=== PATIENT | female | born 1950 | race Caucasian/White ===

== ENCOUNTER → 2020-05-29 09:16 | Outpatient (CLI) | payer MEDICARE, SELFPAY ==
--- NOTE | 2020-05-29 09:22 | MM_ITS ---
PROCEDURE: MM DIG SCREENING MAMM BI W/CAD Referring Doctor: Sergio Giron Patient Age:69Y CLINICAL INDICATION: SCREENING 69-year-old. No hormones, no new complaints, noncontributory family history COMPARISON: MG DIGMAMMS MAMMOGRAM SCREEN-QUALITY IMPROVEMENT COORDINATOR N/C from 05/21/2008 MG DMSB DIGITAL MAMM-SCREEN BILATERAL from 07/20/2011 MG DMSB DIG MAMM-SCREEN FRANCOIS from 08/29/2013 MG DMSB DIG MAMM-SCREEN FRANCOIS from 10/23/2014 MG DMSB DIG MAMM-SCREEN FRANCOIS from 02/11/2016 MG DMSB DIG MAMM-SCREEN FRANCOIS W/CAD from 05/17/2017 TECHNIQUE: Standard CC and MLO images were obtained. R2 CAD reviewed. Bilateral digital breast tomosynthesis included. FINDINGS: Minimal residual fibroglandular elements with diffuse moderate fatty replacement. No new dominant or suspicious mass, no suspicious calcifications. Right breast. Stable Left breast: No new areas of concern. Stable Stable area of residual fibroglandular elements at the inferior left breast Bilateral follow-up 1 year recommended IMPRESSION: Stable bilateral mammogram. Bilateral follow-up 1 year recommended BI-RAD Category: 1 Negative FOLLOW-UP: 1YR 1 Year Follow-up (A letter has been sent to the patient regarding results of the study.) Dictated by: Ellis Andres MD 05/30/2020 12:45 Ellis Andres MD in [place] 05/30/2020 12:45
== END ==
PROVIDERS: PCP Family Medicine; Visit Provider Family Medicine
DX: Z12.31 Encounter for screening mammogram for malignant neoplasm of breast (principal)
CPT/HCPCS: 77063; 77067

== ENCOUNTER → 2021-04-11 09:53 | Outpatient (CLI) | payer MEDICARE, SELFPAY ==
--- NOTE | 2021-04-11 09:59 | XR_ITS ---
PROCEDURE: XR HIP RT 2-3V W/PELVIS CLINICAL INDICATION: RT HIP PAIN COMPARISON: CR,DX BONE3 BONE DENSITOMETRY(HIP:LT SPINE from 05/17/2017 FINDINGS: Are moderate osteoarthritic changes of the right hip with decrease in the joint space, osteosclerosis, and small osteophytes. No fracture or dislocation. No lytic or blastic change. An AP view of the pelvis shows a sclerotic focus in the proximal left femur but 15 mm and a small sclerotic focus in the left super acetabular region at 7 mm. There are degenerative changes in the lower lumbar spine. IMPRESSION: 1. Osteoarthritis of the right hip. 2. Blastic focus of the left proximal femur and left super acetabular region. These are nonspecific and could be due to bone islands or blastic metastatic foci. There are no previous studies for comparison. Alternatives the follow-up would whole body bone scan to evaluate for metastatic disease versus six-month radiographic follow-up of the pelvis and left hip to confirm stability of the sclerotic foci. Dictated by: Danny Wood MD 04/11/2021 11:01 Danny Wood MD in [place] 04/11/2021 11:01
== END ==
PROVIDERS: PCP Family Medicine; Visit Provider Family Medicine
DX: M25.551 Pain in right hip (principal)
CPT/HCPCS: 73502

== ENCOUNTER → 2021-04-24 08:51 | Outpatient (CLI) | payer MEDICARE, SELFPAY ==
--- NOTE | 2021-04-24 08:59 | NM_ITS ---
PROCEDURE: NM BONE SCAN WHOLE BODY CLINICAL INDICATION: ABN X-RAY OF FEMUR Right hip pain, abnormal x-ray, blastic lesion left femur COMPARISON: CR,DX BONE3 BONE DENSITOMETRY(HIP:LT SPINE from 05/17/2017 CR XR HIP RT 2-3V W/PELVIS from 04/11/2021 NM NM BONE SPECT from 04/24/2021 FINDINGS: Dose: 24.9 mCi technetium MDP. Whole body images are obtained along with SPECT images of the pelvis and hips. There is increased activity within the right hip consistent with patient's osteoarthritic changes as seen on recent x-ray. A focal area of increased density is noted in the left proximal femur on the radiograph. There is slight increased activity in the left greater trochanter. Increased activity also noted in the facet region at L5-S1 and in the midthoracic spine as well as the shoulders & left great toe. Slight increased activity in the left knee laterally.. SPECT images of the pelvis and hips once again demonstrates intense increased activity in the right acetabular region. There is also focal increased activity in the left greater trochanter. There is also focal increased activity in the proximal left femoral shaft that would correlate to the radiographic abnormality. On the radiograph there is a small sclerotic region in the left super acetabular area which does not demonstrate any increase in activity IMPRESSION: 1. The sclerotic lesion of the proximal left femur is hyperactive on the SPECT images. Retrospective review of a bone density study from 05/17/2017 does show increased density at this region. This could represent a bone island. 2. There is also increased activity in the left greater trochanter region. There is a vague area of lucency in this region on the pelvis x-ray from 04/11/2021. The patient's symptoms are reported to be on the right. Better evaluation of this possible lytic lesion could be obtained with MRI without and with contrast. Follow-up radiograph could also confirm stability as well. Correlation with patient's clinical status is recommended. Is there a known primary neoplasm? The overall bone scan appearance is not convincing for metastatic disease. Follow-up is suggested. 3. Arthritic changes in the right hip facets at the lumbosacral junction Dictated by: Danny Wood MD 04/28/2021 08:27 Danny Wood MD in [place] 04/28/2021 08:27
== END ==
PROVIDERS: PCP Family Medicine; Visit Provider Family Medicine
DX: R93.6 Abnormal findings on diagnostic imaging of limbs (principal)
CPT/HCPCS: 78306; 78803; A9503

== ENCOUNTER → 2021-05-07 07:40 | Outpatient (CLI) | payer MEDICARE, SELFPAY ==
--- NOTE | 2021-05-07 07:42 | MR_ITS ---
PROCEDURE: MR HIP LT WO CON CLINICAL INDICATION: NEOPLASM OF UNCERTAIN BEHAVIOR Follow-up abnormal bone scan and radiograph. Sclerotic lesion proximal left femur with questionable lucent lesion of the greater trochanter on the left with abnormal bone scan. COMPARISON: CR XR HIP RT 2-3V W/PELVIS from 04/11/2021 MR MR HIP RT WO CON from 05/07/2021 TECHNIQUE: Routine multiplanar multi echo sequences are performed without gadolinium enhancement. FINDINGS: Moderate osteoarthritic changes are present involving the right hip with decrease in joint space,. There is mild bone marrow edema of the subarticular region of the acetabulum and right femoral head laterally. Osteophyte formation is noted of the femoral head and acetabulum. There is a small right-sided hip joint effusion. No evidence of avascular necrosis. The left hip joint has an unremarkable appearance. A focal area of decreased T1 and T2 signal involves the proximal left femoral shaft laterally at 12 mm consistent with a sclerotic lesion noted on the radiograph consistent with a bone island. No lytic lesion is evident involving the left greater trochanter. There is a small amount of fluid signal intensity along the left greater trochanter within the soft tissues suggesting trochanteric bursitis. Diverticulosis involves the sigmoid colon. IMPRESSION: 1. Moderate osteoarthritic change of the right hip with a mild amount of edema within the acetabulum and within the femoral head laterally with a small right hip joint effusion. 2. Sclerotic lesion of the proximal left femur consistent with a bone island. No lytic lesion of the left greater trochanter. 3. Suspect trochanteric bursitis of the left hip with a small amount fluid along the greater trochanter. Dictated by: Danny Wood MD 05/08/2021 14:21 Danny Wood MD in [place] 05/08/2021 14:21
== END ==
PROVIDERS: PCP Family Medicine; Visit Provider Family Medicine
DX: D48.0 Neoplasm of uncertain behavior of bone and articular cartilage (principal); M25.551 Pain in right hip; M16.11 Unilateral primary osteoarthritis, right hip
CPT/HCPCS: 73721

== ENCOUNTER → 2021-05-14 13:43 | Outpatient (CLI) | payer MEDICARE, SELFPAY ==
--- NOTE | 2021-05-14 13:47 | FL_ITS ---
PROCEDURE: FLUORO UP TO 1 HOUR CLINICAL INDICATION: RT HIP PAIN,RT HIP ARTHRITIS COMPARISON: CR XR HIP RT 2-3V W/PELVIS from 04/11/2021 FINDINGS: Following obtaining informed consent and time-out procedure under aseptic conditions and local anesthesia with 1 percent buffered lidocaine, 20 gauge spinal needle was inserted along the superior aspect of the right femoral neck. Small amount of a mixture of lidocaine and contrast was injected and confirmed intra-articular position. Following this, a mixture of 4 mL of bupivacaine and 1 mL of Depo-Medrol was injected into the joint follow-up by 3 mL flush to remove contents from the tubing. Patient tolerated the procedure well without evidence of immediate complication. IMPRESSION: Uneventful right hip injection with fluoroscopic guidance Dictated by: Danny Wood MD 05/19/2021 09:14 Danny Wood MD in [place] 05/19/2021 09:14
== END ==
PROVIDERS: PCP Family Medicine; Visit Provider Family Medicine
DX: M25.551 Pain in right hip (principal)
CPT/HCPCS: 20610; 76000; J1040; Q9967

== ENCOUNTER → 2021-05-30 10:08 | Outpatient (CLI) | payer MEDICARE, SELFPAY ==
--- NOTE | 2021-05-30 10:10 | MM_ITS ---
PROCEDURE: MM DIG SCREENING MAMM BI W/CAD Digital Breast Tomosynthesis Included CLINICAL INDICATION: SCREENING COMPARISON: MG DMSB DIG MAMM-SCREEN FRANCOIS from 02/11/2016 MG DMSB DIG MAMM-SCREEN FRANCOIS W/CAD from 05/17/2017 MG MM DIG SCREENING MAMM BI W/CAD from 05/29/2020 TECHNIQUE: Standard CC and MLO images and 3D Tomosynthesis was obtained. R2 CAD reviewed. FINDINGS: There are scattered areas of fibroglandular density. Bilateral benign-appearing nodules are noted un not significantly changed. No suspicious appearing mass, malignant-appearing microcalcification, architectural distortion, or skin thickening. IMPRESSION: No change with no evidence of malignancy BI-RAD Category: 2 Benign Finding FOLLOW-UP: 1 YR 1 Year Follow-up (A letter has been sent to the patient regarding results of the study.) Dictated by: Danny Wood MD 06/11/2021 09:11 Danny Wood MD in [place] 06/11/2021 09:11
== END ==
PROVIDERS: PCP Family Medicine; Visit Provider Family Medicine
DX: Z12.31 Encounter for screening mammogram for malignant neoplasm of breast (principal)
CPT/HCPCS: 77063; 77067

== ENCOUNTER → 2021-09-23 10:40 | Outpatient (CLI) | payer MEDICARE, SELFPAY ==
--- NOTE | 2021-09-23 10:45 | XR_ITS ---
PROCEDURE: XR HIP RT 2-3V W/PELVIS CLINICAL INDICATION: RT HIP PAIN COMPARISON: CR XR HIP RT 2-3V W/PELVIS from 04/11/2021 FINDINGS: Status post right total hip replacement with good alignment. No fracture or dislocation. No orthopedic complications apparent. AP view of the pelvis demonstrates mild left-sided osteoarthritic changes in the hip with stable sclerotic focus in the super acetabular region and in the proximal left femur IMPRESSION: No acute findings. Dictated by: Danny Wood MD 09/23/2021 11:29 Danny Wood MD in [place] 09/23/2021 11:29
== END ==
PROVIDERS: PCP Family Medicine; Visit Provider Family Medicine
DX: M25.551 Pain in right hip (principal)
CPT/HCPCS: 73502

== ENCOUNTER → 2022-02-09 12:23 | Outpatient (CLI) | payer MEDICARE, SELFPAY ==
--- NOTE | 2022-02-09 12:36 | XR_ITS ---
FINAL REPORT CLINICAL HISTORY: RT SHOULDER PAIN. injury today FINDINGS: RIGHT SHOULDER Three views of the right shoulder were obtained. There is no fracture. There is anterior dislocation of the humerus at the glenohumeral joint. Mild AC and moderate glenohumeral joint degenerative changes are noted. The visualized bony structures are well aligned. No soft tissue abnormality is seen. IMPRESSION: Anterior dislocation of the humerus at the glenohumeral joint. No fracture. Reviewed, Interpreted and Dictated by El Belle III, MD Transcribed by Hansel Mace Authenticated by El Belle III, MD on 02/09/2022 12:55:[address] [facility]
--- NOTE | 2022-02-09 13:04 | HMH.ITSTN ---
called dr goodrich. hes out untill 2pm. told patient to go back to his office and wait to see what he wants to do with the patient or she can go to the ER.
== END ==
PROVIDERS: PCP Family Medicine; Visit Provider Family Medicine
DX: M25.511 Pain in right shoulder (principal)
CPT/HCPCS: 73030

== ENCOUNTER 2022-02-09 13:07 | Emergency (ER) | payer MEDICARE, SELFPAY ==
[2022-02-09] VITALS (38 sets, daily range): BP systolic 120–201; BP diastolic 59–118; PULSE 61–92; RESP 14–20; TEMP 37.1; O2SAT 95–100; BMI 36.4
--- NOTE | 2022-02-09 13:38 | PC.NURSE ---
SPOKE WITH FAMILY THEY ARE HEADING THIS WAY
--- NOTE | 2022-02-09 14:06 | XR_ITS ---
FINAL REPORT CLINICAL HISTORY: Post reduction COMPARISON: Earlier same day FINDINGS: RIGHT SHOULDER 3 views were obtained. There has been interval reduction of the glenohumeral dislocation. There is irregularity of the greater tuberosity worrisome for a Hill-Sachs deformity. Mild degenerative changes are seen. IMPRESSION: Interval reduction of glenohumeral dislocation. Reviewed, Interpreted and Dictated by El Belle III, MD Transcribed by Lela Ellsworth Authenticated by El Belle III, MD on 02/09/2022 03:18:12 PM [facility]
--- NOTE | 2022-02-09 14:35 | HMH.EDGENADL ---
ED Disposition Clinical Impression: Anterior shoulder dislocation Qualifiers: Encounter type: initial encounter Laterality: right Qualified Code(s): S43.014A - Anterior dislocation of right humerus, initial encounter Disposition: Home, Self-Care Condition on Discharge: Good Instructions: DI for Moderate Sedation Additional Instructions: Please follow-up with Dr. Mo with orthopedics and maintain immobilization with shoulder sling until that time. Please return to the emergency department with any new or worsening symptoms including worsening pain, changes in sensation or any other new or concerning symptoms. Referrals: Sergio Giron MD [Primary Care Provider] - Karl Mo MD [Staff Physician] - - Critical Care Critical Care Time: No Attestation: On 02/09/22, the high probability of a clinically significant, sudden or life threatening deterioration of the following system(s) required my full and direct attention, intervention and personal management. The time I documented below is in addition to time spent performing reported procedures but includes the following listed in this critical care notation. Medical Decision Making - Osmani Inquiry Pt receiving controlled substance: No Vital Signs: 02/09/22 13:08 02/09/22 13:29 02/09/22 15:15 Pulse Rate 69 61 Pulse Rate [Left Radial] 70 Respiratory Rate 18 15 Blood Pressure 156/83 H 139/77 Blood Pressure [Right Arm] 156/83 H Blood Pressure Mean [Right Arm] 107 Blood Pressure Source Automatic Cuff Automatic Cuff Blood Pressure Source [Right Arm] Automatic Cuff Blood Pressure Position Sitting Sitting Blood Pressure Position [Right Arm] Sitting 02 Sat by Pulse Oximetry 100 100 98 Oxygen Delivery Method Room Air Room Air Room Air Orders (Tests/Meds): ED MEDICATIONS Discontinued Medications Generic Name Dose Route Start Last Admin Trade Name Freq PRN Reason Stop Dose Admin Sodium Chloride 1,000 mls @ 999 mls/hr 02/09/22 13:30 02/09/22 13:38 Sod Chlor 0.9% 1000ml Bag IV 02/09/22 14:30 999 mls/hr .Q1H1M DOROTHY Administration Morphine Sulfate 4 mg 02/09/22 13:22 02/09/22 13:38 Morphine 4mg/Ml Syringe IV 02/09/22 13:23 4 mg ONCE ONE Administration Ondansetron HCl 4 mg 02/09/22 13:22 02/09/22 13:38 Ondansetron 4mg/2ml Vial IV 02/09/22 13:23 4 mg ONCE ONE Administration Medical Decision Narrative: 71-year-old female presents emergency department from outside office with radiograph showing anterior right shoulder dislocation that patient sustained today after catching herself when falling. Patient did not have any other injuries or tenderness distally. Patient was neurovascularly intact and sedation was performed with ketamine and propofol with successful reduction with patient neurovascularly intact postreduction. Patient was placed in a sling and given follow-up with orthopedics. Patient also given return precautions for the emergency department. Patient tolerated procedure well and is hemodynamically stable and in good spirits at discharge. Postreduction films confirm successful reduction. General Adult HPI - General Chief complaint: Fall Stated complaint: dislocated rt shoulder Time Seen by Provider: 02/09/22 13:30 Mode of Arrival: Ambulatory Limitations: No Limitations Description of Symptoms (Recalled from ER Triage Doc. by RN): pt c/o right arm pain after fall this morning. She was going to fall and stuck her arm out to protect herself. Outpt x-ray were completed showing and anterior dislocation. Denies any other injuries - History of Present Illness HPI narrative: 71-year-old female presents emergency department after she fell and caught herself with her right upper extremity with resultant right anterior shoulder dislocation without fracture from outside office patient denies hitting her head or loss of consciousness or other symptoms today. Pt has GCS 15 and is in good spirits. Reina
--- NOTE | 2022-02-09 14:48 | PC.NURSE ---
Spouse at BS
--- NOTE | 2022-02-09 16:03 | XR_ITS ---
PROCEDURE INFORMATION: Exam: XR Right Elbow Exam date and time: 02/09/2022 4:16 PM Age: 71 years old Clinical indication: Injury or trauma; Fall; Blunt trauma (contusions or hematomas); Elbow; Right; Injury date: Today TECHNIQUE: Imaging protocol: XR Right elbow. Views: 1 or 2 views. COMPARISON: NM BONE SCAN WHOLE BODY 04/24/2021 12:39 PM FINDINGS: Bones/joints: Normal. Soft tissues: Normal. IMPRESSION: No acute findings.
--- NOTE | 2022-02-09 16:03 | XR_ITS ---
PROCEDURE INFORMATION: Exam: XR Right Hand Exam date and time: 02/09/2022 4:16 PM Age: 71 years old Clinical indication: Injury or trauma; Fall; Blunt trauma (contusions or hematomas); Hand; Right; Injury date: Today TECHNIQUE: Imaging protocol: XR Right hand. Views: 1 or 2 views. COMPARISON: NM BONE SCAN WHOLE BODY 04/24/2021 12:39 PM FINDINGS: Bones/joints: Mild regions of periarticular osteopenia. Marked narrowing of the 2nd DIP joint. Mild-moderate narrowing of the 3rd through 5th PIP and DIP joints. Associated subtle cortical foci of cystic erosive change. No evidence of acute osseous injury. Soft tissues: Normal. IMPRESSION: 1. No evidence of acute osseous injury. 2. Degenerative arthritic type changes at the level of the PIP and DIP joints as described above. Findings most severe involving the 2nd DIP joint. Findings are nonspecific and may reflect inflammatory arthritis. Degenerative osteoarthritis should also be considered.
--- NOTE | 2022-02-09 16:03 | XR_ITS ---
PROCEDURE INFORMATION: Exam: XR Right Humerus Exam date and time: 02/09/2022 4:16 PM Age: 71 years old Clinical indication: Injury or trauma; Fall; Blunt trauma (contusions or hematomas); Arm, upper; Right; Injury date: Today TECHNIQUE: Imaging protocol: XR Right humerus. Views: 2 or more views. COMPARISON: CR XR SHOULDER RT MIN 2V 02/09/2022 2:10 PM FINDINGS: Bones/joints: AC degenerative changes with spur formation along the undersurface of the joint incompletely visualized. Soft tissues: Normal. IMPRESSION: 1. No evidence of acute osseous injury. 2. AC degenerative arthritic type changes. Potential for impingement mechanism.
--- NOTE | 2022-02-09 16:03 | XR_ITS ---
PROCEDURE INFORMATION: Exam: XR Right Forearm Exam date and time: 02/09/2022 4:16 PM Age: 71 years old Clinical indication: Injury or trauma; Fall; Blunt trauma (contusions or hematomas); Arm, lower; Right; Injury date: Today TECHNIQUE: Imaging protocol: XR Right forearm. Views: 2 views. COMPARISON: NM BONE SCAN WHOLE BODY 04/24/2021 12:39 PM FINDINGS: Bones/joints: Postoperative changes consistent with previous ORIF distal radius. Soft tissues: Normal. IMPRESSION: No acute findings.
--- NOTE | 2022-02-09 16:03 | XR_ITS ---
PROCEDURE INFORMATION: Exam: XR Right Wrist Exam date and time: 02/09/2022 4:16 PM Age: 71 years old Clinical indication: Injury or trauma; Fall; Blunt trauma (contusions or hematomas); Right; Injury date: Today; Prior surgery; Surgery date: 6+ months; Surgery type: Prior wrist surgery TECHNIQUE: Imaging protocol: XR Right wrist. Views: 1 or 2 views. COMPARISON: NM BONE SCAN WHOLE BODY 04/24/2021 12:39 PM FINDINGS: Bones/joints: Metallic hardware related to previous ORIF of the distal radius. No acute fracture involving the radius is demonstrated. Generalized osteopenia. Foci of subcortical cystic degenerative change within the lunate bone. There is mild increased sclerosis. Could not exclude mild changes of avascular necrosis involving the lunate bone. Mild degenerative changes involving the 1st carpal metacarpal articulation. Soft tissues: Normal. IMPRESSION: 1. No evidence of acute osseous injury. 2. Region of cystic degenerative change involving the lunate bone. Mild increase sclerosis. Clinically correlate as mild changes of avascular necrosis could not be excluded.
--- NOTE | 2022-02-09 16:04 | PC.NURSE ---
DR. SAINI PAGED AT THIS TIME
--- NOTE | 2022-02-09 16:17 | PC.NURSE ---
PT ASSISTED TO BR, AMBULATES WITHOUT DIFFICULTY, RETURNED TO BED
--- NOTE | 2022-02-09 16:18 | PC.NURSE ---
DR. CALLEJAS SPEAKING WITH DR. SAINI AT THIS TIME
== END 2022-02-09 18:26 | disposition home or self-care (01) ==
PROVIDERS: Emergency Provider Student in an Organized Health Care Education/Training Program; PCP Family Medicine
DX: S43.014A Anterior dislocation of right humerus, initial encounter (principal); Z79.899 Other long term (current) drug therapy; W19.XXXA Unspecified fall, initial encounter
CPT/HCPCS: 23655; 73030; 73060; 73070; 73090; 73100; 73120; 96361; 96374; 96375; 99152; 99285; J2405

== ENCOUNTER → 2022-08-18 08:07 | Outpatient (CLI) | payer MEDICARE, SELFPAY ==
--- NOTE | 2022-08-18 08:18 | MM_ITS ---
PROCEDURE INFORMATION: Exam: MG Bilateral Screening 3D Mammography Exam date and time: 08/18/2022 8:28 AM Age: 72 years old Clinical indication: Screening examination TECHNIQUE: Imaging protocol: Bilateral Screening tomosynthesis and 2D mammography including computer-aided detection (CAD) when performed. COMPARISON: 1. MG MM DIG SCREENING MAMM BI W/CAD 05/30/2021 10:32 AM 2. MG MM DIG SCREENING MAMM BI W/CAD 05/29/2020 9:23 AM FINDINGS: MAMMOGRAPHY: Breast composition: There are scattered areas of fibroglandular density. Mass: None. Architectural distortion: None. Calcifications: No suspicious calcifications. Asymmetric density: None. Skin thickening: None. Axillary adenopathy: None. IMPRESSION: No mammographic evidence of malignancy. Annual screening is recommended unless otherwise clinically indicated. ASSESSMENT: BI-RADS Category 1: Negative
== END ==
PROVIDERS: PCP Family Medicine; Visit Provider Family Medicine
DX: Z12.31 Encounter for screening mammogram for malignant neoplasm of breast (principal)
CPT/HCPCS: 77063; 77067

== ENCOUNTER 2022-11-26 10:00 | Outpatient (RCR) | payer MEDICARE, SELFPAY ==
--- NOTE | 2022-11-09 11:43 | HMH.PTOPEV ---
PT Outpatient Evaluation Rehab PT Outpatient Evaluation Start: 11/09/22 10:24 Freq: Status: Active Protocol: Document 11/09/22 11:26 NADEGE (Rec: 11/09/22 11:43 PHORSD [id number]) E-signed By Jb Toledo, PT Outpatient Therapy Subjective History Subjective History This is the initial PT eval for Shawna Mao 72 yowf who presents with c/o pain in the R calf x ~ 1 mo with insidious onset of symptoms. She states, [place] calf started hurting and it got much worse by 2 days later. She reports now that pain is worst with WBing on the R LE, but feels like a band around my calf. She also c/o worse pain at night, especially while trying to sleep. She reports prior hx of fxs to the R LE and DEANNE of the R hip. Chief Complaint Pain Symptom Type Ache,Sharp,Stabbing,Burning, Tingling Symptoms Relieved By Nothing Symptoms Aggravated By Physical Activity,Walking Prior Functional Limitations None Current Functional Limitations Standing,Recreation Activity, Walking Symptom Description Constant but Variable Level of pain today (0-10) 5 Pain scale - at its worst (0-10) 10 Hip/Knee Eval MMT right Knee Extension Strength Grade 5 Normal Knee Flexion Strength Grade 4 Good Special Tests Hip Bowstring (Cram) Test Positive Left,Positive Right Hip 90-90 Straight Leg Raise Test Negative Left,Negative Right Sciatic Nerve Tension Test Negative Left,Negative Right Knee Anterior Drawer Test Negative Left,Negative Right Knee Anterior Ismael Test Negative Left,Negative Right Knee Posterior Sag (Farley Drawer) Test Negative Left,Negative Right Knee Valgus Stress Test Negative Left,Negative Right Knee Varus Stress Test Negative Left,Negative Right Knee Vero Test Negative Left,Negative Right Ankle/Foot Eval Gait Observation General Gait Pattern Observation Antalgic Gait Assistive Device Ambulation Assistive Device Straight Cane Palpation Tenderness right Ankle/Foot Palpation Findings Tenderness Ankle/Foot Palpation Overall Comment post med R calf. ROM Ankle/Foot ROM Reason Not Measured Within Functional Limits MMT Ankle Dorsiflexion Strength Grade 5 Normal Ankle Plantarflexion Strength Grade 5
== END 2022-11-26 10:05 | disposition home or self-care (01) ==
LOC: PT 10:00
PROVIDERS: PCP Family Medicine; Visit Provider Family Medicine
DX: S86.811D Strain of other muscle(s) and tendon(s) at lower leg level, right leg, subsequent encounter (principal)
CPT/HCPCS: 20560; 97010; 97014; 97035; 97110; 97140; 97163; 97530; G0283

== ENCOUNTER → 2023-05-25 10:25 | Outpatient (CLI) | payer MEDICARE, SELFPAY ==
--- NOTE | 2023-05-25 10:30 | XR_ITS ---
FINAL REPORT CLINICAL HISTORY: PAIN IN LEFT FOOT COMPARISON: None FINDINGS: LEFT FOOT: Three views of the left foot demonstrate no acute fracture or dislocation. There is advanced heterotrophic osteoarthritic change in the first metatarsal phalangeal joint with small bony spurs and subchondral cysts as well as joint space narrowing. A small plantar calcaneal spur is present as well. The soft tissues are unremarkable. 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 Small plantar calcaneal spur. Reviewed, Interpreted and Dictated by Etienne Azevedo MD Transcribed by Haydee Andrade Authenticated and . [facility]
== END ==
PROVIDERS: PCP Family Medicine; Visit Provider Family Medicine
DX: M79.672 Pain in left foot (principal)
CPT/HCPCS: 73630

== ENCOUNTER → 2023-08-31 09:52 | Outpatient (CLI) | payer MEDICARE, SELFPAY ==
--- NOTE | 2023-08-31 09:58 | MM_ITS ---
PROCEDURE INFORMATION: Exam: MG Bilateral Screening 3D Mammography Exam date and time: 08/31/2023 10:00 AM Age: 73 years old Clinical indication: Screening examination TECHNIQUE: Imaging protocol: Bilateral Screening tomosynthesis and 2D mammography including computer-aided detection (CAD) when performed. COMPARISON: 1. MG MM DIG SCREENING MAMM BI W/CAD 08/18/2022 8:28 AM 2. MG MM DIG SCREENING MAMM BI W/CAD 05/30/2021 10:32 AM FINDINGS: MAMMOGRAPHY: Breast composition: There are scattered areas of fibroglandular density. Mass: Questionable 0.4 cm mass in the middle third of the right central breast Architectural distortion: None. Calcifications: No suspicious calcifications. Asymmetric density: None. Skin thickening: None. Axillary adenopathy: None. IMPRESSION: Patient to be recalled for spot compression views of the right breast in the CC and MLO projections, a full 90 degree lateral view, and right breast ultrasound for further evaluation of a right breast mass. ASSESSMENT: BI-RADS Category 0: Incomplete- Need Additional Imaging Evaluation and/or Prior Mammograms for Comparison
== END ==
PROVIDERS: PCP Family Medicine; Visit Provider Family Medicine
DX: Z12.31 Encounter for screening mammogram for malignant neoplasm of breast (principal)
CPT/HCPCS: 77063; 77067

== ENCOUNTER → 2023-09-14 13:38 | Outpatient (CLI) | payer MEDICARE, SELFPAY ==
--- NOTE | 2023-09-14 | US_ITS ---
PROCEDURE INFORMATION: Exam: US Right Breast, Complete MG Right Diagnostic Breast Tomosynthesis Exam date and time: 09/14/2023 1:54 PM Age: 73 years old Clinical indication: Callback for additional assessment of possible 0.4 cm mass in the middle 1/3 of the right central breast identified on screening mammogram 08/31/2023 TECHNIQUE: Imaging protocol: Complete ultrasound of all four quadrants of the right breast and the retroareolar regions, including ultrasound of the axilla when performed. Right Diagnostic tomosynthesis and 2D mammography including computer-aided detection (CAD) when performed. Unilateral or bilateral exam. COMPARISON: 1. MG MM DIG SCREENING MAMM BI W/CAD 08/31/2023 10:00 AM 2. MG MM DIG SCREENING MAMM BI W/CAD 08/18/2022 8:28 AM 3. MG MM DIG SCREENING MAMM BI W/CAD 05/30/2021 10:32 AM 4. MG MM DIG SCREENING MAMM BI W/CAD 05/29/2020 9:23 AM FINDINGS: MAMMOGRAPHY: Cc/lateral spot compression magnification views were performed The finding of interest in the central right middle 1/3 diminishes a prominence with spot compression views, only slightly persisting on lateral view as a circumscribed benign appearing 0.4 cm asymmetric density. No associated architectural distortion or suspicious calcifications are present In the upper inner anterior right breast, about 3 cm from the nipple, there is a mostly obscured nodular irregular 0.4 cm mass without associated architectural distortion or suspicious calcifications. ULTRASOUND: Ultrasound assessment of all 4 quadrants and retroareolar right breast as well as axilla was performed In the region of mammographic interest, along the 2 o'clock axis 2 cm from the right nipple, there is a hypoechoic somewhat vertically oriented 0.4 x 0.4 x 0.3 cm mass with posterior acoustic shadowing. . Along the 10 o'clock axis 2 cm from the right nipple, there is a 0.3 x 0.3 x 0.3 cm superficial circumscribed mass with generally benign features suggesting fat necrosis. This is mammographically occult IMPRESSION: Ultrasound-guided biopsy is recommended to definitively characterize a right 2 o'clock 2 cm from nipple 0.4 cm shadowing vertically oriented mass ASSESSMENT: BI-RADS category 4: Suspicious
== END ==
PROVIDERS: PCP Family Medicine; Visit Provider Family Medicine
DX: R92.8 Other abnormal and inconclusive findings on diagnostic imaging of breast (principal)
CPT/HCPCS: 76641; 77061; 77065; G0279

== ENCOUNTER 2023-10-06 08:00 | Outpatient (CLI) | payer MEDICARE, SELFPAY ==
--- NOTE | 2023-10-06 08:08 | US_ITS ---
FINAL REPORT CLINICAL HISTORY: ABN MAMM -- CORE BIOPSY -- RT BREAST 200 -- DR. CHRISTENSEN FINDINGS: ULTRASOUND-GUIDED RIGHT BREAST CORE BIOPSY TECHNIQUE: Limited images were obtained to localize region of interest. The right breast was prepped in a routine sterile fashion and locally anesthetized with 1% lidocaine. Standard written informed consent was obtained. Subcentimeter lesion at 2:00 was targeted. An 11-gauge vacuum assisted hand-held device was utilized. The needle was positioned posterior to the lesion. Multiple vacuum assisted core samples were obtained. The lesion was noted to be significantly smaller following biopsy. A biopsy marker clip was deployed in satisfactory position. Postbiopsy mammogram showed postbiopsy changes with clip in satisfactory position. Procedure was well tolerated . CONCLUSION: 1. Technically successful ultrasound guided vacuum assisted core biopsy of right breast lesion as above. 2. 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 There was no in situ or invasive carcinoma.. Pathology is concordant with mammographic findings. Given atypia seen on vacuum core biopsy, surgical excisional biopsy recommended. Localization should be based on clip placement since lesion was no longer readily evident following biopsy. Authenticated and [facility]
--- NOTE | 2023-10-06 08:09 | MM_ITS ---
FINAL REPORT CLINICAL HISTORY: . clip placement, right breast biopsy FINDINGS: MAMMOGRAM RIGHT TECHNIQUE: Standard digital 2-D views COMPARISON: Prebiopsy exam 08/31/2023 DENSITY: There are scattered areas of fibroglandular density FINDINGS: Post biopsy marker clip is noted to be in satisfactory position at 2:00. There was no lesion mammographically to account for the sonographic abnormality. New focal asymmetry in the biopsy marker clip is considered to represent small amount of hemorrhage. Postbiopsy changes are noted. IMPRESSION: Biopsy marker clip in good position RECOMMENDATION: Pathology reveals papilloma with associated atypical ductal hyperplasia. Surgical excisional biopsy is recommended. Tissue localization should be based on mammographic biopsy marker clip location since abnormality is unlikely to be sonographically evident following biopsy Authenticated and [facility]
== END 2023-10-06 23:59 ==
LOC: RAD 08:01
PROVIDERS: PCP Family Medicine; Visit Provider Family Medicine
DX: D48.61 Neoplasm of uncertain behavior of right breast (principal); R92.8 Other abnormal and inconclusive findings on diagnostic imaging of breast
CPT/HCPCS: 19083; 77065; 88305; 88341; 88342; 88360; C2618

== ENCOUNTER 2024-03-28 08:58 | Outpatient (CLI) | payer MEDICARE, SELFPAY ==
--- NOTE | 2024-03-28 09:03 | XR_ITS ---
FINAL REPORT CLINICAL HISTORY: Left foot pain COMPARISON: 05/25/2023 FINDINGS: LEFT FOOT Three views of the left foot demonstrate no acute fracture or dislocation. There is moderate degenerative change of the 1st MTP. Mild degenerative changes are noted elsewhere in the foot. Plantar calcaneal spur is present. The soft tissues are unremarkable. IMPRESSION: Degenerative changes without acute bony abnormality. Plantar calcaneal spur. Reviewed, Interpreted and Dictated by El Belle III, MD Transcribed by Sharon Perez Authenticated and [facility]
--- NOTE | 2024-03-28 09:03 | XR_ITS ---
FINAL REPORT CLINICAL HISTORY: foot pain FINDINGS: Right foot Three views were obtained. There is no acute fracture or dislocation. There are severe degenerative changes of the 1st metatarsophalangeal joint. Mild degenerative changes are seen elsewhere. No soft tissue abnormality is identified. IMPRESSION: Degenerative changes as above. Reviewed, Interpreted and Dictated by El Belle III, MD Transcribed by Caitlin Deluca Authenticated and [facility]
== END 2024-03-28 23:59 | disposition home or self-care (01) ==
LOC: RAD 08:59
PROVIDERS: PCP Family Medicine; Visit Provider Podiatrist
DX: M79.671 Pain in right foot (principal); M79.672 Pain in left foot
CPT/HCPCS: 73630

== ENCOUNTER 2024-03-29 11:43 | Outpatient (CLI) | payer MEDICARE, SELFPAY ==
--- NOTE | 2024-03-29 11:47 | XR_ITS ---
FINAL REPORT CLINICAL HISTORY: BILAT LOW BACK PAIN COMPARISON: None FINDINGS: 5 views of the lumbar spine were obtained. There is no evidence of fracture or dislocation. The vertebral alignment is normal. Moderate degenerative change is present with multilevel osteophytes and facet arthropathy. Mild vascular calcifications are present. The patient has had a prior right hip arthroplasty. IMPRESSION: Moderate degenerative change without acute bony abnormality. Reviewed, Interpreted and Dictated by El Belle III, MD Transcribed by Haydee Andrade Authenticated and [facility]
== END 2024-03-29 23:59 | disposition home or self-care (01) ==
LOC: RAD 11:44
PROVIDERS: PCP Family Medicine; Visit Provider Family Medicine
DX: M54.42 Lumbago with sciatica, left side (principal)
CPT/HCPCS: 72110

== ENCOUNTER 2024-05-03 08:53 | Outpatient (CLI) | payer MEDICARE, SELFPAY ==
--- NOTE | 2024-05-03 | MR_ITS ---
FINAL REPORT CLINICAL HISTORY: LBP, BILATERAL HIP PAIN pt states it feels like nerve pain in the lower back and hips COMPARISON: None FINDINGS: Multiplanar MR imaging of the lumbar spine was performed without contrast. There is mild to moderate limitation of image quality secondary to motion artifact. On the sagittal T2-weighted images, disc degeneration is seen throughout. There is mild retrolisthesis of L1 on L2, and mild anterolisthesis of L3 on L4. There is no evidence of fracture. Several vertebral body hemangiomas are identified. The conus has an unremarkable appearance. L1-2: An annular bulge is present with facet arthropathy and osteophytes. There is a right foraminal disc protrusion, with moderate right and mild left neural foraminal narrowing. L2-3: Annular bulge is present with facet arthropathy. There is mild bilateral neural foraminal narrowing. L3-4: An annular bulge is present with facet arthropathy. There is mild bilateral neuroforaminal narrowing, and mild canal stenosis with an AP canal diameter of 8 mm. L4-5: An annular bulge is present with facet arthropathy. There is a left paracentral disc protrusion which contacts the left L5 nerve root. Moderate bilateral neural foraminal narrowing is present. L5-S1: An annular bulge is present with facet arthropathy. There is mild bilateral neural foraminal narrowing. IMPRESSION: Multilevel degenerative disc disease and spondylosis as described, most severe at the L3-4 and L4-5 levels as described.. Reviewed, Interpreted and Dictated by El Belle III, MD Transcribed by Haydee Andrade Authenticated and [facility]
== END 2024-05-03 23:59 | disposition home or self-care (01) ==
LOC: RAD 08:53
PROVIDERS: PCP Family Medicine; Visit Provider Family Medicine
DX: M54.42 Lumbago with sciatica, left side (principal); M51.36 Other intervertebral disc degeneration, lumbar region; M47.816 Spondylosis without myelopathy or radiculopathy, lumbar region
CPT/HCPCS: 72148

== ENCOUNTER 2024-05-08 08:00 | Outpatient (RCR) | payer MEDICARE, SELFPAY ==
--- NOTE | 2024-04-14 12:55 | HMH.PTOPEV ---
PT Outpatient Evaluation Rehab PT Outpatient Evaluation Start: 04/14/24 09:47 Freq: Status: Active Protocol: Document 04/14/24 09:47 MO (Rec: 04/14/24 10:36 MO [id number]) E-signed By Nolberto Tillman, PT Outpatient Therapy Subjective History Subjective History Pt reports acute onset left localized hip/glut pain beginning ~6 months ago while bending over to wash the dogs. Pt reports immediate onset left posterior left hip pain, and this pain has now evolved into intermittent pain in the same area with referred pain into the left side of the low back and down the left leg to posterior thigh area. Pt reports 'some weakness in the left leg, but I'm still doing everything I need to do.' New diagnosis of cancer in past 12 No months? Chief Complaint Pain,Stiff,Catches/Locks, Paresthesia,Weakness Symptom Type Ache,Sharp,Dull,Stabbing, Shooting Symptoms Relieved By Rest/Positioning,Heat, Prescription Meds Symptoms Aggravated By Sitting,Standing,Bending/ Stooping,Walking,Lifting Prior Functional Limitations None Current Functional Limitations Lifting,Housework,Standing, Sitting,Walking Symptom Description Constant but Variable Level of pain today (0-10) 7 Pain scale - at its best (0-10) 5 Pain scale - at its worst (0-10) 9 Lumbopelvic Eval Posture Thoracic Spine Posture Standing Position Neutral Lumbar Spine Posture Standing Position Neutral Gait Observation General Gait Pattern Observation Antalgic Gait Palapation tenderness left lumbar spinal tenderness Yes: 2/4 paraspinal tenderness Yes: 2/4 buttock tenderness Yes: 3/4 Lumbar/Sacral Palpation Findings Tenderness,Trigger Point Accessory Movement L-spine Vertebrae Accessory Movements Central P/A [place] that Elicit Symptoms L4 left L5 left Range of Motion Lumbar Spine Active Flexion Range of 0-40 Motion (degrees) Lumbar Spine Active Extension Range of 0-5 Motion (degrees) Left Lumbar Spine Lateral Flexion Active 0-20 Range of Motion (degrees) Right Lumbar Spine Lateral Flexion 0-20 Active Range of Motion (degrees) Lumbar Spine ROM Limitations Pain Manual Muscle Test Right Knee Extension Strength Grade 5 Normal Knee Flexion Strength Grade 5 Normal Hip Flexion Strength Grade 4 Good Extensor Hallucis Longus Strength Grade 5 Normal Ankle Dorsiflexion Strength Grade 5 Normal Gastronemius/Soleus Strength Grade 5 Normal Left Knee Extension Strength Grade 4 Good Knee Flexion Strength Grade 4 Good Hip Flexion Strength Grade 4- Good- Extensor Hallucis Longus Strength Grade 4 Good Ankle Dorsiflexion Strength Grade 4 Good Gastronemius/Soleus Strength Grade 4 Good Special Tests Sciatic Nerve Tension Test Negative Right,Positive Left Reverse Sciatic Nerve Tension Test Negative Left,Positive Right Oswestry Index Section 1 Pain Intensity The pain is severe and does not vary much Section 2 Personal Care (Washing,Dresing) increase the pain, but I manage not to change my way of doing it Section 3 Lifting Pain prevents me from lifting weights off the floor Section 4 Walking I cannot walk at all without increasing pain Section 5 Sitting Pain prevents me from sitting for more than one hour Section 6 Standing I cannot stand more than 1 hour without increasing pain Section 7 Sleeping Because of pain, my normal nights sleep is less than 2 hours sleep Section 8 Social Life Pain has restricted my social life and I do not go out often Section 9 Traveling Pain restricts me to short necessary journeys under 30 minutes Section 10 Changing Degreee of Pain My pain is gradually getting worse Score and Risk Level Oswestry Sc 33 Oswestry Risk Level Severe Disability Outpatient Therapy Assessment Impairments Problems/Impairmments Palpation Tenderness,Impaired Range of Motion,Impaired Strength,Impaired Gait Pattern ,Impaired Walking,Impaired Standing,Impaired Sitting, Impaired Lifting,Impaired Household Care,Subjective C/O Pain,Impaired Self Care/Self Management Prognosis Rehab Potential Good Clinical Impression Consistent with Diagnosis Yes Short Term Goals Number of Weeks 4 Decreased Palpation Tenderness Yes: 1-2/4 lumbar, hip mm Increase Range of Motion Yes: 50-75% of WFL LUMBAR AROM Increase Strength Yes: 4/5 LEFT LE Increase Ability to Walk Yes: 30MIN Increase Ability to Stand Yes: 30MIN Increase Ability to Sit Yes: 30MIN Improve Oswestry Score Yes: 25 Decrease Subjective C/O Pain Yes: 3/10 W/ABOVE ACTIVITIES Patient to be Ind w/ HEP Yes [employer] Gat[employer]r Goals Number of Weeks 8-10 Decreased Palpation Tenderness Yes: 0-1/4 LEFT HIP, LUMBAR MM Increase Range of Motion Yes: WFL LUMBAR AROM Increase Strength Yes: 4+-5/5 LEFT LE Improve Gait Pattern without Assistive Yes: WFL Device Increase Ability to Walk Yes: 60MIN Increase Ability to Stand Yes: 60MIN Increase Ability to Sit Yes: 60MIN Improve Ability For Household Care Yes: WFL Improve Oswestry Score Yes: 15 Decrease Subjective C/O Pain Yes: 0-2/10 W/ABOVE ACTIVITIES Patient to be Ind w/ Advanced HEP Yes Outpatient Therapy Plan of Care Treatment Plan May Include Therapeutic Exercise Including Home Yes Exercise Program Manual Therapy Techniques Yes Neuromuscular Re-education Yes Therapeutic Activities to Return to Yes Previous Functional/Work Level Gait Training Yes ADL/Self Care Education Yes Mechanical Traction Yes Dry Needling Yes Thermal Modalities Yes Electrical Stimulation Yes Ultrasound/Phonophoresis Yes Eval/Re-Eval Yes Frequency Times per week 2-3 Duration Number of Weeks 8-10 Addendums This patient is a candidate for social No or vocational rehab? Patient/Guardian verbally acknowledges Yes understanding of treatment program and consents to further treatment? Patient/Guardian verbally acknowledges Yes understanding of diagnosis, prognosis and goals for treatment? Eval Complexity PT Charges 79042 - Moderate Complexity Shoulder/Elbow Eval Shoulder Objective Measurements Elbow Objective Measurements PHYSICIAN CERTIFICATION: I certify the specified therapy services for Shawna Mao are required, authorized, and reviewed every 30 days.
== END 2024-05-08 08:05 | disposition home or self-care (01) ==
LOC: PT 08:00
PROVIDERS: Visit Provider Family Medicine
DX: M54.42 Lumbago with sciatica, left side (principal)
CPT/HCPCS: 20561; 97010; 97012; 97014; 97035; 97163; 97535; G0283

== ENCOUNTER 2024-05-25 09:30 | Outpatient (POV) | payer MEDICARE, SELFPAY ==
--- NOTE | 2024-05-25 10:32 | A.OFFVIS_ITS ---
HPI Data of Consult Patient: new to practice Consult date: 05/25/24 Requesting Physician: May Lazaro APRN Primary Care Provider: Sergio Giron MD Consult Narrative Reason for consult: Low back pain, buttocks pain, left leg pain History of present illness: Ms. Mao is a 73 year old female who presents today as a new patient. She is a referral from Dr. Giron's office. Today she rates her pain a 10 out of 10. Patient states she has pain going down from her low back into her left buttocks and down her entire left leg. She does describe this as a constant aching, throbbing sensation with numbness and tingling. She states this has been going on for at least 3 to 4 months unrelated to any specific trauma or injury. She does state that she feels like she drags that left leg due to the pain and weakness. Patient does state that morning seem to be better and as the day goes on and her activity increases the nights are always worse. Patient has tried oral medications along with heat and ice and topicals with minimal relief. Patient does currently take Celebrex and states this does seem to help. Patient denies any prior surgery or injection history or chiropractor therapy. Patient has completed physical therapy with no additional improvement. She does state the pain interferes with her ability perform activities of daily living such as cooking and cleaning. Patient was tried on gabapentin however could not function with this medication. Her Osmani has been reviewed and is appropriate. CC: May Lazaro APRN [facility] Disclaimer: The information contained in this section may have been updated after the patient was seen, as this information can be updated by other users. Surgical History H/O wrist surgery plate History of hip replacement Family History (Updated 05/25/24 @ 10:34 by Uzma Cabrera RN) Other Unknown family medical history Social History Smoking Status: Never smoker alcohol intake: current alcohol intake frequency: holidays/special occasions only current occupational status: retired Travel in the last 8 weeks: None Review of Systems Review of Systems Review of systems:: pertinent systems reviewed and negative unless documented below Review of systems (narrative): Review of Systems: General: No recent weight changes, no fever, no sleep disturbances Respiratory: No cough, no shortness of air, no recurring pulmonary infections Cardiovascular/peripheral vascular: No chest pain, no palpitations, no edema, no shortness of breath Gastrointestinal: No new onset incontinence, normal bowel movements reported Genitourinary: No new onset incontinence Musculoskeletal: Low back pain, left leg pain Psychiatric: [Normal mood/affect] Neurological: [Denies weakness in extremities], [denies balance issues] Meds Home Medications and Allergies Home Medications ?Medication ?Instructions ?Recorded ?Confirmed ?Type celecoxib 200 mg capsule 200 mg PO 02/11/22 04/24/24 History amlodipine 5 mg tablet mg PO 08/04/23 04/24/24 History methocarbamol 500 mg tablet 500 mg PO TID PRN muscle pain #42 05/25/24 Rx tabs New Prescriptions to Start Prescriptions: methocarbamol May Lazaro Allergies Allergy/AdvReac Type Severity Reaction Status Date / Time No Known Allergies Allergy Verified 04/24/24 09:28 Objective Narrative: Physical Exam: General: Alert and oriented x3, no acute distress, pleasant and cooperative Lungs: Respirations even and unlabored, symmetrical chest expansion Eyes: PERRL Musculoskeletal: Flexion and extension of lumbar [spine] somewhat guarded secondary to pain, [antalgic gait noted] positive left leg raise Neurological: Speech clear, no gross sensory deficit Additional findings Additional findings: FINDINGS: Multiplanar MR imaging of the lumbar spine was performed without contrast. There is mild to moderate limitation of image quality secondary to motion artifact. On the sagittal T2-weighted images, disc degeneration is seen throughout. There is mild retrolisthesis of L1 on L2, and mild anterolisthesis of L3 on L4. There is no evidence of fracture. Several vertebral body hemangiomas are identified. The conus has an unremarkable appearance. L1-2: An annular bulge is present with facet arthropathy and osteophytes. There is a right foraminal disc protrusion, with moderate right and mild left neural foraminal narrowing. L2-3: Annular bulge is present with facet arthropathy. There is mild bilateral neural foraminal narrowing. L3-4: An annular bulge is present with facet arthropathy. There is mild bilateral neuroforaminal narrowing, and mild canal stenosis with an AP canal diameter of 8 mm. L4-5: An annular bulge is present with facet arthropathy. There is a left paracentral disc protrusion which contacts the left L5 nerve root. Moderate bilateral neural foraminal narrowing is present. L5-S1: An annular bulge is present with facet arthropathy. There is mild bilateral neural foraminal narrowing. IMPRESSION: Multilevel degenerative disc disease and spondylosis as described, most severe at the L3-4 and L4-5 levels as described.. Reviewed, Interpreted and Dictated by El Belle III, MD Transcribed by Haydee Andrade Authenticated and [facility] Assessment and Plan *Assessment and plan (1) Degenerative disc disease, lumbar: Status: Acute Category: Medical Code(s): M51.36 - Other intervertebral disc degeneration, lumbar region (2) Lumbar radiculopathy: Status: Acute Category: Medical Code(s): M54.16 - Radiculopathy, lumbar region (3) Lumbar nerve root impingement: Status: Acute Category: Medical Code(s): M54.16 - Radiculopathy, lumbar region Plan Patient is experiencing worsening pain throughout her low back with radiating symptoms down her entire left leg with numbness and tingling. Patient did have limited range of motion of her lumbar spine with a positive left leg raise and negative point tenderness on her left SI. I did review over her lumbar MRI with consistent findings at the L4-L5 level where she does have a left L4 nerve root that is being pushed up against. I reviewed with the patient that she may benefit from a lumbar epidural steroid injection. Risk and benefits were discussed with the patient and she would like to proceed forward with this plan of care. Patient is not on any blood thinners. I will also order the patient a compounded cream and send in a 2-week dose of methocarbamol 500 mg 3 times daily as needed. Patient has tried and failed conservative therapy including physical therapy and continued at home stretching and exercise for longer than 6 weeks. Patient will be scheduled for an LESI L4-L5 under fluoroscopy. Patient has been instructed to contact the clinic with any concerns before the next appointment. Dr. Castro has reviewed this note and agrees with this plan of care. This note was dictated using voice recognition software and make contain errors or omissions. All injections are used with Lidocaine or Bupivacaine and Depo Medrol.
[2024-05-25 10:33] VITALS: BP 160/88; PULSE 70; RESP 18; O2SAT 97; BMI 36.0
== END 2024-05-25 23:59 | disposition home or self-care (01) ==
PROVIDERS: PCP Family Medicine; Visit Provider Nurse Practitioner Family
DX: M51.16 Intervertebral disc disorders with radiculopathy, lumbar region (principal); Z73.89 Other problems related to life management difficulty
CPT/HCPCS: 99202; G0463

== ENCOUNTER 2024-06-23 13:12 | Outpatient (POV) | payer MEDICARE, SELFPAY ==
[2024-06-23 13:42] VITALS: BP 126/84; PULSE 75; RESP 16; O2SAT 97; BMI 35.9
--- NOTE | 2024-06-23 14:21 | EXP.PAIN.SOA ---
[facility] Disclaimer: The information contained in this section may have been updated after the patient was seen, as this information can be updated by other users. Surgical History H/O wrist surgery plate History of hip replacement Family History Other Unknown family medical history Social History Smoking Status: Never smoker alcohol intake: current alcohol intake frequency: holidays/special occasions only current occupational status: other Travel in the last 8 weeks: None PM Subjective & Objective Subjective Subjective:: Patient is a pleasant 74-year-old female who presents today for follow-up of lumbar epidural steroid injection L4-L5 under fluoroscopy. Today she rates her pain a 7 out of 10. Patient states that she really did not notice a huge amount of difference following this injection. Patient does state that immediately after having the injection that coming up off the table at the injection did seem like it changed some of her pain sensation and did feel better while the numbing medication was working. Patient does still state however she continues to experience pain all throughout her buttocks area along the left side and that it does affect her left foot. Patient states that she feels like it will give out at random times and that she feels like this is still causing significant disability. Patient does however state that she does feel like the pain is more tolerable than what it had been. Patient at her last visit was tried on compounded cream and methocarbamol 500 mg however she states that she only tried a very small amount of the cream and has not yet tried the muscle relaxer. Patient does state that she is very supersensitive to medication and in the past the Flexeril causes significant drowsiness to where she was concerned with trying it. Her Osmani has been reviewed and is appropriate. Review of Systems: General: No recent weight changes, no fever, no sleep disturbances Respiratory: No cough, no shortness of air, no recurring pulmonary infections Cardiovascular/peripheral vascular: No chest pain, no palpitations, no edema, no shortness of breath Gastrointestinal: No new onset incontinence, normal bowel movements reported Genitourinary: No new onset incontinence Musculoskeletal: Left buttocks pain, left leg pain, left foot pain Psychiatric: [Normal mood/affect] Neurological: [Denies weakness in extremities], [denies balance issues] Pain at rest (0-10 scale): 7 Objective Objective:: Physical Exam: General: Alert and oriented x3, no acute distress, pleasant and cooperative Lungs: Respirations even and unlabored, symmetrical chest expansion Eyes: PERRL Musculoskeletal: Flexion and extension of lumbar [spine] somewhat guarded secondary to pain, [antalgic gait noted] Neurological: Speech clear, no gross sensory deficit Has patient had previous pain injection?: Yes Percent improvement in pain since last injection: Minimal Conservative treatment options previously tried: Home exercise plan Length of treatment: Longer than 12 weeks Meds Home Medications and Allergies Home Medications ?Medication ?Instructions ?Recorded ?Confirmed ?Type celecoxib 200 mg capsule 200 mg PO DIRECTED Pain 02/11/22 06/23/24 History amlodipine 5 mg tablet 5 mg PO DIRECTED BLOOD PRESSURE 08/04/23 06/23/24 History methocarbamol 500 mg tablet 500 mg PO TID PRN muscle pain #42 05/25/24 06/23/24 Rx tabs New Prescriptions to Start Prescriptions: Allergies Allergy/AdvReac Type Severity Reaction Status Date / Time No Known Allergies Allergy Verified 06/06/24 12:00 Assessment and Plan *Assessment and plan (1) Lumbar radiculopathy: Status: Acute Category: Medical Code(s): M54.16 - Radiculopathy, lumbar region (2) Degenerative disc disease, lumbar: Status: Acute Category: Medical Code(s): M51.36 - Other intervertebral disc degeneration, lumbar region (3) Lumbar nerve root impingement: Status: Acute Category: Medical Code(s): M54.16 - Radiculopathy, lumbar region Plan I did discuss with the patient that it still may benefit her to try possibly a left SI injection or a caudal epidural. We will follow-up with the patient in 2 weeks to evaluate how her pain does over the the next time. Patient was counseled that the methocarbamol is typically less sedating for most patients and that if she has concerns she can cut it in half to try this medication. Patient was also recommended to continue to try the compounded cream. Patient agrees with this plan of care. Patient will return to clinic in 2 weeks for reevaluation of symptoms and plan of care. Patient has been instructed to contact the clinic with any concerns before the next appointment. Dr. Castro has reviewed this note and agrees with this plan of care. This note was dictated using voice recognition software and make contain errors or omissions. All injections are used with Lidocaine or Bupivacaine and Depo Medrol.
== END 2024-06-23 23:59 | disposition home or self-care (01) ==
LOC: SC.PAIN 13:14
PROVIDERS: PCP Family Medicine; Visit Provider Nurse Practitioner Family
DX: M51.16 Intervertebral disc disorders with radiculopathy, lumbar region (principal)
CPT/HCPCS: 99212; G0463

== ENCOUNTER 2024-07-20 13:03 | Outpatient (POV) | payer MEDICARE, SELFPAY ==
[2024-07-20 13:26] VITALS: BP 156/85; PULSE 74; RESP 18; O2SAT 98; BMI 33.4
--- NOTE | 2024-07-20 14:40 | A.OFFVIS_ITS ---
[facility] Disclaimer: The information contained in this section may have been updated after the patient was seen, as this information can be updated by other users. Surgical History H/O wrist surgery plate History of hip replacement Family History Other Unknown family medical history Social History Smoking Status: Never smoker alcohol intake: current alcohol intake frequency: holidays/special occasions only current occupational status: retired Travel in the last 8 weeks: None PM Subjective & Objective Subjective Subjective:: Patient is a pleasan worsening pain follow-up of lumbar epidural steroid injection L4-L5 under fluoroscopy. Today she rates her pain a 10 out of 10. She continues to experience pain all throughout her low back, bilateral hips and buttocks area. She does state that it is now even on the right side as well. Patient does state the pain is constant and is an aching throbbing sensation that does interfere with every activity of daily living. She states that she cannot do anything due to the worsening pain and is at her wits end. Patient is interested in any help we may be able to provide. Patient at her last visit was tried on compounded cream and methocarbamol 500 mg however she states that she only tried a very small amount of the cream and has not yet tried the muscle relaxer. Patient does state that she is very supersensitive to medication and in the past the Flexeril causes significant drowsiness to where she was concerned with trying it. Her Osmani has been reviewed and is appropriate. Review of Systems: General: No recent weight changes, no fever, no sleep disturbances Respiratory: No cough, no shortness of air, no recurring pulmonary infections Cardiovascular/peripheral vascular: No chest pain, no palpitations, no edema, no shortness of breath Gastrointestinal: No new onset incontinence, normal bowel movements reported Genitourinary: No new onset incontinence Musculoskeletal: Low back pain, bilateral hip pain Psychiatric: [Normal mood/affect] Neurological: [Denies weakness in extremities], [denies balance issues] Pain at rest (0-10 scale): 10 Objective Objective:: Physical Exam: General: Alert and oriented x3, no acute distress, pleasant and cooperative Lungs: Respirations even and unlabored, symmetrical chest expansion Eyes: PERRL Musculoskeletal: Flexion and extension of lumbar [spine] somewhat guarded secondary to pain, [antalgic gait noted] point tenderness along bilateral SIs with positive bilateral Shelby's, Jany's, Gaenslen's, compression and distraction exam Neurological: Speech clear, no gross sensory deficit Has patient had previous pain injection?: No Conservative treatment options previously tried: Home exercise plan Length of treatment: Longer than 12 weeks Meds Home Medications and Allergies Home Medications ?Medication ?Instructions ?Recorded ?Confirmed ?Type celecoxib 200 mg capsule 200 mg PO DIRECTED Pain 02/11/22 06/23/24 History amlodipine 5 mg tablet 5 mg PO DIRECTED BLOOD PRESSURE 08/04/23 06/23/24 History methocarbamol 500 mg tablet 500 mg PO TID PRN muscle pain #42 05/25/24 06/23/24 Rx tabs New Prescriptions to Start Prescriptions: Allergies Allergy/AdvReac Type Severity Reaction Status Date / Time No Known Allergies Allergy Verified 06/06/24 12:00 Assessment and Plan *Assessment and plan (1) Bilateral sacroiliitis: Status: Acute Category: Medical Code(s): M46.1 - Sacroiliitis, not elsewhere classified Plan Patient is experiencing worsening pain along her low back and bilateral hips with limited range of motion. Patient did have point tenderness along her bilateral SIs with positive bilateral Shelby's, Jany's, Gaenslen's, compression and distraction exam. I did discuss with the patient that I do believe she would benefit from bilateral SI injections. Risk and benefits were discussed with the patient and she would like to proceed forward with this plan of care. Patient has continued at home stretching exercise for longer than 12 weeks with no additional change. This pain has been going on for longer than 3 months. Patient will be scheduled for bilateral SI injections under fluoroscopy. Patient has been instructed to contact the clinic with any concerns before the next appointment. Dr. Castro has reviewed this note and agrees with this plan of care. This note was dictated using voice recognition software and make contain errors or omissions. All injections are used with Lidocaine or Bupivacaine and Depo Medrol.
== END 2024-07-20 23:59 | disposition home or self-care (01) ==
LOC: SC.PAIN 13:03
PROVIDERS: PCP Family Medicine; Visit Provider Nurse Practitioner Family
DX: M46.1 Sacroiliitis, not elsewhere classified (principal); Z73.89 Other problems related to life management difficulty
CPT/HCPCS: 99212; G0463

== ENCOUNTER 2024-07-28 13:42 | Day surgery (SDC) | payer MEDICARE, SELFPAY ==
[2024-07-28 14:09] VITALS: BP 146/75; PULSE 70; RESP 16; TEMP 36.6; O2SAT 97; BMI 35.9
[2024-07-28] MEDS: BUPIVACAINE 0.25% 10ML INJ 25 MG IJ (14:23)
[2024-07-28] MEDS: LIDOCAINE 1% 5ML PF VIAL 5 ML (14:23)
[2024-07-28] MEDS: methylPREDNISolone ACETATE 80MG/ML VIAL 80 MG (14:23)
[2024-07-28 14:24] VITALS: BP 143/89; PULSE 69; RESP 18; O2SAT 97
[2024-07-28 14:25] VITALS: BP 143/89; PULSE 69; RESP 18; O2SAT 97
--- NOTE | 2024-07-28 14:37 | P.PCN_ITS ---
Procedure Date: 07/28/24 Time: 14:35 Anesthesiologist:: Chris Tineo CRNA Complications:: None Pre-procedure Diagnosis:: Bilateral sacroiliitis Post-procedure Diagnosis:: Same Indications for Procedure:: Patient is a pleasant 74-year-old female who comes our clinic today for bilateral sacroiliac joint injection of cortisone and local anesthetic. Patient describes low lumbar back pain off the midline bilaterally. Bilateral posterior hip pain. Difficulty with sitting. Difficulty transitioning from sitting to standing. Upon examination she has extreme point tenderness over the bilateral sacroiliac joints. She rates her pain 8/10. Procedure Details:: Procedure: Bilateral sacroiliac joint injections under fluoroscopy Informed consent was obtained and the risks and benefits of the procedure were explained to the patient.~ The patient was taken to the procedure room and noninvasive monitors were placed including a noninvasive blood pressure cuff and pulse oximeter.~ The patient was placed prone on the procedure table. Both hips were cleansed using Betadine as a cleansing solution. C-arm fluoroscopy was used to view the right sacroiliac joint.~ The skin and subcutaneous tissues were anesthetized using lidocaine 1.5% and a 25-gauge needle.~ After this, a 22-gauge spinal needle was inserted under fluoroscopic guidance into the inferior aspect of the right sacroiliac joint.~ Omnipaque dye was injected and good spread was seen throughout the joint.~ After this, approximately 5 mL of bupivacaine, 0.25% and Depo-Medrol, 40 mg was incrementally injected into the right sacroiliac joint. We then moved to the left sacroiliac joint.~ The skin and subcutaneous tissues were anesthetized using lidocaine 1.5% and a 25-gauge needle.~ After this, a 22- gauge spinal needle was inserted under fluoroscopic guidance into the inferior aspect of the left sacroiliac joint.~ Omnipaque dye was injected and good spread was seen throughout the joint. After this, approximately 5 mL of bupivacaine, 0.25% and Depo-Medrol, 40 mg was incrementally injected into the left sacroiliac joint.~ The patient tolerated the procedure well with no complications. The patient was observed in the Pain Clinic and then was discharged home neurologically intact. Plan and Disposition:: Patient was discharged without incident.
[2024-07-28 14:40] VITALS: BP 155/83; PULSE 70; RESP 16; O2SAT 100
== END 2024-07-28 14:40 | disposition home or self-care (01) ==
PROVIDERS: PCP Family Medicine; Visit Provider Nurse Practitioner Family
DX: M46.1 Sacroiliitis, not elsewhere classified (principal)
CPT/HCPCS: 27096; G0260; J1010

== ENCOUNTER 2024-08-14 14:51 | Outpatient (POV) | payer MEDICARE, SELFPAY ==
--- NOTE | 2024-08-14 15:17 | A.OFFVIS_ITS ---
[facility] Disclaimer: The information contained in this section may have been updated after the patient was seen, as this information can be updated by other users. Surgical History H/O wrist surgery plate History of hip replacement Family History Other Unknown family medical history Social History Smoking Status: Never smoker alcohol intake: current alcohol intake frequency: holidays/special occasions only current occupational status: retired Travel in the last 8 weeks: None PM Subjective & Objective Subjective Subjective:: Patient is a pleasant 74-year-old female who presents today for follow-up of bilateral SI injections on 07/28/2024. Today she rates her pain a 10 out of 10. She denies any new trauma or injury. She does state that these injections still did not seem to do anything. She states that she still has the same pain that she has been experiencing that does radiate from her low back all the way down to her left lower extremity with numbness and tingling. Patient states that she did try more of the muscle relaxers we had given and that they do help a little but still when the pain gets worse as the day goes on nothing seems to make it easier. Patient does have difficulty getting up from a seated position due to the pain. Patient is scheduled for a neurosurgeon consult with Dr. Stafford in September. Patient is managed with compounded cream and methocarbamol 500 mg. Her Osmani has been reviewed and is appropriate. Review of Systems: General: No recent weight changes, no fever, no sleep disturbances Respiratory: No cough, no shortness of air, no recurring pulmonary infections Cardiovascular/peripheral vascular: No chest pain, no palpitations, no edema, no shortness of breath Gastrointestinal: No new onset incontinence, normal bowel movements reported Genitourinary: No new onset incontinence Musculoskeletal: Low back pain, left leg pain Psychiatric: [Normal mood/affect] Neurological: [Denies weakness in extremities], [denies balance issues] Pain at rest (0-10 scale): 10 Objective Objective:: Physical Exam: General: Alert and oriented x3, no acute distress, pleasant and cooperative Lungs: Respirations even and unlabored, symmetrical chest expansion Eyes: PERRL Musculoskeletal: Flexion and extension of lumbar [spine] somewhat guarded secondary to pain, [antalgic gait noted] Neurological: Speech clear, no gross sensory deficit Has patient had previous pain injection?: Yes Percent improvement in pain since last injection: Minimal Conservative treatment options previously tried: Home exercise plan Length of treatment: Longer than 12 weeks Meds Home Medications and Allergies Home Medications ?Medication ?Instructions ?Recorded ?Confirmed ?Type celecoxib 200 mg capsule 200 mg PO DIRECTED Pain 02/11/22 07/28/24 History amlodipine 5 mg tablet 5 mg PO DIRECTED BLOOD PRESSURE 08/04/23 07/28/24 History methocarbamol 500 mg tablet 500 mg PO TID PRN muscle pain #42 05/25/24 07/28/24 Rx tabs New Prescriptions to Start Prescriptions: Allergies Allergy/AdvReac Type Severity Reaction Status Date / Time No Known Allergies Allergy Verified 06/06/24 12:00 Assessment and Plan *Assessment and plan (1) Bilateral sacroiliitis: Status: Acute Category: Medical Code(s): M46.1 - Sacroiliitis, not elsewhere classified (2) Lumbar nerve root impingement: Status: Acute Category: Medical Code(s): M54.16 - Radiculopathy, lumbar region Plan Patient is still experiencing significant pain throughout her low back along her left extremity with complete numbness down that leg. I did discuss with the patient that considering her consultation with neurosurgery is not till September that we can send her in temporary dose of pain medication and that I would do something lower dose such as tramadol or Tylenol 3. Patient states that this time she would like to wait. Patient is not a fan of taking oral medications. I have counseled her that she can call us for her next appointment at her convenience and that if she does decide she would like to try some oral medications between now and her neurosurgeon consult that she can call and I will send in a prescription. Patient agrees with this plan of care. Patient has been instructed to contact the clinic with any concerns before the next appointment. Dr. Castro has reviewed this note and agrees with this plan of care. This note was dictated using voice recognition software and make contain errors or omissions. All injections are used with Lidocaine or Bupivacaine and Depo Medrol.
[2024-08-14 15:37] VITALS: BP 156/67; PULSE 76; RESP 14; O2SAT 94; BMI 35.9
== END 2024-08-14 23:59 | disposition home or self-care (01) ==
LOC: SC.PAIN 14:52
PROVIDERS: PCP Family Medicine; Visit Provider Nurse Practitioner Family
DX: M46.1 Sacroiliitis, not elsewhere classified (principal); M54.16 Radiculopathy, lumbar region; Z96.649 Presence of unspecified artificial hip joint
CPT/HCPCS: 99212; G0463

== ENCOUNTER 2024-10-23 10:22 | Outpatient (CLI) | payer MEDICARE, SELFPAY ==
--- NOTE | 2024-10-23 10:38 | XR_ITS ---
FINAL REPORT TECHNIQUE: 7 views of the lumbar spine, AP, lateral, oblique, and flexion and extension views in the lateral plane CLINICAL HISTORY: SPINAL STENOSIS COMPARISON: None FINDINGS: The vertebrae are normal height. Alignment is within normal limits. There is loss of disc space height at the L1-2 and L5-S1 levels. prevertebral soft tissues are unremarkable. There is no instability with flexion or extension. Advanced facet sclerosis is present in the lower lumbar spine. The patient has undergone a prior right hip arthroplasty. IMPRESSION: No instability is noted on flexion and extension views. No acute bony abnormality is identified. Reviewed, Interpreted and Dictated by Etienne Azevedo MD Transcribed by Haydee Andrade Authenticated and [facility]
== END 2024-10-23 23:59 | disposition home or self-care (01) ==
LOC: RAD 10:31
PROVIDERS: PCP Family Medicine; Visit Provider Physician Assistant
DX: M48.062 Spinal stenosis, lumbar region with neurogenic claudication (principal)
CPT/HCPCS: 72114

== ENCOUNTER 2024-11-14 07:50 | Outpatient (CLI) | payer MEDICARE, SELFPAY ==
--- NOTE | 2024-11-14 07:53 | MR_ITS ---
FINAL REPORT TECHNIQUE: Multiplanar and multisequence imaging of the lumbar spine was obtained without contrast. CLINICAL HISTORY: LUMBAR RADICULOPATHY. left sided low back pain. left leg pain, numbness and tingling COMPARISON: 05/03/2024 FINDINGS: There is minimal grade 1 anterior spondylolisthesis of L3 on 4, unchanged. Vertebral body height is preserved. The spinal cord ends at the level of L2. There is normal signal intensity within the substance of the distal spinal cord. Hemangiomas of L1 and L3 are stable. No acute paraspinal abnormality is identified. L1-2: An annular disc bulge is present with degenerative endplate changes and facet osteoarthropathy. Mild bilateral neuroforaminal narrowing is similar to previous. L2-3: Bilateral facet osteoarthropathy with mild bilateral neuroforaminal narrowing, stable. L3-4: An annular disc bulge is present with degenerative endplate changes and facet osteoarthropathy. Mild central stenosis. Mild to moderate bilateral neuroforaminal narrowing, unchanged. L4-5: An annular disc bulge is present with degenerative endplate changes and facet osteoarthropathy. Mild to moderate bilateral neuroforaminal narrowing, stable. L5-S1: Prominent facet osteoarthropathy. Mild right and moderate left neuroforaminal narrowing, stable. IMPRESSION: Degenerative disc disease, unchanged from previous. Reviewed, Interpreted and Dictated by Sharmin Escobar MD Transcribed by Caitlin Deluca Authenticated and [facility]
== END 2024-11-14 23:59 | disposition home or self-care (01) ==
LOC: RAD 07:51
PROVIDERS: PCP Family Medicine; Visit Provider Nurse Practitioner Family
DX: M51.26 Other intervertebral disc displacement, lumbar region (principal); M54.16 Radiculopathy, lumbar region
CPT/HCPCS: 72148

== ENCOUNTER 2024-12-25 11:20 | Outpatient (CLI) | payer MEDICARE, SELFPAY ==
--- NOTE | 2024-12-25 11:28 | ECG_ITS ---
APPROVED REPORT Exam: Resting ECG HR:67 bpm ECG Measurements Heart Rate 67 AXES TN 145 P 55 QRSd 110 QRS -11 QT 390 T 60 QTc 405 Conclusion SINUS RHYTHM INDETERMINATE AXIS INCOMPLETE RIGHT BUNDLE BRANCH BLOCK [90+ ms QRS DURATION, TERMINAL R IN V1/V2, 40+ ms S IN I/aVL/V4/V5/V6] BORDERLINE ECG UNCONFIRMED REPORT Electronically signed by : Drew Chaudhari MD 12/26/2024 08:07:16
[2024-12-25 12:15] LABS: Basophils % 0.4 % (0.1-2.0); Eosinophils # 0.1 K/mm3 (0.0-0.4); Eosinophils % 0.7 % (0.1-12.0); Hemoglobin 14.7 g/dL (12.2-16.2); Lymphocytes # 1.1 K/mm3 (0.7-4.5); Lymphocytes % 15.8 % (10-50); Mean Corpuscular HGB Conc 33.4 g/dL (31.8-35.4); Mean Corpuscular Hemoglobin 30.9 pg (27.0-31.2); Mean Corpuscular Volume 92.4 fl (81-99); Mean Platelet Volume 10.3 fl (7.4-10.4); Monocytes # 0.6 K/mm3 (0.1-1.0); Monocytes % 8.6 % (1.7-9.3); Neutrophils % 74.5 % (37.0-80.0); Platelet Count 292 K/mm3 (142-424); Red Blood Count 4.76 M/mm3 (4.20-5.40); Red Cell Distribution Width 13.8 % (11.5-17.5); White Blood Count 6.7 K/mm3 (4.8-10.8)
[2024-12-25 12:47] LABS: Chloride 104 mmol/L (98-107); Sodium 139 mmol/L (136-145)
[2024-12-25 12:48] LABS: Albumin Level 4.8 g/dl (3.5-5.0); Potassium 4.5 mmoL/L (3.5-5.1)
[2024-12-25 12:51] LABS: Blood Urea Nitrogen 19 mg/dl (7-17); Calcium 9.5 mg/dl (8.4-10.2); Estimated Glomerular Filt Rate 82 ml/min (>60); GFR (African American) 99 ML/MIN (>60); Glucose 83 mg/dl (74-100); Phosphorous 3.3 mg/dl (2.5-4.5)
[2024-12-25 12:59] LABS: Anion Gap 12.5 mEq/L (5-15); Carbon Dioxide 27 mmol/L (22.0-30.0)
== END 2024-12-25 23:59 | disposition home or self-care (01) ==
LOC: RT 11:21
PROVIDERS: Nurse Practitioner Family; PCP Family Medicine; Visit Provider Neurological Surgery
DX: M54.16 Radiculopathy, lumbar region (principal)
CPT/HCPCS: 36415; 80069; 85025; 93005

== ENCOUNTER 2025-02-20 11:00 | Outpatient (RCR) | payer MEDICARE, SELFPAY | END 2025-02-20 23:59 | disposition home or self-care (01) | LOC: PT 11:00 | PROVIDERS: PCP Family Medicine; Visit Provider Nurse Practitioner Acute Care | DX: Z48.811 Encounter for surgical aftercare following surgery on the nervous system (principal) | CPT/HCPCS: 97014; 97110; 97140; 97163; 97530; G0283 ==

== ENCOUNTER 2025-03-12 13:21 | Outpatient (CLI) | payer MEDICARE, SELFPAY ==
--- OUTSIDE RECORDS SUMMARY | 2025-02-02 05:45 | XMS_ITS ---
Author Organization [facility] Address [address] [place] [address] 36 [facility] [address]C [place] Natarajan [id number] Care Team Providers Care Behavior Support Specialist Name Role Phone Sergio Giron Primary Care Provider Allergies No Known Allergies REASON FOR VISIT 6 month ckup Medications Medication SIG (Take, Route, Frequency, Duration) Notes Start Date End Date Status amLODIPine Besylate 5 MG 1 tablet Orally Once a day as needed 04/27/2023 Active Baclofen 5 MG 1 tablet as needed O rally Once a day for 30 day(s) Active Celecoxib 200 mg 1 capsule with food Orally once daily for 90 days Active Vital Signs Blood pressure systolic 132 mm Hg 02/03/20 25 Blood pressure diastolic 80 mm Hg 025 Heart Rate 77 /min 02/02/2025 Height 63 in 02/02/2025 Weight 000 lbs 02/02/2025 Encounters Encounter Location Date Provider Diagnosis Carlos 1210 [facility] 36 [facility] [address]C [place] Natarajan [phone] 02/02/2025 Sergio Giron Primary hypertension I10 Assessments Encounter Date Diagnosis (ICD Code) Assessment Notes Treatment Notes Treatment Clinical Notes Section Notes 02/02/2025 Primary hypertension (ICD-10 - I10) Plan Of Treatment Medication Medication Name Sig Start Date Stop Date Notes amLODIPine Besylate 5 MG 1 tablet Orally Once a day as needed 04/27/2023 Next Appt Details Follow Up: 6 Months, Reason: Provider Name:Sergio stafford, 08/06/2025 09:00:00 AM, 1210 [facility] 36 [facility], [address], [place], [phone], Progress Notes * AILZA MAOEDOB:0 1950 (74 yo F)Acc No.[id number]:02/02/2025 Progress Notes Patient: ALIZA STOCKTON Provider: Russ Giron M.D. :1950 A ge:74 Y S ex:Female Date:02/02/2025 Address:[address] [place] [address] [address], [id number] Subjective: * Chief Complaints: * 1 . [...] urine. 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 Heart: R SR. Lungs: c lear to auscultation. Assessment: * Assessment: 1. P rimary hypertension - I10 (Primary) Plan: * Treatment: * Procedure Codes: G 2211 Complex e/m visit add on, 3075F SYST BP GE 130 - 139MM HG, 3079F DIAST BP 80-89 MM HG * Follow Up: 6 Months * Billing Information: * Visit Code: 80572 Office Visit, Est Pt., Level 3. * Procedure Codes: G2211 Complex e/m visit add on. 3075F SYST BP GE 130 - 139MM HG. 3079F DIAST BP 80-89 MM HG. * Electronic signature of Tessa Giron MD on 03/12/2025 at 01:25 PM EDT Sign off status: Pending * Provider: Russ Giron M.D. Date: 0 02/02/2025 Generated for Cyrus viera/Annabel/Jacquelineitting on: 0 03/12/2025 01:25 PM EDT History and Physical Notes * HPI (History [...]
--- OUTSIDE RECORDS SUMMARY | 2025-02-21 07:45 | XMS_ITS ---
Author Organization Carlos Address 1210 [facility] [address] [place] [phone] Care Team Providers Care Family Court Registrar Name Role Phone Sergio Giron Primary Care Provider Allergies No Known Allergies REASON FOR VISIT back problems Medications Medication SIG (Take, Route, Frequency, Duration) Notes Start Date End Date Status Baclofen 5 MG 1 tablet as needed O rally Once a day for 30 day(s) Active Wegovy 0.25 MG/0.5ML 0.5 mL Subcutaneous once weekly 02/21/2025 Active Celecoxib 200 mg 1 capsule with food Orally once daily for 90 days Active amLODIPine Besylate 5 MG 1 tablet Orally Once a day as needed 04/27/2023 Active Problems Problem Type SNOMED Code ICD Code Onset Dates Problem Status W/U Status Risk Notes Problem [id number] BMI 36.0-36.9,ad ult (Z68.36) Active confirmed Vital Signs Blood pressure systolic 130 mm Hg 02/22/20 25 Blood pressure diastolic 80 mm Hg 025 Heart Rate 72 /min 02/21/2025 Height 63 in 02/21/2025 Weight 206 lbs 02/21/2025 BMI 36.49 kg/m2 02/21/2025 Encounters Encounter Location Date Provider Diagnosis Jennifer [address] [place] [address] [place] [id number] 02/21/2025 Sergio Giron Lumbago with sciatic a, [...] rt progress, Reason: Provider Name:Sergio Olmedo , 08/06/2025 09:00:00 AM, 1210 [place] [facility] [address], [address] , [place], [place], [phone], Progress Notes * ALIZA MAOEDOB:0 1950 (74 yo F)Acc No.[id number]:02/21/2025 Progress Notes Patient: ALIZA STOCKTON Provider: Russ Giron M.D. :1950 A ge:74 Y S ex:Female Date:02/21/2025 Address:[address] [place] [address], [id number] Subjective: * Chief Complaints: * 1 . [...] urine. 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 [...] morbid obesity - E66.9 3 . B IN 36.0-36.9,adult - Z68.36 Plan: * Treatment: 2. N on morbid obesity Start Wegovy Solution Auto-injector, 0.25 MG/0.5ML, 0.5 mL, Subcutaneous, once weekly. * Procedure Codes: G 2211 Complex e/m visit add on, G8752 MOST RECENT SYSTOLIC BP < 140MM HG, G8754 MOST RECENT DIASTOLIC BP < 90MM HG * Follow Up: v ia phone to report progress * Billing Information: * Visit Code: 31259 Office Visit, Est Pt., Level 3. * Procedure Codes: G2211 Complex e/m visit add on. G8752 MOST RECENT SYSTOLIC BP < 140MM HG. G8754 MOST RECENT DIASTOLIC BP < 90MM HG. * Electronic signature of Tessa Giron MD on 03/12/2025 at 01:25 PM EDT Sign off status: Pending * Provider: Russ Giron M.D. Date: 0 02/21/2025 Generated for Cyrus viera/Annabel/Jack on: 0 03/12/2025 01:25 PM EDT History [...]
--- OUTSIDE RECORDS SUMMARY | 2025-03-01 07:05 | XMS_ITS ---
Author Organization [facility] Address [address] [place] [address] [address] [place] Natarajan [phone] Care Team Providers Care Denture Technician Name Role Phone Sergio Giron Primary Care Provider REASON FOR VISIT due for screening Encounters Encounter Location Date Provider [facility] 36 [facility] [address] [place] [phone] 03/01/2025 Sergio Giron Screening for osteoporosis Z13.820 Assessments Encounter Date Diagnosis (ICD Code) Assessment Notes Treatment Notes Treatment Clinical Notes Section Notes 03/01/2025 Screening for osteoporosis (ICD-10 - Z13.820) Plan Of Treatment Pending Test Test Name Order Date Bone density 03/01/2025 Next Appt Details Provider Name:Sergio Olmedo ry, 08/06/2025 09:00:00 AM, [address], [address], [place], [id number], Progress Notes * ALIZA MAOOB:0 1950 (74 yo F)Acc No.[id number]:03/01/2025 Patient: ALIZA STOCKTON :1950 A ge:74 Y S ex:Female Address:[address] [place] [address] [address] , [place] [address] Subjective: * Chief Complaints: * D ue for screening * Medical History: * Surgical History: * Hospitalization/Major Diagno stic Procedure: * Medications: Objective: * Vitals: * Physical Examination: Assessment: * Assessment: 1. S creening for osteoporosis - Z13.820 (Primary) Plan: * Treatment: * Procedure Codes: * true * Date: Generated for Cyrus viera/Annabel/Jack on: 0 03/12/2025 01:25 PM EDT
--- NOTE | 2025-03-12 13:24 | XR_ITS ---
FINAL REPORT TECHNIQUE: Bone mineral density was calculated of the lumbar spine and hip. CLINICAL HISTORY: SCREENING COMPARISON: None FINDINGS: Using L1-4, the bone mineral density of the spine is 1.069 g/cm2, corresponding to T-score of 0.2. Using the left hip, the bone mineral density of the femoral neck is 0.885 g/cm2, corresponding to a T-score of -0.5. Using the left forearm, the bone mineral density of the mid is 0.490 g/cm?, corresponding to a T-score of -2.1. NOTE: T-score: Standard deviation compared with peak bone mass of young adult mean. *Following the recommendations of the International Society of Bone densitometry, classification of hip BMD is based on the lower of two T-scores; total hip or femoral neck. IMPRESSION: Diminished bone mineral density of the left forearm consistent with osteopenia. Normal bone mineral density of the lumbar spine and left hip. Reviewed, Interpreted and Dictated by Etienne Azevedo MD Transcribed by Haydee Andrade Authenticated and [facility]
--- OUTSIDE RECORDS SUMMARY | 2025-03-12 13:26 | XMS_ITS | Data Portability ---
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 PROCEDURE: Right breast localized excisional biopsy and fluoroscopic interpretation. SURGEON: Arlyn Silva MD WRITING TUTOR: Basil Perez, who helped with retraction. SPECIMEN: Right breast papilloma at 2 o'clock. FINDINGS: Patient was found to have the localizer reflector as well as the hematoma and clip within the specimen. Everything palpable was removed. INDICATIONS: Patient is a 73-year-old female who was found to have an abnormality in the right breast at approximately 2 o'clock. This was biopsied and proven to be a papilloma with atypical ductal hyperplasia. I recommended excision and as this was not palpable other than the hematoma, I recommended localization. The localizer was placed to the posterior aspect of the hematoma. OPERATIVE NOTE: Patient was brought to the operating room and placed in the supine position. Appropriate anesthesia was initiated. Patient was identified to person and procedure and operating room staff agreed. Patient was prepped and draped in the normal sterile fashion. I began by using the localizer to identify the area of most uptake and marked the upper inner edge of the areola. I anesthetized the areas with Marcaine. I made skin incision and continued down using cautery. I dissected up toward the area of concern and removed the entire hematoma. This did include whatever residual mass there was, the localizer reflector and biopsy clip. There was nothing else palpable of concern. Fluoroscopic image of the specimen documented the localizer and biopsy clip were within the specimen and that was then sent to pathology for permanent evaluation. Once again, I checked for hemostasis and made sure there was nothing else palpable of concern. I closed the deep tissue with interrupted 3-0 Vicryl and the skin was reapproximated using a running subcuticular 4-0 Monocryl. Mastisol and Steri-Strips were applied. Patient tolerated the procedure and was sent to postanesthesia care unit in stable condition. [email or web address] Not available 11/12/2023 19:59:44 Plan of Treatment Reminders Order Date Submit Date Provider Last Modified By Organization Details Last Modified Time Details Appointments None recorded . Lab None recorded . Referral None recorded . Procedures None recorded . Surgeries None recorded . Imaging MAMMO, screenin g, tomosynt hesis, bilatera l, w/ CAD - Due after 6. Clinic follow-u p same day please. Thanks! 025 07/11/20 25 [email or web address] [facility], [address] [place], [address], 5 13:54:56 MAMMO, screenin g, tomosynt hesis, bilatera l, w/ CAD - Due in 10/2024. Clinic follow-u p with Pat same day please. Thanks! 024 05/19/20 24 [email or web address] [facility], [address] [place], [address], 4 08:56:56 Medication Orders None recorded . Patient TargetsNo targets recorded. Patient InstructionsNo instructions recorded. Reason for Referral None Reported. Results Created Date Observation Date Name Description Value Unit Range Abnormal Flag Note LastModifiedBy Organization Detail LastModifiedTime 11/11/19 24 11/11/2023 COMPL ETE BLOOD COUNT white blood cells 9.5 10*3/ uL 3.8-10 .8 normal Not Available [facility] [address] [place] [address], [address], 11/11/2023 11:33:30 11/11/19 24 11/11/2023 COMPL ETE BLOOD COUNT red blood cells 4.62 10*6/ uL 3.80-5 .20 normal Not Available [facility] [address] [place] [address], [address], 11/11/2023 11:33:30 11/11/19 24 11/11/2023 COMPL ETE BLOOD COUNT hemoglobin 14.3 g/dL 12.0-1 6.0 normal Not Available [facility] [address] [place] [address], [address], 11/11/2023 11:33:30 11/11/19 24 11/11/2023 COMPL ETE BLOOD COUNT hematocrit 42.6 % 35.0-4 7.0 normal Not Available [facility] [address] [place] [address], [address], 11/11/2023 11:33:30 11/11/19 24 11/11/2023 COMPL ETE BLOOD COUNT MCV 92 fL 80-100 normal Not Available [facility] [address] [place] [address], [address], 11/11/2023 11:33:30 11/11/19 24 11/11/2023 COMPL ETE BLOOD COUNT MCH 31 pg 26-35 normal Not Available [facility] [address] [place] [address], [address], 11/11/2023 11:33:30 11/11/19 24 11/11/2023 COMPL ETE BLOOD COUNT MCHC 34 g/dL 32-36 normal Not Available [facility] [address] [place] [address], [address], 11/11/2023 11:33:30 11/11/19 24 11/11/2023 COMPL ETE BLOOD COUNT RDW 13.6 % 11.0-1 5.0 normal Not Available [facility] [address] [place] [address], [address], 11/11/2023 11:33:30 11/11/19 24 11/11/2023 COMPL ETE BLOOD COUNT MPV 8.3 fL 6.2-10 .5 normal Not Available [facility] [address] [place] [address], [address], 11/11/2023 11:33:30 11/11/19 24 11/11/2023 COMPL ETE BLOOD COUNT platelet count 300 10*3/ uL 150-40 0 normal Not Available [facility] [address] [place] [address], [address], 11/11/2023 11:33:30 11/11/19 24 11/11/2023 COMPL ETE BLOOD COUNT neutrophil,a bsolute 7.4 10*3/ uL 1.6-8. 4 normal Not Available [facility] [address] [place] [address], [address], 11/11/2023 11:33:30 11/11/19 24 11/11/2023 COMPL ETE BLOOD COUNT lymphocyte,a bsolute 1.1 10*3/ uL 0.4-5. 1 normal Not Available [facility] [address] [place] [address], [address], 11/11/2023 11:33:30 11/11/19 24 11/11/2023 COMPL ETE BLOOD COUNT monocyte,abs olute 0.8 10*3/ uL 0.0-1. 2 normal Not Available [facility] [address] [place] [address], [address], 11/11/2023 11:33:30 11/11/19 24 11/11/2023 COMPL ETE BLOOD COUNT eosinophil,a bsolute 0.1 10*3/ uL 0.0-0. 8 normal Not Available [facility] [address] [place] [address], [address], 11/11/2023 11:33:30 11/11/19 24 11/11/2023 COMPL ETE BLOOD COUNT basophil,abs olute 0.1 10*3/ uL 0.0-0. 3 normal Not Available [facility] [address] [place] [address], [address], 11/11/2023 11:33:30 11/11/19 24 11/11/2023 COMPL ETE BLOOD COUNT % neutrophils 78.1 % 42.0-7 8.0 high Not Available [facility] [address] [place] [address], [address], 11/11/2023 11:33:30 11/11/19 24 11/11/2023 COMPL ETE BLOOD COUNT % lymphocytes 12.1 % 11.0-4 7.0 normal Not Available [facility] [address] [place] [address], [phone], 11/11/2023 11:33:30 11/11/19 24 11/11/2023 COMPL ETE BLOOD COUNT % monocytes 8.4 % 0.0-11 .0 normal Not Available [facility] [address] [place] [address], [address], 11/11/2023 11:33:30 11/11/19 24 11/11/2023 COMPL ETE BLOOD COUNT % eosinophils 0.7 % 0.0-7. 0 normal Not Available [facility] [address] [place] [address], [address], 11/11/2023 11:33:30 11/11/19 24 11/11/2023 COMPL ETE BLOOD COUNT % basophils 0.7 % 0.0-3. 0 normal Not Available [facility] [address] [place] [address], [address], 11/11/2023 11:33:30 11/11/19 24 11/11/2023 COMPL ETE BLOOD COUNT nucleated red cells 0.0 % 0.0-0. 9 normal Not Available [facility] [address] [place] [address], [address], 11/11/2023 11:33:30 11/11/19 24 11/11/2023 COMPL ETE BLOOD COUNT nucleated RBCs, absolute 0.00 10*3/ uL not estab. normal Not Available [facility] [address] [place] [address], [address], 11/11/2023 11:33:30 11/11/19 24 11/11/2023 COMP. METAB OLIC PANEL glucose 91 mg/dL 74-100 normal Not Available [facility] [address] [place] [address], [address], 11/11/2023 12:18:41 11/11/19 24 11/11/2023 COMP. METAB OLIC PANEL blood urea nitrogen 18 mg/dL 6-20 normal Not Available [facility] [address] [place] [address], [address], 11/11/2023 12:18:41 11/11/19 24 11/11/2023 COMP. METAB OLIC PANEL creatinine 0.67 mg/dL 0.50-0 .95 normal Not Available [facility] [address] [place] [address], [address], 11/11/2023 12:18:41 11/11/19 24 11/11/2023 COMP. METAB OLIC PANEL BUN/creatini ne ratio 27 (calc ) 10-20 high Not Available [facility] [address] [place] [address], [address], 11/11/2023 12:18:41 11/11/19 24 11/11/2023 COMP. METAB OLIC PANEL sodium 138 mmol/ L 136-14 5 normal Not Available [facility] [address] [place] [address], [address], 11/11/2023 12:18:41 11/11/19 24 11/11/2023 COMP. METAB OLIC PANEL potassium 4.4 mmol/ L 3.4-5. 0 normal Not Available [facility] [address] [place] [address], [address], 11/11/2023 12:18:41 11/11/19 24 11/11/2023 COMP. METAB OLIC PANEL chloride 99 mmol/ L 98-107 normal Not Available [facility] [address] [place] [address], [address], 11/11/2023 12:18:41 11/11/19 24 11/11/2023 COMP. METAB OLIC PANEL carbon dioxide 28 mmol/ L 22-31 normal Not Available [facility] [address] [place] [address], [address], 11/11/2023 12:18:41 11/11/19 24 11/11/2023 COMP. METAB OLIC PANEL anion gap 11 (calc ) 7-25 normal Not Available [facility] [address] [place] [address], [address], 11/11/2023 12:18:41 11/11/19 24 11/11/2023 COMP. METAB OLIC PANEL calcium 9.8 mg/dL 8.6-10 .2 normal Not Available [facility] [address] [place] [address], [address], 11/11/2023 12:18:41 11/11/19 24 11/11/2023 COMP. METAB OLIC PANEL total protein 7.5 g/dL 6.4-8. 3 normal Not Available [facility] [address] [place] [address], [address], 11/11/2023 12:18:41 11/11/19 24 11/11/2023 COMP. METAB OLIC PANEL albumin 4.4 g/dL 3.5-5. 2 normal Not Available [facility] [address] [place] [address], [address], 11/11/2023 12:18:41 11/11/19 24 11/11/2023 COMP. METAB OLIC PANEL globulin 3.1 1.5-4. 5 normal Not Available [facility] [address] [place] [address], [address], 11/11/2023 12:18:41 11/11/19 24 11/11/2023 COMP. METAB OLIC PANEL albumin/glob ulin ratio 1.4 (calc ) 1.1-2. 5 normal Not Available [facility] [address] [place] [address], [address], 11/11/2023 12:18:41 11/11/19 24 11/11/2023 COMP. METAB OLIC PANEL bilirubin, total 0.6 mg/dL 0.1-1. 2 normal Not Available [facility] [address] [place] [address], [address], 11/11/2023 12:18:41 11/11/19 24 11/11/2023 COMP. METAB OLIC PANEL alkaline phosphatase 111 U/L 30-121 normal Not Available [facility] [address] [place] [address], [address], 11/11/2023 12:18:41 11/11/19 24 11/11/2023 COMP. METAB OLIC PANEL AST 18 U/L 0-32 normal Not Available [facility] [address] [place] [address], [address], 11/11/2023 12:18:41 11/11/19 24 11/11/2023 COMP. METAB OLIC PANEL ALT 24 U/L 0-33 normal Not Available [facility] [address] [place] [address], [address], 11/11/2023 12:18:41 11/11/19 24 11/11/2023 COMP. METAB OLIC PANEL GFR 91 >= 60 normal NOT E New calcu latio n for GFR (CKD- EPI 2020) is formu lated witho ut race adjus tment facto rs at the recom menda tion of the [employer] ty of Nephr ology . This calcu latio n has not been valid ated in pregn ant women . For pedia luigi thomase nts refer to https ://carl nunes.o rg/pr ofess ional s/KDO QI/gf r_cal culat orPed Not Available [facility] [address] [facility], [place], [address], 11/11/2023 12:18:41 11/12/19 24 11/12/2023 SURGI SIVA surgical SEE BELOW normal Depar tment of Patho logy Surgi siva Patho logy Repor t NAME: SHAWNA STROUD PATH. :SS-2 04 Copy to: Diagn osis: Right breas t 2 o'javier ck papil colt/ atypi a: Focal minim al atypi siva ducta l hyper plasi a. Rodri ns free of ADH withi n the plane s of secti on. No defin ite resid ual papil colt ident ified . Biops y site with assoc iated fat necro sis, fibro sis, hemos ideri n laden macro phage s and forei gn body giant cells . SOURC E OF SPECI MEN: BREAS T EXCIS IONAL BIOPS Y, RIGHT , 2:00 PAPIL COLT/ ATYPI A CLINI SIVA INFOR MATIO N: N60.9 1 ATYPI SIVA DUCTA L HYPER PLASI A OF RIGHT BREAS T Gross Descr iptio n: Recei melvin in forma noemy label ed with the patie nt's name and desig nated righ t breas t 2 o'javier ck papil colt/ atypi a is an unori ented excis ion of fibro fatty breas t tissu e (3.5 x 2.5 x 2.1 cm). A local izing guide wire is not in place . The speci men is entir jenna inked black and secti oned to revea l a 1.5 x 1.0 x 1.0 cm biops y cavit y which conta ins clott ed blood , a metal radio graph ic clip and a RFID tag. The biops y cavit y is surro unded by focal fat necro sis. The edge of the biops y cavit y is notab le for a 0.5 x 0.5 x 0.5 cm well- circu mscri bed, firm possi ble pink- frank solid nodul e. The nodul e is 0.2 cm from the neare st rodri n. Entir jenna submi tted seque ntial ly in eight casse ttes label ed A1-A8 (poss ible nodul e inclu ded in block s A5-A6 ). COLLE CTION TIME: 8:43 AM TIME INTO FORMA NOEMY: 8:44 AM ISCHE DAVID TIME: 1 minut e TOTAL FIXAT ION TIME: 56 hours 18 minut es Note: The breas t speci men proce ssed meets the fixat ion time stand ards of 6-72 hrs., which have been set by the Ameri can Socie ty of Clini siva Oncol ogy (ASCO ) and the Colle ge of Ameri can Patho logis ts (CAP) , to ensur e appro priat e tissu e quali ty for effec tive ER, [place], Her2 respiratory therapy instructor tor testi ng. SHU 11/12 03:06 PM Micro scopi c Descr iptio n: Secti ons a centr al biops y site with assoc iated surro undin g fat necro sis, fibro sis, hemos ideri n laden macro phage s, and forei gn body giant cells . Focal minim al atypi siva ducta l hyper plasi a is noted . No defin itive resid ual papil colt is ident ified . Rodri ns are free of ADH withi n the secti ons exami dru. KEITH Jones MD Lupe d Out Date: 11/18 10:27 Page 1 of 1 Not Available [facility] [address] [place] [address], [place], [address], 11/18/2023 10:27:38 10/14/19 24 09/14/2023 MAMMO , unila teral , right and US, breas t, right No observ ation record ed. [email or web address] [facility] [address], [place], [address], 10/26/2023 14:07:04 11/11/19 24 11/11/2023 US R brst guide d needl e LOC [place] [address] [place] [address] Patien t Name: SHAWNA bullard : 949 Shaniqua bullard 9 Orderi ng Provid er: ISABEL SILVA EXAM DATE: 2023 EXAM: US R BRST GUIDED NEEDLE LOC INDICA TION: This patien t is 73 years old and is referr ed for tag locali zation of right breast mass at 2:00, 2 cm from the nipple . PROCED URE: After discus sing the risks and benefi ts of the proced ure, answer ing all questi ons and obtain ing signed inform ed consen t, the patien t was positi oned on the ultras ound gurney . The area of the previo us biopsy was locali zed using ultras ound guidan ce. 2% lidoca ine was inject ed for local anesth esia. The visibl e hemato ma was target ed and a tag locali zer was insert ed in the area of concer n. Positi on of the tag locali zer was confir med with ultras ound and post proced ure mammog gladis. There were no compli cation s. The patien t tolera marie the proced ure well and was discha rged in stable condit ion. IMPRES GEOFFREY: Tag locali zation for surger y. Interp reted By: Manuel Mccallum Electr onical ly Signed By: Manuel Mccallum on 024 10:52 AM [facility] [address], [address], 11/11/2023 13:58:50 11/19/19 24 05/30/2021 MAMMO , unila teral , right and US, breas t, right No observ ation record ed. [email or web address] Not Available 2023 13:39:24 05/19/20 24 05/19/2024 MAMMO , diagn ostic , tomos ynthe sis, unila teral , w/ CAD [address] [place] [address] Shaniqua bullard Name: SHAWNA bullard : 949 Age: 73 years Patien t 9 Orderi ng Provid er: MEHRDADAQUILES RINA SILVA EXAM DATE: 2023 EXAM: MG RT DIAG NIALL MAMMOG KARTIK INDICA TION: Atypic al ductal hyperp lasia PROCED URE: Multis lice imagin g of the right breast was perfor med includ ing standa rd views using Hologi c Seleni a Dimens ions tomosy nthesi s equipm ent (3D mammog diana) . 2D images were create d from the 3D datase t using C-View softwa re. Images were evalua marie with the assist ance of Comput er Aided Detect ion (CAD) softwa re. COMPAR ARIELLE: This is compar ed with prior mammog gladis dated , 2022, 2020 FINDIN GS: There are scatte red areas of fibrog landul ar densit y. Previo usly noted tissue marker is no longer presen t. There is no new mass or microc alcifi cation IMPRES GEOFFREY: BI-RAD S catego ry 2, Benign . Recomm end follow -up bilate ral screen ing mammog diana on schedu le COMMEN T: Findin gs and recomm endati ons were discus sed with the patien t. Interp reted By: Abner Ballard MD Electr onical ly Signed By: Abner Ballard MD on 11:53 AM [email or web address] [facility] [address] [place] [address], [place], [address], 05/23/2024 08:43:02 11/22/19 25 11/22/2024 MAMMO , scree pineda, tomos ynthe sis, bilat eral, w/ CAD [facility] [address] [place] [address] ay [facility] [place] [address] Patiedilma t Name: SHAWNA bullard : 949 Age: 74 years Patien t 9 Orderi ng Provid er: NIMCO Daniel EXAM DATE: 2024 EXAM: MG SCREEN ING NIALL MAMMOG KARTIK INDICA TION: Routin e screen ing. Person al histor y of atypic al ductal hyperp lasia in the right breast status post excisi onal biopsy . No person al or family histor y of breast cancer . 4 % lifeti me risk of breast cancer PROCED URE: Multis lice imagin g of both breast s was perfor med in standa rd projec tions using Hologi c Seleni a Dimens ions tomosy nthesi s equipm ent (3D mammog diana) . 2D images were create d from the 3D datase t using C-View softwa re. The study was read with the assist ance of Comput er Aided Detect ion (CAD) softwa re. COMPAR ARIELLE: This was compar ed with previo us mammog gladis dated 024, 024, 2022 DENSIT Y: There are scatte red areas of fibrog landul ar densit y. FINDIN GS:No new mass, suspic ious calcif icatio n or area of eli ectura l distor tion. Stable post surgic al change s presen t in the periar eolar 12:00 positi on of the right breast . IMPRES GEOFFREY: Stable benign findin gs. BI-RAD S Catego ry 2, Benign findin g, routin e follow -up. The patien t has been entere d into an TicketForEvent er system . Result s were mailed or given to the patien t. Interp reted By: Annie angeles MD Electr onical ly Signed By: Annie angeles MD on 025 11:36 AM [facility] [address], [address], 11/23/2024 05:49:27 Result Notes Documentation Provider Name and Address Organization Details Recorded Time Mammo, Diagnostic, Tomosynthesis, Unilateral, W/ Cad : [address] [address] Patient Name: SHAWNA MAO Patient : 1950 Age: 73 years Patient Ordering Provider: ARLYN SILVA EXAM DATE: 05/19/2024 EXAM: MG RT DIAG NIALL MAMMOGRAM INDICATION: Atypical ductal hyperplasia PROCEDURE: Multislice imaging of the right breast was performed including standard views using [employer] tomosynthesis equipment (3D mammography). 2D images were created from the 3D dataset using C-View software. Images were evaluated with the assistance of Computer Aided Detection (CAD) software. COMPARISON: This is compared with prior mammograms dated 10/06/2023, 08/31/2023, 05/30/2021 FINDINGS: There are scattered areas of fibroglandular density. Previously noted tissue marker is no longer present. There is no new mass or microcalcification IMPRESSION: BI-RADS category 2, Benign. Recommend follow-up bilateral screening mammography on schedule COMMENT: Findings and recommendations were discussed with the patient. Interpreted By: Abner Ballard MD N SILVA MD [address] [place] [address], [phone] 05/23/2024 08:43:02 Mammo, Screening, Tomosynthesis, Bilateral, W/ Cad : [address] [address] Patient Name: SHAWNA MAO Patient : 1950 Age: 74 years Patient Ordering Provider: LISA JIANG EXAM DATE: 11/22/2024 EXAM: MG SCREENING NIALL MAMMOGRAM INDICATION: Routine screening. Personal history of atypical ductal hyperplasia in the right breast status post excisional biopsy. No personal or family history of breast cancer. 4 % lifetime risk of breast cancer PROCEDURE: Multislice imaging of both breasts was performed in standard projections using [employer] tomosynthesis equipment (3D mammography). 2D images were created from the 3D dataset using C-View software. The study was read with the assistance of Computer Aided Detection (CAD) software. COMPARISON: This was compared with previous mammograms dated 05/19/2024, 10/06/2023, 09/14/2023 DENSITY: There are scattered areas of fibroglandular density. FINDINGS:No new mass, suspicious calcification or area of architectural distortion. Stable post surgical changes present in the periareolar 12:00 position of the right breast. IMPRESSION: Stable benign findings. BI-RADS Category 2, Benign finding, routine follow-up. The patient has been entered into an automated reminder system. Results were mailed or given to the patient. Interpreted By: Annie Byrne MD JIANG, TARSHA [address] [place] [address], [phone], [facility] 11/22/2024 11:53:03 Problems Name Problem SNOMED Code Status Onset Date Resolution Date Notes Provider Name and Address Organization Details Recorded Time Hypertensiv e disorder [id number] Active 2023 Blanche Gustafson [facility] 4 13:08:02 Atypical ductal hyperplasia of left breast 0005791471615 9104 Active 2023 ARLYN SILVA MD [facility] [place], [address], [facility] 4 14:07:56 Atypical ductal hyperplasia of right breast [id number] 9100 Active 2023 ARLYN SILVA MD [address] [place] [address], [address], [facility] 4 14:08:08 Problem Notes None recorded. Procedures Surgical History Date Name Laterality Status Provider Name and Address Organization Details Recorded Time 11/12/19 24 [facility] 14:10:28 09/14/20 23 Date of Last Mammogram completed Blanche [facility] 10/25/2023 13:11:04 arthroplasty completed [facility] 10/25/2023 13:10:21 Imaging Results None recorded. Procedure Notes None recorded. Medical Equipment None Reported. Allergies No known drug allergies Medications Name Sig Start Date Stop Date Status Note LastModified by Organization Details LastModified Time celecoxib 200 mg capsule TAKE ONE CAPSULE BY MOUTH EVERY DAY active Not Available Not Available No t Available amoxicillin 500 mg capsule TAKE FOUR CAPSULES BY MOUTH 1 HOUR PRIOR TO DENTAL APPOINTME NT active Not Available Not Available No t Available tizanidine 2 mg tablet TAKE ONE TABLET BY MOUTH THREE TIMES DAILY NEEDED MAY CAUSE DROWSINES S active Not Available Not Available No t Available tizanidine 4 mg tablet TAKE ONE TABLET BY MOUTH THREE TIMES DAILY NEEDED MAY CAUSE DROWSINES S active Not Available Not Available No t Available amlodipine 5 mg tablet TAKE ONE TABLET BY MOUTH EVERY DAY NEEDED active Not Available Not Available No t Available allopurinol 100 mg tablet TAKE ONE TABLET BY MOUTH EVERY DAY active Not Available Not Available No t Available alprazolam 0.5 mg tablet TAKE 1 OR 2 TABLET(S) BY MOUTH TWICE DAILY NEEDED MAY CAUSE DROWSINES S active Not Available Not Available No t Available dexamethaso ne 4 mg tablet TAKE ONE TABLET BY MOUTH TWICE DAILY FOR 5 DAYS active Not Available Not Available No t Available gabapentin 100 mg capsule TAKE ONE CAPSULE BY MOUTH THREE TIMES DAILY MAY CAUSE DROWSINES S active Not Available Not Available No t Available colchicine 0.6 mg tablet TAKE ONE TABLET BY MOUTH TWICE DAILY active Not Available Not Available No t Available losartan 100 mg tablet TAKE ONE TABLET BY MOUTH ONCE DAILY active patient is no longer taking medicati on. Not Available Not Available Not Available Vitals Date Recorded Body height Body mass index (BMI) Body weight Heart rate Oxygen saturation Oxygen saturation in Arterial blood by Pulse oximetry Systolic blood pressure Diastolic blood pressure Provider Name and Address Organization Details Last Updated DateTime 4 162.56 cm 37.8 kg/m2 38700.3 2 g 82 /min 94 % 94 % 136 mm[Hg] 86 mm[Hg] [facility] 4 13:37:41 Date Recorded Body height Body mass index (BMI) Body weight Heart rate Oxygen saturation Oxygen saturation in Arterial blood by Pulse oximetry Systolic blood pressure Diastolic blood pressure Provider Name and Address Organization Details Last Updated DateTime 4 162.56 cm 37.8 kg/m2 74187.3 2 g 67 /min 97 % 97 % 162 mm[Hg] 82 mm[Hg] [facility] 4 14:18:11 Date Recorded Body height Body mass index (BMI) Body weight Heart rate Oxygen saturation Oxygen saturation in Arterial blood by Pulse oximetry Systolic blood pressure Diastolic blood pressure Provider Name and Address Organization Details Last Updated DateTime 5 162.56 cm 36.6 kg/m2 97194.2 7 g 71 /min 98 % 98 % 132 mm[Hg] 88 mm[Hg] Latoya Nails [facility] 5 11:24:37 Date Recorded Body height Body mass index (BMI) Body weight Heart rate Oxygen saturation Oxygen saturation in Arterial blood by Pulse oximetry Systolic blood pressure Diastolic blood pressure Provider Name and Address Organization Details Last Updated DateTime 4 162.56 cm 37 kg/m2 93663.4 6 g 61 /min 96 % 96 % 128 mm[Hg] 84 mm[Hg] Latoya Nails [facility] 4 11:54:05 Social History Question Answer Notes LastModified by [employer] Details LastModified Time Tobacco Smoking Status Former Smoker Blanceh Gustafson [facility] 10/25/2023 13:10:01 When Did You Quit Smoking? 16+yearssinc elastcigaret te [email or web address] Information not available 10/25/2023 What Was The Date Of Your Most Recent Tobacco Screening? 11/18/2023 [email or web address] Information not available 11/18/2023 Has Tobacco Cessation Counseling Been Provided? No [email or web address] Information not available 10/25/2023 Sex: Unknown Functional Status Question Answer Note LastModified by [employer] Details LastModified Time Do you use any illicit or recreational drugs? No [email or web address] Information not available 10/25/2023 Do you or have you ever used any other forms of tobacco or nicotine? No [email or web address] Information not available 10/25/2023 What is your level of alcohol consumption? Occasional [email or web address] Information not available 10/25/2023 Are you currently employed? No [email or web address] Information not available 10/25/2023 Mental Status None recorded. Family History Relationship Description Onset Age of this Age Resolved Age Notes LastModified by Organization Details LastModified Time Father Aneurysm AORTA ANEYRY SM [email or web address] Not available 10/25/2023 13:09:01 Medical History Condition Response Hypertension Y Gynecological History Statement/Question Response # of Pregnancies -2 Infertility medication use? Y Age at Menarche 12 Date of Last Mammogram 09/14/2023 Hormone Replacement Therapy N Obstetrics History GPAL:G 0 P 0 0 0 0 Past Encounters Encounter ID Performer Location Encounter Start Date Encounter Closed Date Diagnosis/Indication Diagnosis SNOMED-CT Code Diagnosis ICD10 Code Diagnosis Note [id number] ARLYN SILVA MD BREAST SURGERY [address] [place] [address] 10/25/2023 12:55:54 10/25/2023 14:31:07 Atypical ductal hyperplasia of right breast [id number] N60.91 Patient has a small mass in the right breast was biopsied and returned as a papilloma with ADH. I discussed with her what this meant and then I recommende d excision of that papilloma. As this is not palpable I recommende d localizer placement. I described details and risk of surgery and she would like to proceed. We will get her scheduled for November 12 at the [facility]. [id number] ARLYN SILVA MD SURGERY SCHEDULE [address] [place] [id number] 11/12/2023 06:43:03 11/12/2023 06:44:20 Atypical ductal hyperplasia of right breast [id number] N60.91 Patient has a small mass in the right breast was biopsied and returned as a papilloma with ADH. I discussed with her what this meant and then I recommende d excision of that papilloma. As this is not palpable I recommende d localizer placement. I described details and risk of surgery and she would like to proceed. We will get her scheduled for November 12 at the [facility]. [id number] ARLYN SILVA MD BREAST SURGERY [facility] [address] [place] [id number] 11/18/2023 14:04:09 11/18/2023 15:00:22 Atypical ductal hyperplasia of right breast [id number] N60.91 Patient is status post excision of a papilloma and atypical ductal hyperplasi a with only a small focus of ADH seen and nothing at the margins. I offered to place patient and our high risk clinic and follow her more closely with imaging but she would like to continue her imaging at [facility] and she will come back as needed. She is healing very nicely. [id number] [place] [address] [place] [id number] 05/19/2024 11:09:52 05/19/2024 13:13:04 Atypical ductal hyperplasia of right breast [id number] N60.91 Screening for malignant neoplasm of breast 625400211 Z12.39 At [facility] for malignant neoplasm of breast 1461065723 93760 Z91.89 NCCN Guidelines for patients over 20% lifetime risk for breast cancer:Mon thly self breast exam starting at age 18.Clinica l breast exam every 6 months.Maliha ual mammogram starting at age 40, or 10 years prior to the earliest diagnosis in the family.Maliha ual screening breast MRI starting at age 40, or 10 years prior to the earliest diagnosis in the family.Con sideration of chemoproph ylaxis for breast cancer risk reduction (tamoxifen , Evista, etc.). Patient and I reviewed high risk guidelines . Due to her age and negative family history, she is not interested in any additional high risk screenings or preventati ve medication s at this time. Declines MRI and chemoproph ylaxis. She will continue routine screening mammograms once yearly. Last bilateral imaging in 08/2023 at [facility]. Option to continue mammograms there vs here discussed. She would like to transfer imaging here. We will plan high risk clinical breast exams same day as mammograms . Order placed as below. If negative in 10/2024, go to once a year. She v/u and agrees with plan. She is welcome to call at anytime if new problems arise. [id number] LISA JIANG APRN BREAST SURGERY [address] [place] [address] 11/22/2024 10:35:36 11/22/2024 13:54:56 Atypical ductal hyperplasia of right breast [id number] N60.91 At [facility] for malignant neoplasm of breast [id number] 37190 Z91.89 NCCN Guidelines for patients over 20% lifetime risk for breast cancer:Mon thly self breast exam starting at age 18.Clinica l breast exam every 6 months.Maliha ual mammogram starting at age 40, or 10 years prior to the earliest diagnosis in the family.Maliha ual screening breast MRI starting at age 40, or 10 years prior to the earliest diagnosis in the family.Con sideration of chemoproph ylaxis for breast cancer risk reduction (tamoxifen , Evista, etc.). Due to her age and negative family history, she is not interested in any additional high risk screenings or preventati ve medication s at this time. Declines MRI and chemoproph ylaxis. Screening mammogram and CBE today negative. Continue yearly screening mammograms with same day clinical breast exams. Orders placed for next year as below, to be scheduled closer to that time. She is welcome to call at anytime if new problems arise. Screening for malignant neoplasm of breast [id number] Z12.39 Health Concerns Section Related Observation LastModified by Organization Detai ls LastModified Time None Recorded Concern Status LastModified by Organization Details LastModified Time None Recorded Advance Directives Directive None Recorded Payers Insurance Date Sequence Insurance Name Policy Number Policy Deutsch Covered Member ID Deutsch Member ID Guarantor Name 11/12/2023 2 [employer] (MEDICARE) Shawna Mao [id number] Shawna Mao 11/22/2024 1 [facility] (MEDICARE REPLACEMENT/A DVANTAGE - PPO) [id number] Shawna Mao [id number] Shawna Mao Notes Date Note Type Note Provider Name and Address Organization Details Recorded Time 10/25/2023 text/html Patient is a 73-year-old who had an abnormal mammogram in August at [facility] and [facility]. There is a possible mass that was 4 mm in the middle third of the right central breast seen on her screening mammogram. Ultrasound revealed a 4 mm mass at 2:00 2 cm from the nipple. Ultrasound biopsy was recommended. Patient underwent biopsy on October 06. Pathology revealed Breast cancer risk factors:Nulliparous. Age of menarche 12. No prior breast biopsies.No family history of breast or ovarian cancer. ARLYN SILVA MD [address] [place] [address], [phone], [facility] 10/25/2023 14:09:01 11/18/2023 text/html Interval history 11/18/2023: Patient is status post excision of an area of atypia and papilloma last week. She had some soreness but overall is doing well. Pathology revealed a focal area of atypical ductal hyperplasia but nothing at the margins and no residual papilloma was seen. 3: Patient is a 73-year-old who had an abnormal mammogram in August at [facility]. There is a possible mass that was 4 mm in the middle third of the right central breast seen on her screening mammogram. Ultrasound revealed a 4 mm mass at 2:00 2 cm from the nipple. Ultrasound biopsy was recommended. Patient underwent biopsy on October 06. Pathology revealed Breast cancer risk factors:Nulliparous. Age of menarche 12. No prior breast biopsies.No family history of breast or ovarian cancer. ARLYN SILVA MD [address] [place], [address], [facility] 11/18/2023 14:59:01 05/19/2024 text/html Interval history 05/19/2024: Patient completed follow-up right diagnostic mammogram this morning, resulted BiRADS 2. No new mass or microcalcifications. She is recommended to proceed forward with routine screening. She is now considered high risk due to her ADH diagnosis. Family history is negative for breast cancer. She denies any new or concerning findings on home self breast exams. Risk Assessment:ADH/28.64% by [facility] self breast exam: yesMammogram: diagnostic right mammogram 05/19/2024 results: BiRADS 2Last bilateral mammogram 08/2023 at [facility] Breast MRI: NEVER Interval history 11/18/2023: Patient is status post excision of an area of atypia and papilloma last week. She had some soreness but overall is doing well. Pathology revealed a focal area of atypical ductal hyperplasia but nothing at the margins and no residual papilloma was seen. 3: Patient is a 73-year-old who had an abnormal mammogram in August at [facility] and [facility]. There is a possible mass that was 4 mm in the middle third of the right central breast seen on her screening mammogram. Ultrasound revealed a 4 mm mass at 2:00 2 cm from the nipple. Ultrasound biopsy was recommended. Patient underwent biopsy on October 06. Pathology revealed Breast cancer risk factors:Nulliparous. Age of menarche 12. No prior breast biopsies.No family history of breast or ovarian cancer. LISA JIANG, TEST ADMINISTRATOR [address] [place], [address], [facility] 05/19/2024 13:06:45 11/22/2024 text/html Interval history 11/22/2024: Patient here for ongoing high risk care. She completed her bilateral screening mammogram this morning, resulted BiRADS 2. She denies any new breast concerns. She is having trouble with left sciatica and is scheduled to see a specialist in [facility] tomorrow. Risk Assessment:ADH/28.64% by [facility] self breast exam: yesMammogram: diagnostic right mammogram 05/19/2024 results: BiRADS 2Last bilateral mammogram 08/2023 at [facility] Breast MRI: NEVER Interval history 05/19/2024: Patient completed follow-up right diagnostic mammogram this morning, resulted BiRADS 2. No new mass or microcalcifications. She is recommended to proceed forward with routine screening. She is now considered high risk due to her ADH diagnosis. Family history is negative for breast cancer. She denies any new or concerning findings on home self breast exams. Interval history 11/18/2023: Patient is status post excision of an area of atypia and papilloma last week. She had some soreness but overall is doing well. Pathology revealed a focal area of atypical ductal hyperplasia but nothing at the margins and no residual papilloma was seen. 3: Patient is a 73-year-old who had an abnormal mammogram in August at [facility] and [facility]. There is a possible mass that was 4 mm in the middle third of the right central breast seen on her screening mammogram. Ultrasound revealed a 4 mm mass at 2:00 2 cm from the nipple. Ultrasound biopsy was recommended. Patient underwent biopsy on October 06. Pathology revealed Breast cancer risk factors:Nulliparous. Age of menarche 12. No prior breast biopsies.No family history of breast or ovarian cancer. LISA JIANG, TEST ADMINISTRATOR [address] [place], [address], [facility] 11/22/2024 11:57:17 OBGyn Episode No OBEpisode recorded.
--- OUTSIDE RECORDS SUMMARY | 2025-03-12 13:26 | XMS_ITS | Patient Health Record ---
Author Organization [facility] Address [address] [place] [id number] Care Team Providers Care Maintenance Pipefitter Name Role Phone Sergio Giron Primary Care Provider Allergies No Known Allergies Results Component Value Reference Range Notes MRI : Spine, Lumbosacral, wi thout contrast Reviewed date:05/04/2024 10:35:38 AM Interpretation:multilevel DDD and spondylosis Performing Lab: Notes/Report: multilevel DDD and spondylosis GISELL Reviewed date:04/18/2024 09:15:56 AM Interpretation:satisfactory Performing Lab: Notes/Report: satisfactory TEN-UTI panel Reviewed date:01/01/2025 04:54:22 PM Interpretation:E. Coli Performing Lab: Notes/Report: E. Coli Urinalysis - Inhouse Reviewed date:12/27/2024 05:32:54 PM Interpretation:Abnormal Performing Lab: Notes/Report: Abnormal Color/Clarity yellow/clear Leuk 1+ Nitrite Pos Urobili 3.2 Protein Neg pH 5.5 Blood Neg Sp. Gr. 1.020 Ketone Neg Bili Neg Gluc Neg P-Microalbumin/Creatinine, R andom Urine Sample Reviewed date:08/08/2024 08:58:03 AM Interpretation:Normal Performing Lab: Notes/Report: Test performed by [employer], [facility] [address] [place] [address] , [address], [place] [address] Tino Richard MD, [employer]ts Assembler CLIA: [id number] Albumin/Creatinine Ratio, Urine 11 0-30 ug/mg Microalbumin, Urine, Random 1.7 Creatinine, Urine 153.8 P-TSH reflex to FT4 Reviewed date:08/08/2024 08:58:03 AM Interpretation:Normal Performing Lab: Notes/Report: Test performed by [facility] [address] [place] [address] Tino Richard MD, [employer] Assembler CLIA: [id number] TSH reflex to FT4 2.13 0.43-5.25 mU/L P-Lipid Panel Reviewed date:08/08/2024 08:58:03 AM Interpretation:chol 246, non-hdl 145, ldl 130 Performing Lab: Notes/Report: Test performed by [email or web address] [address] [place] [address] [place] [address] Tino Richard MD, [employer] Assembler CLIA: [id number] Cholesterol 246 <200 mg/dL Triglycerides 77 <150 mg/dL HDL Cholesterol 101 >39 mg/dL Cholesterol / HDL Ratio 2.44 0.00-4.44 Ratio Non-HDL Cholesterol 145 <130 mg/dL LDL Cholesterol (Calculation) 130 <130 mg/dL LDL Cholesterol Levels* Less than 100 mg/dL Optimal 100 to 129 mg/dL Near Optimal/ Above Optimal 130 to 159 mg/dL Borderline High 160 to 189 mg/dL High 190 mg/dL and above Very High * Categories as recommended by the 2004 ATPIII guidelines LDL/HDL Ratio 1.3 <3.3 Ratio LDL Cholesterol Patient History Test Date: 08/07/2024 LDL Results: 130 Units: mg/dL % Change: - P-Comprehensive Metabolic Pa dixon (CMP) Reviewed date:08/08/2024 08:58:03 AM Interpretation:Normal Performing Lab: Notes/Report: Test performed by [employer], [facility] , [address], [place] [address] Tino Richard MD, [employer] Assembler CLIA: [id number] Sodium 140 135-145 mmol/L Potassium 4.5 3.5-5.3 mmol/L Chloride 103 97-108 mmol/L CO2 26 22-32 mmol/L Glucose 92 65-99 mg/dL BUN 19 8-23 mg/dL Creatinine 0.70 0.50-1.00 mg/dL Calcium 9.5 8.6-10.4 mg/dL eGFR by Creatinine 90 >59 mL/min/1.73m2 Protein 6.8 6.0-8.3 g/dL Albumin 4.2 3.5-5.3 g/dL Alkaline Phosphatase 96 35-121 IU/L ALT (SGPT) 20 <5-47 IU/L AST (SGOT) 16 <5-40 IU/L Bilirubin, Total 0.7 <0.2-1.2 mg/dL A/G Ratio 1.6 1.1-2.5 X ray : Spine, lumbosacral Reviewed date:04/06/2024 09:02:58 AM Interpretation:moderate degenerative change Performing Lab: Notes/Report: moderate degenerative change X ray : Spine, lumbosacral Reviewed date:04/06/2024 09:02:58 AM Interpretation:moderate degenerative change Performing Lab: Notes/Report: moderate degenerative change EKG Reviewed date:01/19/2025 09:01:27 AM Interpretation: Performing Lab: Notes/Report: Medications Medication SIG (Take, Route, Frequency, Duration) Notes Start Date End Date Status Baclofen 5 MG 1 tablet as needed Orally Once a day for 30 day(s) Active Wegovy 0.5 MG/0.5ML 0.5 mL Subcutaneous once a week for 30 days Pt provided samples of starting dose 03/07/2025 Active Celecoxib 200 mg 1 capsule with food Orally once daily for 90 days Active amLODIPine Besylate 5 MG 1 tablet Orally Once a day as needed 04/27/2023 Active Immunizations Vaccine Route Administration Date Status Comme nts COVID 19 Moderna Unknown 11/06/2020 Administered COVID 19 Moderna Unknown 12/04/2020 Administered COVID 19 Moderna Unknown 09/10/2021 Administered Problems Problem Type SNOMED Code ICD Code Onset Dates Problem Status W/U Status Risk Notes Problem Hyperlipidemia N OS (272.4) Active confirmed Problem Osteopenia (219344761) Osteopenia (M85.80) Active confirmed Problem 604801862 Piriformis syndr ome of left side (G57.02) Active confirmed Problem 689438518 Lumbar facet arthropathy (M47.816) Active confirmed Problem 29609095 Other chronic pa in (G89.29) Active confirmed Problem 149260443 Lumbago with sci atica, left side (M54.42) Active confirmed Problem 58188566 Acute cystitis w ithout hematuria (N30.00) Active confirmed Problem 55536607 Urge incontinenc e (N39.41) Active confirmed Problem 26623705 Other chronic pa in (G89.29) Active confirmed Problem 453255384 BMI 36.0-36.9,ad ult (Z68.36) Active confirmed Problem 03358415 Right sided scia magda (M54.31) Active confirmed Problem 977836351253922 Herniated intervertebral disc of lumbar spine (M51.26) Active confirmed Problem 911400549 Acute bilateral low back pain with left-sided sciatica (M54.42) Active confirmed Problem 20757732 DDD (degenerativ e disc disease), lumbar (M51.36) Active confirmed Problem 221340816 Pure hypercholesterolemia (E78.00) Active confirmed Problem 0371378616790007 Arthritis of ri ght hip (M16.11) Active confirmed Problem 619240572 Non morbid obesi ty (E66.9) Active confirmed Problem 38474337 Spinal stenosis of lumbar region without neurogenic claudication (M48.061) Active confirmed Problem 343699277 Chronic gout of foot, unspecified cause, 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) Active confirmed Problem 151601735 Abnormality of r ight breast on screening mammogram (R92.8) Active confirmed Problem 77699010 Primary hyperten josee (I10) Active confirmed Problem 98384037 Arthritis pain, hip (M16.10) Active confirmed Problem 131019053 Arthritis of jenniffer nt of toe (M19.079) Active confirmed Problem 122876430 Atypical ductal hyperplasia of right breast (N60.91) Active confirmed Vital Signs Heart Rate 72 /min 02/21/2025 Blood pressure diastolic 80 mm Hg 02/21/2025 Height 63 in 02/21/2025 Blood pressure systolic 130 mm Hg 02/21/2025 Weight 206 lbs 02/21/2025 BMI 36.49 kg/m2 02/21/2025 Encounters Encounter Location Date Provider Diagnosis [facility] [address] [facility] [address] [place], [place] [id number] 03/21/2024 Sergio Park Piriformis syndrome of left side G57.02 [facility] [address] [place], [place] [id number] 03/29/2024 Sergio Park Acute bilateral low back pain with left-sided sciatica M54.42 [facility] [address] [place], [place] [id number] 05/01/2024 Sergio Park Acute bilateral low back pain with left-sided sciatica M54.42 ; DDD (degenerative disc disease), lumbar M51.36 and Lumbar facet arthropathy M47.816 [facility] [address] [place], [place] [id number] 05/09/2024 Sergio Park Acute bilateral low back pain with left-sided sciatica M54.42 ; DDD (degenerative disc disease), lumbar M51.36 ; Lumbar facet arthropathy M47.816 and Herniated intervertebral disc of lumbar spine M51.26 [facility] [address] [place], [place] [id number] 06/29/2024 Sergio Park Lumbago with sciatic a, left side M54.42 [facility] [address] [place], [place] [id number] 08/07/2024 Sergio Park Lumbago with sciatic a, left side M54.42 ; Other chronic pain G89.29 ; Lumbar facet arthropathy M47.816 ; Herniated intervertebral disc of lumbar spine M51.26 ; Degeneration of intervertebral disc of lumbar region with discogenic back pain and lower extremity pain M51.362 ; Primary hypertension I10 and Pure hypercholesterolemia E78.00 [facility] [address] [place], [place] [id number] 12/25/2024 Sergio Park Pre-op exam Z01.818 ; Lumbago with sciatica, left side M54.42 ; Lumbar facet arthropathy M47.816 ; Herniated intervertebral disc of lumbar spine M51.26 ; Spinal stenosis of lumbar region without neurogenic claudication M48.061 and Primary hypertension I10 [facility] [address] [place], [place] [id number] 12/27/2024 Sergio Park Acute UTI N39.0 [facility] [address] [facility] [address] [place], [place] [id number] 02/02/2025 Sergio Park Primary hypertension I10 [facility] [address] [facility] [address] [place] [id number] 02/21/2025 Sergio Park Lumbago with sciatic a, left side M54.42 ; Non morbid obesity E66.9 and BMI 36.0-36.9,adult Z68.36 [facility] [address] [place], [place] [id number] 03/07/2025 Sergio Park [facility] [address] [facility] [address] [place] [id number] 03/23/2024 Sergio Park [facility] [address] [place], [place] [id number] 04/03/2024 Sergio Park Acute bilateral low back pain with left-sided sciatica M54.42 ; DDD (degenerative disc disease), lumbar M51.36 and Lumbar facet arthropathy M47.816 [facility] [address] [place], [place] [id number] 04/18/2024 Sergio Park [facility] [address] [facility] [address] [place] [id number] 05/04/2024 Sergio Park [facility] [address] [place] [id number] 07/03/2024 Sergio Park [facility] [address] [place] [id number] 08/08/2024 Sergio Park [facility] [address] [place] [id number] 09/08/2024 Sergio Park [facility] [address] [place] [id number] 10/23/2024 Sergio Park Lumbago with sciatic a, left side M54.42 ; Herniated intervertebral disc of lumbar spine M51.26 ; Lumbar facet arthropathy M47.816 and Spinal stenosis of lumbar region without neurogenic claudication M48.061 [facility] [address] [place] [id number] 10/27/2024 Sergio Park [facility] [address] [place] [id number] 10/30/2024 Sergio Park Primary hypertension I10 [facility] [address] [place] [id number] 10/31/2024 Sergio Park [facility] [address] [place] [id number] 11/23/2024 Sergio Park [facility] [address] [place], [place] [id number] 03/01/2025 Sergio Park Screening for osteop orosis Z13.820 [facility] [address] [place], [place] [id number] 03/07/2025 Sergio Park Non morbid obesity E 66.9 Assessments Encounter Date Diagnosis (ICD Code) Assessment Notes Treatment Notes Treatment Clinical Notes Section Notes 03/21/2024 Piriformis syndrome of left side (ICD-10 - G57.02) Home exercise program provided to patient 03/29/2024 Acute bilateral low back pain with left-sided sciatica (ICD-10 - M54.42) 05/01/2024 Acute bilateral low back pain with left-sided sciatica (ICD-10 - M54.42) Patient to have MRI of L-spine in 2 days 05/01/2024 DDD (degenerative di sc disease), lumbar (ICD-10 - M51.36) 05/09/2024 Acute bilateral low back pain with left-sided sciatica (ICD-10 - M54.42) 05/09/2024 DDD (degenerative di sc disease), lumbar (ICD-10 - M51.36) 06/29/2024 Lumbago with sciatic a, left side (ICD-10 - M54.42) 08/07/2024 Lumbago with sciatic a, left side (ICD-10 - M54.42) 08/07/2024 Other chronic pain (ICD-10 - G89.29) Patient has taken numerous medications, been to physical therapy and has been seen by pain management and had multiple procedures and injections 04/03/2024 Acute bilateral low back pain with left-sided sciatica (ICD-10 - M54.42) 10/23/2024 Lumbago with sciatic a, left side (ICD-10 - M54.42) 10/23/2024 Herniated interverte bral disc of lumbar spine (ICD-10 - M51.26) 10/30/2024 Primary hypertension (ICD-10 - I10) 12/25/2024 Pre-op exam (ICD-10 - Z01.818) PATIENT IS OF ACCEPTABLE RISK FOR PROPOSED LUMBAR SPINE SURGERY 12/25/2024 Lumbago with sciatic a, left side (ICD-10 - M54.42) 12/27/2024 Acute UTI (ICD-10 - N39.0) 02/02/2025 Primary hypertension (ICD-10 - I10) 02/21/2025 Lumbago with sciatic a, left side (ICD-10 - M54.42) Patient will likely follow up with pain management to discuss further treatment 02/21/2025 Non morbid obesity (ICD-10 - E66.9) 03/01/2025 Screening for osteoporosis (ICD-10 - Z13.820) 03/07/2025 Non morbid obesity (ICD-10 - E66.9) 10/23/2024 Lumbar facet arthrop athy (ICD-10 - M47.816) 02/21/2025 BMI 36.0-36.9,adult (ICD-10 - Z68.36) 12/25/2024 Lumbar facet arthrop athy (ICD-10 - M47.816) 04/03/2024 DDD (degenerative di sc disease), lumbar (ICD-10 - M51.36) 05/01/2024 Lumbar facet arthrop athy (ICD-10 - M47.816) 08/07/2024 Lumbar facet arthrop athy (ICD-10 - M47.816) 05/09/2024 Lumbar facet arthrop athy (ICD-10 - M47.816) 05/09/2024 Herniated interverte bral disc of lumbar spine (ICD-10 - M51.26) Patient has an appt. with pain management in 2 weeks 04/03/2024 Lumbar facet arthrop athy (ICD-10 - M47.816) 08/07/2024 Herniated interverte bral disc of lumbar spine (ICD-10 - M51.26) 10/23/2024 Spinal stenosis of lumbar region without neurogenic claudication (ICD-10 - M48.061) 12/25/2024 Herniated interverte bral disc of lumbar spine (ICD-10 - M51.26) 12/25/2024 Spinal stenosis of lumbar region without neurogenic claudication (ICD-10 - M48.061) 08/07/2024 Degeneration of intervertebral disc of lumbar region with discogenic back pain and lower extremity pain (ICD-10 - M51.362) 08/07/2024 Primary hypertension (ICD-10 - I10) 12/25/2024 Primary hypertension (ICD-10 - I10) 08/07/2024 Pure hypercholesterolemia (ICD-10 - E78.00) Plan Of Treatment Pending Test Test Name Order Date Bone density 03/01/2025 H-CBC 12/25/2024 H-BMP 12/25/2024 Next Appt Details Provider Name:Sergio stafford, 08/06/2025 09:00:00 AM, [address], [place], [id number], Insurance Providers Payer Name Payer Address Payer Phone Subscriber Number Group Number Insured Name Patient Relationship to Insured Coverage Start Date Coverage End Date [employer]ARE [address] [address] [place], [place] [id number] ALIZA WATTERS Self - patient is the insured Medications Administered Medication Instructions Date of Administration Dosage Notes Dexamethasone 12/18/2008 1 mL Medical (General) History Medical History History ICD Code Hyperlipidemia Sciatica PARTS CLASSIFIER - Severo Arevalo Hypertension Lumbar facet arthropathy Lumbar Disc Disease Surgical History Surgery Date(Month/Year) Lumbar Laminectomy, Mesial Facetectomy L 3-L4, L4-L5, Left 01/10/2025 LT Hip Replacement Hospitalization History Reason Date(Month/Year)
== END 2025-03-12 23:59 | disposition home or self-care (01) ==
LOC: RAD 13:22
PROVIDERS: PCP Family Medicine; Visit Provider Family Medicine
DX: M85.832 Other specified disorders of bone density and structure, left forearm (principal); Z13.820 Encounter for screening for osteoporosis
CPT/HCPCS: 77080

== ENCOUNTER 2025-03-19 11:00 | Outpatient (RCR) | payer MEDICARE, SELFPAY | END 2025-03-19 23:59 | disposition home or self-care (01) | LOC: PT 11:00 | PROVIDERS: PCP Family Medicine; Visit Provider Nurse Practitioner Acute Care | DX: Z48.811 Encounter for surgical aftercare following surgery on the nervous system (principal) | CPT/HCPCS: 97110; 97140; 97535 ==

== ENCOUNTER 2025-04-05 09:00 | Outpatient (RCR) | payer MEDICARE, SELFPAY | END 2025-04-05 23:59 | disposition home or self-care (01) | LOC: PT 09:00 | PROVIDERS: PCP Family Medicine; Visit Provider Nurse Practitioner Acute Care | DX: Z48.811 Encounter for surgical aftercare following surgery on the nervous system (principal) | CPT/HCPCS: 97014; 97110; 97140; G0283 ==

== ENCOUNTER 2025-04-12 07:41 | Outpatient (CLI) | payer MEDICARE, SELFPAY ==
--- OUTSIDE RECORDS SUMMARY | 2025-02-21 07:45 | XMS_ITS ---
Author Organization Carlos Address 1210 [facility] [address] [place] [phone] Care Team Providers Care String Winding Machine Operator Name Role Phone Sergio Giron Primary Care [...] Problem Status W/U Status Risk Notes Problem BMI 36.0-36.9,ad ult (Z68.36) Active confirmed Vital Signs Blood pressure systolic 130 mm Hg 02/22/20 25 Blood pressure diastolic 80 mm Hg 025 Heart Rate 72 /min 02/21/2025 Height 63 in 02/21/2025 Weight 206 lbs 02/21/2025 BMI 36.49 kg/m2 02/21/2025 Encounters Encounter Location Date Provider Diagnosis Jennifer [facility] 36 [facility] [address]C [place] Natarajan [id number] 02/21/2025 Sergio Giron Lumbago with sciatic a, [...] repo rt progress, Reason: Provider Name:Sergio Olmedo ry, 08/06/2025 09:00:00 AM, 1210 [place] [facility] [address], [address] , [place], [place], [phone], Progress Notes * ALIZA MAOEDOB:0 1950 (74 yo F)Acc No.[id number]:02/21/2025 Progress Notes Patient: ALIZA STOCKTON Provider: Russ Giron M.D. :1950 A ge:74 Y S ex:Female Date:02/21/2025 Address:[address] [place] [address], [place], [place] Subjective: * Chief Complaints: * 1 . [...] urine. 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 [...] morbid obesity - E66.9 3 . B OR 36.0-36.9,adult - Z68.36 Plan: * Treatment: 2. [...] * Images: Billing Information: * Visit Code: 00757 Office Visit, Est Pt., Level 3. * Procedure Codes: G2211 Complex e/m visit add on. G8752 MOST RECENT SYSTOLIC BP < 140MM HG. G8754 MOST RECENT DIASTOLIC BP < 90MM HG. * Electronic signature of Tessa Giron MD on 04/12/2025 at 07:44 AM EDT Sign off status: Pending * Provider: Russ Giron M.D. Date: 0 02/21/2025 Generated for Cyrus viera/Annabel/Jack on: 0 04/12/2025 07:44 AM EDT History and Physical Notes * HPI [...]
--- OUTSIDE RECORDS SUMMARY | 2025-03-01 07:05 | XMS_ITS ---
Author Organization Carlos Address 1210 [facility] 36 [facility] [address] [place] [id number] Care Team Providers Care Motorcycle Fabricator Name Role Phone Sergio Giron Primary Care Provider [phone] Results Component Value Reference Range Notes Bone density Reviewed date:04/11/2025 06:16:02 PM Interpretation:osteopenia of forearm Performing Lab: Notes/Report: osteopenia of forearm REASON FOR VISIT due for screening Encounters Encounter Location Date Provider Diagnosis MARISOL-Rosa Isela 1210 [facility] 36 [facility] [address] [place] [id number] 03/01/2025 Sergio Giron Screening for osteoporosis Z13.820 Assessments Encounter Date Diagnosis (ICD Code) Assessment Notes Treatment Notes Treatment Clinical Notes Section Notes 03/01/2025 Screening for osteoporosis (ICD-10 - Z13.820) Plan Of Treatment Next Appt Details Provider Name:Sergio Olmedo ry, 08/06/2025 09:00:00 AM, 1210 [facility] 36 [facility], [address], [place], [id number], Progress Notes * ALIZA MAOEDOB:0 1950 (74 yo F)Acc No.[id number]:03/01/2025 Patient: ALIZA STOCKTON :1950 A ge:74 Y S ex:Female Address:[address] [place] [address] [address] , [place] [address] Subjective: * Chief Complaints: * D ue for screening * Medical History: * Surgical History: * Hospitalization/Major Diagno stic Procedure: * Medications: Objective: * Vitals: * Physical Examination: Assessment: * Assessment: 1. S creening for osteoporosis - Z13.820 (Primary) Plan: * Treatment: * Procedure Codes: * true * Date: Generated for Cyrus viera/Annabel/Jack on: 0 04/12/2025 07:44 AM EDT
--- OUTSIDE RECORDS SUMMARY | 2025-04-09 05:00 | XMS_ITS ---
Author Organization [facility] Address [address] [facility] [address] [place] [phone] Care Team Providers Care Retail Performance Coach Name Role Phone Sergio Giron Primary Care [...] daily; Duration: 90 days Active Vital Signs Blood pressure systolic 142 mm Hg 04/09/20 25 Blood pressure diastolic 80 mm Hg 025 Heart Rate 70 /min 04/09/2025 Height 63 in 04/09/2025 Weight 204 lbs 04/09/2025 BMI 36.13 kg/m2 04/09/2025 Encounters Encounter Location Date Provider Diagnosis [facility] [address] [facility] [address] [place] [phone] 04/09/2025 Sergio Giron Pain in left hip [...] MG 1 tablet Orally twice a day Pending Test Test Name Order Date MRI : Hip, left, without contrast 2024 Next Appt Details Follow Up: via phone to repo rt test results, Reason: Provider Name:Sergio Olmedo ry, 08/06/2025 09:00:00 AM, [address], [place], [place], [id number], Progress Notes * ALIZA MAOEDOB:0 1950 (74 yo F)Acc No.[id number]:04/09/2025 Progress Notes Patient: ALIZA STOCKTON Provider: Rsus Giron M.D. :1950 A ge:74 Y S ex:Female Date:04/09/2025 Address:[address] [place] [address], [id number] Subjective: * Chief Complaints: * 1 . [...] urine. 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 * Procedure Codes: G2211 Complex e/m visit add on. * Electronic signature of Tessa Giron MD on 04/12/2025 at 07:44 AM EDT Sign off status: Pending * Provider: Russ Giron M.D. Date: 0 04/09/2025 Generated for Cyrus viera/Annabel/Kiasmitting on: 04/12/2025 07:44 AM EDT History and Physical [...]
--- NOTE | 2025-04-12 07:43 | MR_ITS ---
FINAL REPORT CLINICAL HISTORY: PAIN IN LEFT HIP. limited rom COMPARISON: None FINDINGS: MR LEFT HIP TECHNIQUE: Multiplanar MR without gadolinium enhancement. FINDINGS: ARTICULAR CARTILAGE: There is complete loss of the cartilage of the femoral head and acetabulum along the weightbearing surfaces of the hip. MARROW SIGNAL: There is subchondral bone marrow edema and cystic changes associated with osteoarthritis. No occult fracture is identified. LABRUM: There is a tiny tear of the anterior labrum, and a probable small tear of the lateral labrum. There is diffuse labral degeneration present. JOINT FLUID: A small joint effusion is present. ADJACENT SOFT TISSUES: There are mild changes of trochanteric bursitis. The tendons and adjacent musculature are unremarkable. IMPRESSION: 1. Severe changes of osteoarthritis as described. Reviewed, Interpreted and Dictated by Emeli Croft MD Transcribed by Haydee Andrade Authenticated and [facility]
--- OUTSIDE RECORDS SUMMARY | 2025-04-12 07:44 | XMS_ITS | Patient Health Record ---
Author Organization [facility] Address [address] [place] Natarajan [id number] Care Team Providers Care Internet Sales Consultant Name Role Phone Sergio Giron Primary Care Provider Allergies No Known Allergies Results Component Value Reference Range Notes P-Microalbumin/Creatinine, R andom Urine Sample Reviewed date:08/08/2024 08:58:03 AM Interpretation:Normal Performing Lab: Notes/Report: Test performed by [facility] [address] [place] [address] , [address], [place] [address] Tino Richard MD, Retirement Manager CLIA: [id number] Albumin/Creatinine Ratio, Urine 11 0-30 ug/mg Microalbumin, Urine, Random 1.7 Creatinine, Urine 153.8 P-TSH reflex to FT4 Reviewed date:08/08/2024 08:58:03 AM Interpretation:Normal Performing Lab: Notes/Report: Test performed by [facility] [address] [place] [address] , [address], [place] [address] Tino Richard MD, Retirement Manager CLIA: [id number] TSH reflex to FT4 2.13 0.43-5.25 mU/L P-Lipid Panel Reviewed date:08/08/2024 08:58:03 AM Interpretation:chol 246, non-hdl 145, ldl 130 Performing Lab: Notes/Report: Test performed by [facility] [address] [place] [address] , [address], [place] [address] Tino Richard MD, Retirement Manager CLIA: [id number] Cholesterol 246 <200 mg/dL Triglycerides 77 <150 [...] Interpretation:Normal Performing Lab: Notes/Report: Test performed by [facility], [address] , [facility], [place] [address] Tino Richard MD, Retirement Manager CLIA: [id number] Sodium 140 135-145 mmol/L Potassium 4.5 3.5-5.3 [...] 0.7 <0.2-1.2 mg/dL A/G Ratio 1.6 1.1-2.5 GISELL Reviewed date:04/18/2024 09:15:56 AM Interpretation:satisfactory Performing Lab: Notes/Report: satisfactory EKG Reviewed date:01/19/2025 09:01:27 AM Interpretation: Performing Lab: Notes/Report: Urinalysis - Inhouse Reviewed date:12/27/2024 05:32:54 PM Interpretation:Abnormal Performing Lab: Notes/Report: Abnormal Color/Clarity yellow/clear Leuk 1+ Nitrite Pos Urobili 3.2 Protein Neg pH 5.5 Blood Neg Sp. Gr. 1.020 Ketone Neg Bili Neg Gluc Neg TEN-UTI panel Reviewed date:01/01/2025 04:54:22 PM Interpretation:E. Coli Performing Lab: Notes/Report: E. Coli Bone density Reviewed date:04/11/2025 06:16:02 PM Interpretation:osteopenia of forearm Performing Lab: Notes/Report: osteopenia of forearm Medications Medication SIG (Take, Route, Frequency, Duration) Notes Start Date End Date Status Wegovy 1 MG/0.5ML 0.5 mL Subcutaneous weekly 04/09 Active amLODIPine Besylate 5 MG 1 tablet Orally Once a day as needed 04/27/2023 Active Baclofen 5 MG 1 tablet Orally twice a day As needed Active Celecoxib 200 mg 1 capsule with food Orally once daily; Duration: 90 days Active Immunizations Vaccine Route Administration Date Status Comme nts COVID 19 Moderna Unknown 11/06/2020 Administered COVID 19 Moderna Unknown 12/04/2020 Administered COVID 19 Moderna Unknown 09/10/2021 Administered Problems Problem Type SNOMED Code ICD Code Onset Dates Problem Status W/U Status Risk Notes Problem Hyperlipidaemia (51817850) Hyperlipidemia NOS (272.4) Active confirmed Problem Osteopenia (320344395) Osteopenia (M85.80) Active confirmed Problem Sciatic nerve lesion (207492501) Piriformis syndrome of left side (G57.02) Active confirmed Problem Arthropathy of lumba r facet joint (661266574) Lumbar facet arthropathy (M47.816) Active confirmed Problem Chronic pain (14308823) Other chronic pain (G89.29) Active confirmed Problem Sciatica (36730535) Lumbago with sciatica, left side (M54.42) Active confirmed Problem Acute cystitis (20232207) Acute cystitis without hematuria (N30.00) Active confirmed Problem Urge incontinence of urine (51584327) Urge incontinence (N39.41) Active confirmed Problem Chronic pain (20903592) Other chronic pain (G89.29) Active confirmed Problem Obese class II (959113169732804) BMI 36.0-36.9,adult (Z68.36) Active confirmed Problem Sciatica (62746437) Right sided sciatica (M54.31) Active confirmed Problem Displacement of lumbar intervertebral disc without myelopathy (64195468) Herniated intervertebral disc of lumbar spine (M51.26) Active confirmed Problem Sciatica (41824247) Acute bilate ral low back pain with left-sided sciatica (M54.42) Active confirmed Problem Degenerative disc disease (71463175) DDD (degenerative disc disease), lumbar (M51.36) Active confirmed Problem Pure hypercholesterolemia (581869574) Pure hypercholesterolemia (E78.00) Active confirmed Problem Arthritis of right hip (6756098813327686) Arthritis of right hip (M16.11) Active confirmed Problem Obesity (991797085) Non morbid o besity (E66.9) Active confirmed Problem Spinal stenosis of lumbar region (31468071) Spinal stenosis of lumbar region without neurogenic claudication (M48.061) Active confirmed Problem Chronic gouty arthritis (35759627) Chronic gout of foot, unspecified cause, 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) Active confirmed Problem Abnormal findings on diagnostic imaging of breast (454468022) Abnormality of right breast on screening mammogram (R92.8) Active confirmed Problem Primary hypertension (65243453) Primary hypertension (I10) Active confirmed Problem Localized, 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) Arthritis pain, hip (M16.10) Active confirmed Problem Arthritis of joint o f toe (325185514) Arthritis of joint of toe (M19.079) Active confirmed Problem Atypical ductal hyperplasia of right breast (45539839917150276) Atypical ductal hyperplasia of right breast (N60.91) Active confirmed Vital Signs Heart Rate 70 /min 04/09/2025 Blood pressure diastolic 80 mm Hg 04/09/2025 Height 63 in 04/09/2025 Blood pressure systolic 142 mm Hg 04/09/2025 Weight 204 lbs 04/09/2025 BMI 36.13 kg/m2 04/09/2025 Encounters Encounter Location Date Provider Diagnosis [facility] [address] [place], [place] [id number] 05/01/2024 Sergio Rutland Acute bilateral low back pain with left-sided sciatica M54.42 ; DDD (degenerative disc disease), lumbar M51.36 and Lumbar facet arthropathy M47.816 [facility] [address] [facility] [address] [place] [id number] 05/09/2024 Sergio Rutland Acute bilateral low back pain with left-sided sciatica M54.42 ; DDD (degenerative disc disease), lumbar M51.36 ; Lumbar facet arthropathy M47.816 and Herniated intervertebral disc of lumbar spine M51.26 [facility] [address] [place], [place] [id number] 06/29/2024 Sergio Rutland Lumbago with sciatic a, left side M54.42 [facility] [address] [facility] [address] [place], [place] [id number] 08/07/2024 Sergio Rutland Lumbago with sciatic a, left side M54.42 ; Other chronic pain G89.29 ; Lumbar facet arthropathy M47.816 ; Herniated intervertebral disc of lumbar spine M51.26 ; Degeneration of intervertebral disc of lumbar region with discogenic back pain and lower extremity pain M51.362 ; Primary hypertension I10 and Pure hypercholesterolemia E78.00 [facility] [address] [place] [id number] 12/25/2024 Sergio Rutland Pre-op exam Z01.818 ; Lumbago with sciatica, left side M54.42 ; Lumbar facet arthropathy M47.816 ; Herniated intervertebral disc of lumbar spine M51.26 ; Spinal stenosis of lumbar region without neurogenic claudication M48.061 and Primary hypertension I10 [facility] [address] [place], [place] [id number] 12/27/2024 Sergio Rutland Acute UTI N39.0 [facility] [address] [place], [place] [id number] 02/02/2025 Sergio Rutland Primary hypertension I10 [facility] [address] [place], [place] [id number] 02/21/2025 Sergio Rutland Lumbago with sciatic a, left side M54.42 ; Non morbid obesity E66.9 and BMI 36.0-36.9,adult Z68.36 [facility] [address] [place], [place] [id number] 04/09/2025 Sergio Rutland Pain in left hip M25 .552 ; Lumbago with sciatica, left side M54.42 and Non morbid obesity E66.9 [facility] [address] [place], [place] [id number] 04/18/2024 Sergio Rutland [facility] [address] [place], [place] [id number] 05/04/2024 Sergio Rutland [facility] [address] [place], [place] [id number] 07/03/2024 Sergio Rutland [facility] [address] [place], [place] [id number] 08/08/2024 Sergio Rutland [facility] [address] [place] [id number] 09/08/2024 Sergio Rutland [facility] [address] [place], [place] [id number] 10/23/2024 Sergio Rutland Lumbago with sciatic a, left side M54.42 ; Herniated intervertebral disc of lumbar spine M51.26 ; Lumbar facet arthropathy M47.816 and Spinal stenosis of lumbar region without neurogenic claudication M48.061 [facility] [address] [place], [place] [id number] 10/27/2024 Sergio Rutland [facility] [address] [place], [place] [id number] 10/30/2024 Sergio Rutland Primary hypertension I10 [facility] [address] [place], [place] [id number] 10/31/2024 Sergio Rutland [facility] [address] [place], [place] [id number] 11/23/2024 Sergio Rutland [facility] [address] [place], [place] [id number] 03/01/2025 Sergio Rutland Screening for osteop orosis Z13.820 [facility] [address] [place], [place] [id number] 03/07/2025 Sergio Rutland Non morbid obesity E 66.9 [facility] [address] [place], [place] [id number] 03/07/2025 Sergio Rutland Assessments Encounter Date Diagnosis (ICD Code) Assessment Notes Treatment Notes Treatment Clinical Notes Section Notes 05/01/2024 Acute bilateral low back pain with [...] management and had multiple procedures and injections 10/23/2024 Lumbago with sciatic a, left side (ICD-10 - M54.42) 10/23/2024 Herniated interverte bral disc of lumbar spine (ICD-10 - M51.26) 12/25/2024 Pre-op exam (ICD-10 - Z01.818) PATIENT [...] 03/07/2025 Non morbid obesity (ICD-10 - E66.9) 04/09/2025 Lumbago with sciatic a, left side (ICD-10 - M54.42) 04/09/2025 Pain in left hip (IC D-10 - M25.552) 10/30/2024 Primary hypertension (ICD-10 - I10) 12/25/2024 Lumbar facet arthrop athy (ICD-10 - M47.816) 10/23/2024 Lumbar facet arthrop athy (ICD-10 - M47.816) 04/09/2025 Non morbid obesity (ICD-10 - E66.9) 02/21/2025 BMI 36.0-36.9,adult (ICD-10 - Z68.36) 08/07/2024 Lumbar facet arthrop athy (ICD-10 - M47.816) 05/09/2024 Lumbar facet arthrop athy (ICD-10 - M47.816) 05/01/2024 Lumbar facet arthrop athy (ICD-10 - M47.816) 05/09/2024 Herniated interverte bral disc of lumbar spine (ICD-10 - M51.26) Patient has an appt. with pain management in 2 weeks 10/23/2024 Spinal stenosis of lumbar region without neurogenic claudication (ICD-10 - M48.061) 08/07/2024 Herniated interverte bral disc of lumbar spine (ICD-10 - M51.26) 12/25/2024 Herniated interverte bral disc of lumbar [...] Treatment Pending Test Test Name Order Date MRI : Hip, left, without contrast 2024 H-CBC 12/25/2024 H-BMP 12/25/2024 Next Appt Details Provider Name:Sergio Olmedo ry, 08/06/2025 09:00:00 AM, [address] [facility], [address], [place], [place], [id number], Insurance Providers Payer Name Payer Address Payer Phone Subscriber Number Group Number Insured Name Patient Relationship to Insured Coverage Start Date Coverage End Date [employer] [address] [address] [place], [place] [id number] ALIZA WATTERS Self - patient is the insured Medications Administered Medication Instructions Date of Administration Dosage Notes Dexamethasone 12/18/2008 1 mL Medical (General) History Medical History History ICD Code Hyperlipidemia Sciatica NATURE PHOTOGRAPHER - Severo Arevalo Hypertension Lumbar facet arthropathy Lumbar Disc Disease Surgical History Surgery Date(Month/Year) Lumbar Laminectomy, Mesial Facetectomy L 3-L4, L4-L5, Left 01/10/2025 LT Hip Replacement Hospitalization History Reason Date(Month/Year)
--- OUTSIDE RECORDS SUMMARY | 2025-04-12 07:45 | XMS_ITS | Data Portability ---
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 PROCEDURE: Right breast localized excisional biopsy and fluoroscopic interpretation. SURGEON: Arlyn Silva MD CONSUMER INSIGHTS INTERN: Basil Perez, who helped with retraction. SPECIMEN: [...] please. Thanks! 025 07/11/20 25 [email or web address] [facility], [address] [place] [address], [address], 5 13:54:56 MAMMO, screenin g, tomosynt hesis, bilatera l, w/ CAD - Due in 10/2024. Clinic follow-u p with Pat same day please. Thanks! 024 05/19/20 [email or web address] [facility], [address] [place], [address], 4 08:56:56 Medication Orders None recorded . Patient TargetsNo targets recorded. Patient InstructionsNo instructions recorded. Reason for Referral None Reported. Results Created Date Observation Date Name Description Value Unit Range Abnormal Flag Note LastModifiedBy Organization Detail LastModifiedTime 11/11/19 24 11/11/2023 COMPL ETE BLOOD COUNT white blood cells 9.5 10*3/ uL 3.8-10 .8 normal Not Available [facility] [address] [place] [address], [address], 11/11/2023 11:33:30 11/11/19 24 11/11/2023 COMPL ETE BLOOD COUNT red blood cells 4.62 10*6/ uL 3.80-5 .20 normal Not Available [facility] [address] [place] [address], [address], 11/11/2023 11:33:30 11/11/19 24 11/11/2023 COMPL ETE BLOOD COUNT hemoglobin 14.3 g/dL 12.0-1 6.0 normal Not Available [facility] [address] [place] [address], [address], 11/11/2023 11:33:30 11/11/19 24 11/11/2023 COMPL ETE BLOOD COUNT hematocrit 42.6 % 35.0-4 7.0 normal Not Available [facility] [address] [place] [address], [address], 11/11/2023 11:33:30 11/11/19 24 11/11/2023 COMPL ETE BLOOD COUNT MCV 92 fL 80-100 normal Not Available [facility] [address] [place] [address], [address], 11/11/2023 11:33:30 11/11/19 24 11/11/2023 COMPL ETE BLOOD COUNT MCH 31 pg 26-35 normal Not Available [facility] [address] [place] [address], [address], 11/11/2023 11:33:30 11/11/19 24 11/11/2023 COMPL ETE BLOOD COUNT MCHC 34 g/dL 32-36 normal Not Available [facility] [address] [place] [address], [address], 11/11/2023 11:33:30 11/11/19 24 11/11/2023 COMPL ETE BLOOD COUNT RDW 13.6 % 11.0-1 5.0 normal Not Available [facility] [address] [place] [address], [address], 11/11/2023 11:33:30 11/11/19 24 11/11/2023 COMPL ETE BLOOD COUNT MPV 8.3 fL 6.2-10 .5 normal Not Available [facility] [address] [place] [address], [address], 11/11/2023 11:33:30 11/11/19 24 11/11/2023 COMPL ETE BLOOD COUNT platelet count 300 10*3/ uL 150-40 0 normal Not Available [facility] [address] [place] [address], [address], 11/11/2023 11:33:30 11/11/19 24 11/11/2023 COMPL ETE BLOOD COUNT neutrophil,a bsolute 7.4 10*3/ uL 1.6-8. 4 normal Not Available [facility] [address] [place] [address], [address], 11/11/2023 11:33:30 11/11/19 24 11/11/2023 COMPL ETE BLOOD COUNT lymphocyte,a bsolute 1.1 10*3/ uL 0.4-5. 1 normal Not Available [facility] [address] [place] [address], [address], 11/11/2023 11:33:30 11/11/19 24 11/11/2023 COMPL ETE BLOOD COUNT monocyte,abs olute 0.8 10*3/ uL 0.0-1. 2 normal Not Available [facility] [address] [place] [address], [address], 11/11/2023 11:33:30 11/11/19 24 11/11/2023 COMPL ETE BLOOD COUNT eosinophil,a bsolute 0.1 10*3/ uL 0.0-0. 8 normal Not Available [facility] [address] [place] [address], [address], 11/11/2023 11:33:30 11/11/19 24 11/11/2023 COMPL ETE BLOOD COUNT basophil,abs olute 0.1 10*3/ uL 0.0-0. 3 normal Not Available [facility] [address] [place] [address], [address], 11/11/2023 11:33:30 11/11/19 24 11/11/2023 COMPL ETE BLOOD COUNT % neutrophils 78.1 % 42.0-7 8.0 high Not Available [facility] [address] [place] [address], [address], 11/11/2023 11:33:30 11/11/19 24 11/11/2023 COMPL ETE BLOOD COUNT % lymphocytes 12.1 % 11.0-4 7.0 normal Not Available [facility] [address] [place] [address], [address], 11/11/2023 11:33:30 11/11/19 24 11/11/2023 COMPL ETE BLOOD COUNT % monocytes 8.4 % 0.0-11 .0 normal Not Available [facility] [address] [place] [address], [address], 11/11/2023 11:33:30 11/11/19 24 11/11/2023 COMPL ETE BLOOD COUNT % eosinophils 0.7 % 0.0-7. 0 normal Not Available [facility] [address] [place] [address], [address], 11/11/2023 11:33:30 11/11/19 24 11/11/2023 COMPL ETE BLOOD COUNT % basophils 0.7 % 0.0-3. 0 normal Not Available [facility] [address] [place] [address], [address], 11/11/2023 11:33:30 11/11/19 24 11/11/2023 COMPL ETE BLOOD COUNT nucleated red cells 0.0 % 0.0-0. 9 normal Not Available [facility] [address] [place] [address], [address], 11/11/2023 11:33:30 11/11/19 24 11/11/2023 COMPL ETE BLOOD COUNT nucleated RBCs, absolute 0.00 10*3/ uL not estab. normal Not Available [facility] [address] [place] [address], [address], 11/11/2023 11:33:30 11/11/19 24 11/11/2023 COMP. METAB OLIC PANEL glucose 91 mg/dL 74-100 normal Not Available [facility] [address] [place] [address], [address], 11/11/2023 12:18:41 11/11/19 24 11/11/2023 COMP. METAB OLIC PANEL blood urea nitrogen 18 mg/dL 6-20 normal Not Available [facility] [address] [place] [address], [address], 11/11/2023 12:18:41 11/11/19 24 11/11/2023 COMP. METAB OLIC PANEL creatinine 0.67 mg/dL 0.50-0 .95 normal Not Available [facility] [address] [place] [address], [address], 11/11/2023 12:18:41 11/11/19 24 11/11/2023 COMP. METAB OLIC PANEL BUN/creatini ne ratio 27 (calc ) 10-20 high Not Available [facility] [address] [place] [address], [address], 11/11/2023 12:18:41 11/11/19 24 11/11/2023 COMP. METAB OLIC PANEL sodium 138 mmol/ L 136-14 5 normal Not Available [facility] [address] [place] [address], [address], 11/11/2023 12:18:41 11/11/19 24 11/11/2023 COMP. METAB OLIC PANEL potassium 4.4 mmol/ L 3.4-5. 0 normal Not Available [facility] [address] [place] [address], [address], 11/11/2023 12:18:41 11/11/19 24 11/11/2023 COMP. METAB OLIC PANEL chloride 99 mmol/ L 98-107 normal Not Available [facility] [address] [place] [address], [address], 11/11/2023 12:18:41 11/11/19 24 11/11/2023 COMP. METAB OLIC PANEL carbon dioxide 28 mmol/ L 22-31 normal Not Available [facility] [address] [place] [address], [address], 11/11/2023 12:18:41 11/11/19 24 11/11/2023 COMP. METAB OLIC PANEL anion gap 11 (calc ) 7-25 normal Not Available [facility] [address] [place] [address], [address], 11/11/2023 12:18:41 11/11/19 24 11/11/2023 COMP. METAB OLIC PANEL calcium 9.8 mg/dL 8.6-10 .2 normal Not Available [facility] [address] [place] [address], [address], 11/11/2023 12:18:41 11/11/19 24 11/11/2023 COMP. METAB OLIC PANEL total protein 7.5 g/dL 6.4-8. 3 normal Not Available [facility] [address] [place] [address], [address], 11/11/2023 12:18:41 11/11/19 24 11/11/2023 COMP. METAB OLIC PANEL albumin 4.4 g/dL 3.5-5. 2 normal Not Available [facility] [address] [place] [address], [address], 11/11/2023 12:18:41 11/11/19 24 11/11/2023 COMP. METAB OLIC PANEL globulin 3.1 1.5-4. 5 normal Not Available [facility] [address] [place] [address], [address], 11/11/2023 12:18:41 11/11/19 24 11/11/2023 COMP. METAB OLIC PANEL albumin/glob ulin ratio 1.4 (calc ) 1.1-2. 5 normal Not Available [facility] [address] [place] [address], [address], 11/11/2023 12:18:41 11/11/19 24 11/11/2023 COMP. METAB OLIC PANEL bilirubin, total 0.6 mg/dL 0.1-1. 2 normal Not Available [facility] [address] [place] [address], [address], 11/11/2023 12:18:41 11/11/19 24 11/11/2023 COMP. METAB OLIC PANEL alkaline phosphatase 111 U/L 30-121 normal Not Available [facility] [address] [place] [address], [address], 11/11/2023 12:18:41 11/11/19 24 11/11/2023 COMP. METAB OLIC PANEL AST 18 U/L 0-32 normal Not Available [facility] [address] [place] [address], [address], 11/11/2023 12:18:41 11/11/19 24 11/11/2023 COMP. METAB OLIC PANEL ALT 24 U/L 0-33 normal Not Available [facility] [address] [place] [address], [address], 11/11/2023 12:18:41 11/11/19 24 11/11/2023 COMP. METAB OLIC PANEL GFR 91 >= 60 normal NOT E New calcu latio n for GFR (CKD- EPI 2020) is formu lated witho ut race adjus tment facto rs at the recom menda tion of the Dennis Ruano y Found atалександр and Gio Smalle ty of Nephr ology . This calcu latio n has not been valid ated in pregn ant women . For pedia tric patie nts refer to https ://ww w.kid des.o rg/pr ofess ional s/KDO QI/gf r_cal culat orPed Not Available [facility] [address] [facility], [place], [address], 11/11/2023 12:18:41 11/12/19 24 11/12/2023 SURGI SIVA [...] e quali ty for effec tive ER, [place], Her2 hansard reporter tor testi ng. [email or web address] 11/12 03:06 PM Micro scopi c Descr [...] 10:27 Page 1 of [address] Not [address] [facility] [address] [place] [address], [address], 11/18/2023 10:27:38 10/14/19 24 09/14/2023 MAMMO , unila teral , right and US, breas t, right No observ ation record ed. [email or web address] [facility] [address], [place], [address], 10/26/2023 14:07:04 11/11/19 24 11/11/2023 US R brst guide d needl e LOC [address] [place] [address] Shaniqua bullard Name: SHAWNA bullard : 9[birth year] Shaniqua bullard [...] By: Manuel Mccallum on 024 10:52 AM [email or web address] [facility] [address], [place], [address], 11/11/2023 13:58:50 11/19/19 24 05/30/2021 MAMMO , unila teral , right and US, breas t, right No observ ation record ed. [email or web address] Not Available 2023 13:39:24 05/19/20 24 05/19/2024 MAMMO , diagn ostic , tomos ynthe sis, unila teral , w/ CAD [facility] [address] [place] [address] [place] [address] Shaniqua bullard Name: SHAWNA bullard : 949 Age: 73 years Patiedilma t 9 Orderi ng Provid er: ISABEL SILVA EXAM DATE: 2023 EXAM: MG RT [...] ons were discus sed with the patien juan miguel. Interp reted By: Abner Ballard MD Electr onical ly Signed By: Abner Ballard MD on 11:53 AM [email or web address] [facility] [address], [place], [address], 05/23/2024 08:43:02 11/22/19 25 11/22/2024 MAMMO , scree pineda, tomos ynthe sis, bilat eral, w/ CAD [address] [facility] [place] [address] Patiedilma t Name: SHAWNA bullard : 949 Age: 74 years Patiedilma t 9 Orderi ng Provid er: NIMCO [...] t has been entere d into an [employer] er system . Result s were mailed or given to the patien t. Interp reted By: Annie angeles MD Electr onical ly Signed By: Annie angeles MD on 025 11:36 AM [facility] [address], [address], 11/23/2024 05:49:27 Result Notes Documentation Provider Name and Address Organization Details Recorded Time Mammo, Diagnostic, Tomosynthesis, Unilateral, W/ Cad : [address] [address] Patient Name: SHAWNA MAO Patient : 1950 Age: 73 years Patient Ordering Provider: ARLYN SILVA EXAM DATE: 05/19/2024 EXAM: MG RT DIAG NIALL MAMMOGRAM INDICATION: Atypical ductal hyperplasia PROCEDURE: Multislice imaging of the right breast was performed including standard views using [employer] tomosynthesis equipment (3D mammography). 2D images [...] By: Abner Ballard MD N SILVA MD [address] [place] [address], [address], [facility] 05/23/2024 08:43:02 Mammo, Screening, Tomosynthesis, Bilateral, W/ Cad : [address] [address] Patient Name: SHAWNA MAO Patient : 1950 [...] breasts was performed in standard projections using [employer] tomosynthesis equipment (3D mammography). 2D images [...] the patient. Interpreted By: Annie Byrne MD JIANG APRN [address] [place] [address], [address], [facility] 11/22/2024 11:53:03 Problems Name Problem SNOMED Code Status Onset Date Resolution Date Notes Provider Name and Address Organization Details Recorded Time Hypertensiv e disorder 83222492 Active 2023 Blanche Gustafson [facility] 4 13:08:02 Atypical ductal hyperplasia of left breast 7544597557202 9104 Active 2023 ARLYN SILVA MD [address] [place] [address], [address], [facility] 4 14:07:56 Atypical ductal hyperplasia of right breast 8417879585765 9100 Active 2023 ARLYN SILVA MD [address] [place] [address], [address], [facility] 4 14:08:08 Problem Notes None recorded. Procedures Surgical History Date Name Laterality Status Provider Name and Address Organization Details Recorded Time 11/12/19 24 breast procedure completed Blanche Gustafson [facility] 11/18/2023 14:10:28 09/14/20 23 Date of Last Mammogram completed Blanche [facility] 10/25/2023 13:11:04 [facility] 10/25/2023 13:10:21 Imaging Results None recorded. Procedure [...] in Arterial blood by Pulse oximetry Systolic And Diastolic Provider Name and Address Organization Details Last Updated DateTime 4 162.56 cm 37.8 kg/m2 40503.3 2 g 82 /min 94 % 94 % 136/86 mm[Hg] [facility] 4 13:37:41 Date Recorded Body height Body mass index (BMI) Body weight Heart rate Oxygen saturation Oxygen saturation in Arterial blood by Pulse oximetry Systolic And Diastolic Provider Name and Address Organization Details Last Updated DateTime 4 162.56 cm 37.8 kg/m2 94914.3 2 g 67 /min 97 % 97 % 162/82 mm[Hg] [facility] 4 14:18:11 Date Recorded Body height Body mass index (BMI) Body weight Heart rate Oxygen saturation Oxygen saturation in Arterial blood by Pulse oximetry Systolic And Diastolic Provider Name and Address Organization Details Last Updated DateTime 5 162.56 cm 36.6 kg/m2 26074.2 7 g 71 /min 98 % 98 % 132/88 mm[Hg] Latoya Nails [facility] 5 11:24:37 Date Recorded Body height Body mass index (BMI) Body weight Heart rate Oxygen saturation Oxygen saturation in Arterial blood by Pulse oximetry Systolic And Diastolic Provider Name and Address Organization Details Last Updated DateTime 4 162.56 cm 37 kg/m2 64956.4 6 g 61 /min 96 % 96 % 128/84 mm[Hg] Latoya Nails [facility] 4 11:54:05 Social History Question Answer Notes LastModified by Rare Pink Details LastModified Time Tobacco Smoking Status Former Smoker Blanche Gustafson [facility] 10/25/2023 13:10:01 When Did You Quit Smoking? 16+yearssinc elastcigaret te [email or web address] Information not available 10/25/2023 What Was The Date Of Your Most Recent Tobacco Screening? 11/18/2023 [email or web address] Information not available 11/18/2023 Has Tobacco Cessation Counseling Been Provided? No [email or web address] Information not available 10/25/2023 Sex: Unknown Functional Status Question Answer Note LastModified by Rare Pink Details LastModified Time Do you use any illicit or recreational drugs? No [email or web address] Information not available 10/25/2023 Do you or have you ever used any other forms of tobacco or nicotine? No [email or web address] Information not available 10/25/2023 What is your level of alcohol consumption? Occasional [email or web address] Information not available 10/25/2023 Are you currently employed? No [email or web address] Information not available 10/25/2023 Mental Status None recorded. Family History Relationship Description Onset Age of this Age Resolved Age Notes LastModified by Organization Details LastModified Time Father Aneurysm AORTA ANEYRY SM [email or web address] Not available 10/25/2023 13:09:01 Medical History Condition [...] SNOMED-CT Code Diagnosis ICD10 Code Diagnosis Note [id number] ARLYN SILVA MD BREAST SURGERY [address] [place] [address] 10/25/2023 12:55:54 10/25/2023 14:31:07 Atypical ductal hyperplasia of right breast [id number] 9696348 N60.91 Patient has a small mass in [...] her scheduled for November 12 at the [facility]. [id number] ARLYN SILVA MD SURGERY SCHEDULE [address] [place] [address] 11/12/2023 06:43:03 11/12/2023 06:44:20 Atypical ductal hyperplasia of right breast [id number] 7850628 N60.91 Patient has a small mass in [...] her scheduled for November 12 at the [facility]. [id number] ARLYN SILVA MD BREAST SURGERY SB [address] [place] [address] 11/18/2023 14:04:09 11/18/2023 15:00:22 Atypical ductal hyperplasia of right breast 0616919370 7213807 N60.91 Patient is status post excision of a papilloma and atypical ductal hyperplasi a with only a small focus of ADH seen and nothing at the margins. I offered to place patient and our high risk clinic and follow her more closely with imaging but she would like to continue her imaging at [place] and she will come back as needed. She is healing very nicely. [id number] [place] [address] [place] [address] 05/19/2024 11:09:52 05/19/2024 13:13:04 Atypical ductal hyperplasia of right breast [id number] 3590381 N60.91 Screening for malignant neoplasm of breast 754189471 Z12.39 [facility] for malignant neoplasm of breast [id number] 36641 Z91.89 NCCN Guidelines for patients over 20% [...] yearly. Last bilateral imaging in 08/2023 at [facility]. Option to continue mammograms there vs here discussed. She would like to transfer imaging here. We will plan high risk clinical breast exams same day as mammograms . Order placed as below. If negative in 10/2024, go to once a year. She v/u and agrees with plan. She is welcome to call at anytime if new problems arise. [id number] LISA JIANG APRN BREAST SURGERY [address] [place] [address] 11/22/2024 10:35:36 11/22/2024 13:54:56 Atypical ductal hyperplasia of right breast 6730511054 3312979 N60.91 At [facility] for malignant neoplasm of breast [id number] 77433 Z91.89 NCCN Guidelines for patients over 20% [...] arise. Screening for malignant neoplasm of breast [id number] Z12.39 Health Concerns Section Related Observation LastModified by Organization Detai ls LastModified Time None Recorded Concern Status LastModified by Organization Details LastModified Time None Recorded Advance Directives Directive None Recorded Payers Insurance Date Sequence Insurance Name Policy Number Policy Deutsch Covered Member ID Deutsch Member ID Guarantor Name 11/12/2023 2 [place] Shawna Mao [id number] Shawna Mao 11/22/[address] [facility] (MEDICARE REPLACEMENT/A DVANTAGE - PPO) [id number] Shawna Mao [id number] Shawna Mao Notes Date Note Type Note Provider Name and Address Organization Details Recorded Time 10/25/2023 text/html Patient is a 73-year-old who had an abnormal mammogram in August at [facility] and [place]. There is a possible mass that was [...] breast or ovarian cancer. ARLYN SILVA MD [address] [place] [address], [address], [facility] 10/25/2023 14:09:01 11/18/2023 text/html Interval history 11/18/2023: Patient is status post excision of an area of atypia and papilloma last week. She had some soreness but overall is doing well. Pathology revealed a focal area of atypical ductal hyperplasia but nothing at the margins and no residual papilloma was seen. 3: Patient is a 73-year-old who had an abnormal mammogram in August at [facility]. There is a possible mass that was [...] or ovarian cancer. ARLYN SILVA MD [address] [place], [address], [facility] 11/18/2023 14:59:01 05/19/2024 text/html Interval history 05/19/2024: [...] home self breast exams. Risk Assessment:ADH/28.64% by [facility] self breast exam: yesMammogram: diagnostic right mammogram 05/19/2024 results: BiRADS 2Last bilateral mammogram 08/2023 at [facility] Breast MRI: NEVER Interval history 11/18/2023: Patient is status post excision of an area of atypia and papilloma last week. She had some soreness but overall is doing well. Pathology revealed a focal area of atypical ductal hyperplasia but nothing at the margins and no residual papilloma was seen. 3: Patient is a 73-year-old who had an abnormal mammogram in August at [facility]. There is a possible [...] of breast or ovarian cancer. LISA JIANG, VISUAL AID EXPERT [address] [place], [address], [facility] 05/19/2024 13:06:45 11/22/2024 text/html Interval history 11/22/2024: Patient here for ongoing high risk care. She completed her bilateral screening mammogram this morning, resulted BiRADS 2. She denies any new breast concerns. She is having trouble with left sciatica and is scheduled to see a specialist in [facility] tomorrow. Risk Assessment:ADH/28.64% by [facility] self breast exam: yesMammogram: diagnostic right mammogram 05/19/2024 results: BiRADS 2Last bilateral mammogram 08/2023 at [facility] Breast MRI: NEVER Interval history 05/19/2024: Patient [...] had an abnormal mammogram in August at [facility]. There is a possible [...] of breast or ovarian cancer. LISA JIANG, VISUAL AID EXPERT [address] [place], [address], [place] [facility] 11/22/2024 11:57:17 OBGyn Episode No OBEpisode recorded.
== END 2025-04-12 23:59 | disposition home or self-care (01) ==
LOC: RAD 07:42
PROVIDERS: PCP Family Medicine; Visit Provider Family Medicine
DX: M16.12 Unilateral primary osteoarthritis, left hip (principal); M70.62 Trochanteric bursitis, left hip
CPT/HCPCS: 73721

== ENCOUNTER 2025-07-25 09:00 | Outpatient (RCR) | payer MEDICARE, SELFPAY | END 2025-07-25 23:59 | disposition home or self-care (01) | LOC: PT 09:00 | PROVIDERS: PCP Family Medicine; Visit Provider Nurse Practitioner Family | DX: M16.12 Unilateral primary osteoarthritis, left hip (principal) | CPT/HCPCS: 97110; 97140; 97161; 97530 ==

== ENCOUNTER 2025-08-21 09:00 | Outpatient (RCR) | payer MEDICARE, SELFPAY | END 2025-08-21 23:59 | disposition home or self-care (01) | LOC: PT 09:00 | PROVIDERS: PCP Family Medicine; Visit Provider Nurse Practitioner Family | DX: M16.12 Unilateral primary osteoarthritis, left hip (principal) | CPT/HCPCS: 97110; 97140; 97530 ==

== ENCOUNTER 2025-09-10 12:00 | Outpatient (CLI) | payer MEDICARE, SELFPAY ==
--- NOTE | 2025-09-10 12:03 | XR_ITS ---
FINAL REPORT CLINICAL HISTORY: PAIN FINDINGS: LEFT KNEE 3 views of the left knee were obtained. There is no acute fracture or dislocation. The medial and lateral compartment joint spaces are preserved. There is sharpening of the tibial spines. Moderate osteophyte formation is noted along the undersurface of the patella. Well corticated ossific density superior to the patella is probably an intra-articular loose body. Soft tissues are unremarkable. IMPRESSION: No acute bony abnormality. Degenerative/chronic changes. Reviewed, Interpreted and Dictated by Etienne Azevedo MD Transcribed by Sharon Perez Authenticated and [facility]
== END 2025-09-10 23:59 ==
LOC: RAD 12:01
PROVIDERS: PCP Family Medicine; Visit Provider Family Medicine
DX: M17.12 Unilateral primary osteoarthritis, left knee (principal)
CPT/HCPCS: 73562

== ENCOUNTER 2025-09-18 08:37 | Outpatient (CLI) | payer MEDICARE, SELFPAY ==
--- OUTSIDE RECORDS SUMMARY | 2024-12-27 05:00 | XMS_ITS ---
Author Organization [place] Address [address] [facility] [address] [place] [id number] Care Team Providers Care Carpenter Helper Maintenance Name Role Phone Sergio Giron Primary Care Provider [phone] Results Component Value Reference Range Notes Urinalysis - Inhouse Reviewed date:12/27/2024 05:32:54 PM Interpretation:Abnormal Performing Lab: Notes/Report: Abnormal Color/Clarity yellow/clear Leuk 1+ Nitrite Pos Urobili 3.2 Protein Neg pH 5.5 Blood Neg Sp. Gr. 1.020 Ketone Neg Bili Neg Gluc Neg TEN-UTI panel Reviewed date:01/01/2025 04:54:22 PM Interpretation:E. Coli Performing Lab: Notes/Report: E. Coli REASON FOR VISIT u/a Medications Medication SIG (Take, Route, Frequency, Duration) Notes Start Date End Date Status Macrobid 100 MG 1 capsule with food Orally every 12 hrs 12/27/2024 Active Celecoxib 200 mg 1 capsule with food Orally once daily; Duration: 90 days Active Baclofen 5 MG 1 tablet as needed O rally Once a day; Duration: 30 day(s) Active amLODIPine Besylate 5 MG 1 tablet Orally Once a day as needed; Duration: 90 days 04/27/2023 Active Encounters Encounter Location Date Provider Diagnosis Jennifer [address] [facility] [address] [place] [id number] 12/27/2024 Sergio Giron Acute UTI N39.0 Assessments Encounter Date Diagnosis (ICD Code) Assessment Notes Treatment Notes Treatment Clinical Notes Section Notes 12/27/2024 Acute UTI (ICD-10 - N39.0) Plan Of Treatment Medication Medication Name Sig Start Date Stop Date Notes Macrobid 100 MG 1 capsule with food Orally every 12 hrs Next Appt Details Provider Name:Sergio Olmedo ry, 02/04/2026 09:00:00 AM, [address], [place], [place], [id number], Progress Notes * Shawna MAOEDOB:0 1950 (75 yo F)Acc No.[id number]:12/27/2024 Patient: Shawna STOCKTON Provider: Russ Giron M.D. :1950 A ge:74 Y S ex:Female Date:12/27/2024 Address:[address] [place] [address], [id number] Subjective: * Chief Complaints: * 1 . U/a. * Medical History: * Medications: T aking Baclofen 5 MG Tablet 1 tablet as needed Orally Once a day , Taking Celecoxib 200 mg Capsule 1 capsule with food Orally once daily , Taking amLODIPine Besylate 5 MG Tablet 1 tablet Orally Once a day as needed , Medication List reviewed and reconciled with the patient Objective: * Vitals: Assessment: * Assessment: 1. A rajeshe UTI - N39.0 (Primary) Plan: * Treatment: Value Reference Range C olor/Clarity yellow/clear * L euk 1+ * N itrite Pos * U robili 3.2 * P rotein Neg * p H 5.5 * B lood Neg * S p. Gr. 1.020 * K etone Neg * B sienna Neg * G reese Neg * Tanisha Taveras 12/27/2024 12:25:06 PM > Pt informed of UTI-per Dr. Giron, please send abx to Sergio Mendez 12/27/2024 5:32:40 PM > ?LAB: TEN-UTI panel (Collection Date & Time - 12/27/2024)?E. Coli* Sydney Enciso 01/01/2025 04:1 2:43 PM > pt was started on Macrobid. Please let her know she was started on the correct abx, she may return if symptoms persist or return.Tanisha Taveras 01/01/2025 4:53:19 PM > Pt informed, states sx's have improved * Procedure Codes: 8 1002 Urinalysis, no micro * Images: Billing Information: * Visit Code: * Procedure Codes: 02178 Urinalysis, no micro. * Electronic signature of Tessa Giron MD on 09/18/2025 at 08:40 AM EST Sign off status: Pending * Provider: Russ Giron M.D. Date: 0 12/27/2024 Generated for Cyrus viera/Annabel/Jacquelineitting on: 1 11/19/2024 08:40 AM EST
--- OUTSIDE RECORDS SUMMARY | 2025-02-02 04:45 | XMS_ITS ---
Author Organization Carlos Address 1210 [facility] 36 [facility] [address] [place] N[place]ajan [id number] Care Team Providers Care Rip Sawyer Name Role Phone Sergio Giron Primary Care Provider Allergies No Known Allergies REASON FOR VISIT 6 month ckup Medications Medication SIG (Take, Route, Frequency, Duration) Notes Start Date End Date Status amLODIPine Besylate 5 MG 1 tablet Orally Once a day as needed 04/27/2023 Active Baclofen 5 MG 1 tablet as needed O rally Once a day; Duration: 30 day(s) Active Celecoxib 200 mg 1 capsule with food Orally once daily; Duration: 90 days Active Vital Signs Weight 000 lbs 02/02/2025 Blood pressure systolic 132 mm Hg 02/03/20 25 Blood pressure diastolic 80 mm Hg 025 Heart Rate 77 /min 02/02/2025 Height 63 in 02/02/2025 Encounters Encounter Location Date Provider Diagnosis Jennifer 1210 [facility] 36 [facility] [address] [place] Natarajan [phone] 02/02/2025 Sergio Giron Primary hypertension I10 Assessments Encounter Date Diagnosis (ICD Code) Assessment Notes Treatment Notes Treatment Clinical Notes Section Notes 02/02/2025 Primary hypertension (ICD-10 - I10) Plan Of Treatment Medication Medication Name Sig Start Date Stop Date Notes amLODIPine Besylate 5 MG 1 tablet Orally Once a day as needed 04/27/2023 Next Appt Details Follow Up: 6 Months, Reason: Provider Name:Sergio stafford, 02/04/2026 09:00:00 AM, [facility] [address], [address], [place], [phone], Progress Notes * Shawna MAOEDOB:0 1950 (75 yo F)Acc No.[id number]:02/02/2025 Progress Notes Patient: Shawna STOCKTON Provider: Russ Giron M.D. :1950 A ge:74 Y S ex:Female Date:02/02/2025 Address:[address] [place] [address] [address], [place] Subjective: * Chief Complaints: * 1 . 6 month ckup. * HPI: C ardiology: 74 year old female presents with c/o Blood Pressure Elevated? Pt here for 6 mo f/u on hypertension, states she is doing well and does not have any concerns. c/o Hyperlipidemia P t is fasting today. * ROS: D ERMATOLOGY: no R jeni. n o H shea. G ASTROENTEROLOGY: no N ausea. n o V omiting. U ROLOGY: no D ifficulty urinating. n o B lood in urine. 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 * Surgical History: L umbar Laminectomy, Mesial Facetectomy L3-L4, L4-L5, Left 01/10/2025, LT Hip Replacement . * Hospitalization/Major Diagno stic Procedure: D enies Past Hospitalization. * Family History: F ather: . M other: . * Social History: C URRENT TOBACCO USE S moking Status: Patient does NOT smoke. H ome smoke detector use: yes. Marital Status: . Alcohol: Yes, occasionally drinks wine. * Medications: T aking Baclofen 5 MG Tablet 1 tablet as needed Orally Once a day , Taking Celecoxib 200 mg Capsule 1 capsule with food Orally once daily , Taking amLODIPine Besylate 5 MG Tablet 1 tablet Orally Once a day as needed * Allergies: N .K.D.A. Objective: * Vitals: W t: 000, Temp: 97.8, BP: 132/80, HR: 77, Nurse: issac, Ht: 63. * Examination: G eneral Examination: General Appearance: N AD, using a cane to assist with ambulation. H eart: R SR. L ungs: c lear to auscultation. Assessment: * Assessment: 1. P rimary hypertension - I10 (Primary) Plan: * Treatment: * Procedure Codes: G 2211 Complex e/m visit add on, 3075F SYST BP GE 130 - 139MM HG, 3079F DIAST BP 80-89 MM HG * Follow Up: 6 Months * Images: Billing Information: * Visit Code: 48978 Office Visit, Est Pt., Level 3. * Procedure Codes: G2211 Complex e/m visit add on. 3075F SYST BP GE 130 - 139MM HG. 3079F DIAST BP 80-89 MM HG. * Electronic signature of Tessa Giron MD on 09/18/2025 at 08:38 AM EST Sign off status: Pending * Provider: Russ Giron M.D. Date: 0 02/02/2025 Generated for Cyrus viera/Annabel/Jacquelineitting on: 1 11/19/2024 08:38 AM EST History and Physical Notes * HPI (History of Present Illness) Category Sub-Category Detail Notes Category Not es Cardiology Blood Pressure Elevated Pt here for 6 mo f/u on hypertension, states she is doing well and does not have any concerns Hyperlipidemia Pt is fasting today Examination Category Sub-Category Detail Notes Category Not es General Examination Heart: RSR Lungs: clear to auscultatio n General Appearance: NAD, using a cane to assist with ambulation
--- OUTSIDE RECORDS SUMMARY | 2025-02-21 06:45 | XMS_ITS ---
Author Organization Jennifer Address 1210 [facility] 36 [facility] [address]C [place] Natarajan [phone] Care Team Providers Care Geology Faculty Member Name Role Phone Sergio Giron Primary Care Provider Allergies No Known Allergies REASON FOR VISIT back problems Medications Medication SIG (Take, Route, Frequency, Duration) Notes Start Date End Date Status Baclofen 5 MG 1 tablet as needed O rally Once a day; Duration: 30 day(s) Active Wegovy 0.25 MG/0.5ML 0.5 mL Subcutaneous once weekly 02/21/2025 Active Celecoxib 200 mg 1 capsule with food Orally once daily; Duration: 90 days Active amLODIPine Besylate 5 MG 1 tablet Orally Once a day as needed 04/27/2023 Active Problems Problem Type SNOMED Code ICD Code Onset Dates Problem Status W/U Status Risk Notes Problem Obese class II (487261709893 105) BMI 36.0-36.9,a dult (Z68.36) Active confirmed Vital Signs Weight 206 lbs 02/21/2025 Blood pressure systolic 130 mm Hg 02/22/20 25 Blood pressure diastolic 80 mm Hg 025 Heart Rate 72 /min 02/21/2025 Height 63 in 02/21/2025 BMI 36.49 kg/m2 02/21/2025 Encounters Encounter Location Date Provider Diagnosis Jennifer 1210 [facility] [address] [place] [phone] 02/21/2025 Sergio Giron Lumbago with sciatic a, left side M54.42 ; Non morbid obesity E66.9 and BMI 36.0-36.9,adult Z68.36 Assessments Encounter Date Diagnosis (ICD Code) Assessment Notes Treatment Notes Treatment Clinical Notes Section Notes 02/21/2025 Lumbago with sciatica, left side (ICD-10 - M54.42) Patient will likely follow up with pain management to discuss further treatment 02/21/2025 Non morbid obesity (ICD-10 - E66.9) 02/21/2025 BMI 36.0-36.9,adul t (ICD-10 - Z68.36) Plan Of Treatment Medication Medication Name Sig Start Date Stop Date Notes Wegovy 0.25 MG/0.5ML 0.5 mL Subcutaneous once weekly 02/21 Treatment Notes Assessment Notes Lumbago with sciatica, left side Patient will likely follow up with pain management to discuss further treatment Next Appt Details Follow Up: via phone to repo rt progress, Reason: Provider Name:Sergio Olmedo , 02/04/2026 09:00:00 AM, 1210 [place] [facility] 36 [facility], [address] , [place], [place], [id number], Progress Notes * Shawna MAOEDOB:0 1950 (75 yo F)Acc No.[id number]:02/21/2025 Progress Notes Patient: Shawna STOCKTON Provider: Russ Giron M.D. :1950 A ge:74 Y S ex:Female Date:02/21/2025 Address:[address] [place] [address], [place], [place] Subjective: * Chief Complaints: * 1 . Back problems. * HPI: L e74 year old female presents with c/o Leg pain P t complains of ongoing lt leg pain. Pt states pain starts in lt lower back and radiates down to lt foot. Pt states she has appt with surgeon Dr. Castle tomorrow. . * ROS: D ERMATOLOGY: no R jeni. n o H shea. G ASTROENTEROLOGY: no N ausea. n o V omiting. U ROLOGY: no D ifficulty urinating. n o B lood in urine. 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 Objective: * Vitals: W t: 206, Temp: 97.9, BP: 130/80, HR: 72, Nurse: issac, Ht: 63, BMI:36.49. * Examination: G eneral Examination: General Appearance: N AD, using a cane to assist with ambulation. H eart: R SR. L ungs: c lear to auscultation. Assessment: * Assessment: 1. L umbago with sciatica, left side - M54.42 (Primary) 2 . N on morbid obesity - E66.9 3 . B NC 36.0-36.9,adult - Z68.36 Plan: * Treatment: 2. N on morbid obesity Start Wegovy Solution Auto-injector, 0.25 MG/0.5ML, 0.5 mL, Subcutaneous, once weekly. * Procedure Codes: G 2211 Complex e/m visit add on, G8752 MOST RECENT SYSTOLIC BP < 140MM HG, G8754 MOST RECENT DIASTOLIC BP < 90MM HG * Follow Up: v ia phone to report progress * Images: Billing Information: * Visit Code: 78211 Office Visit, Est Pt., Level 3. * Procedure Codes: G2211 Complex e/m visit add on. G8752 MOST RECENT SYSTOLIC BP < 140MM HG. G8754 MOST RECENT DIASTOLIC BP < 90MM HG. * Electronic signature of Tessa Giron MD on 09/18/2025 at 08:39 AM EST Sign off status: Pending * Provider: Russ Giron M.D. Date: 0 02/21/2025 Generated for Cyrus viera/Annabel/Jack on: 1 11/19/2024 08:39 AM EST History and Physical Notes * HPI (History of Present Illness) Category Sub-Category Detail Notes Category Not es Leg Leg pain Pt complains of ongoing lt leg pain. Pt states pain starts in lt lower back and radiates down to lt foot. Pt states she has appt with surgeon Dr. Castle tomorrow. Examination Category Sub-Category Detail Notes Category Not es General Examination Heart: RSR Lungs: clear to auscultatio n General Appearance: NAD, using a cane to assist with ambulation
--- OUTSIDE RECORDS SUMMARY | 2025-04-09 04:00 | XMS_ITS ---
Author Organization [facility] Address [address] [facility] [address] [place] [id number] Care Team Providers Care Television Host Name Role Phone Sergio Giron Primary Care Provider [phone] Allergies No Known Allergies Results Component Value Reference Range Notes MRI : Hip, left, without con trast Reviewed date:04/17/2025 11:39:17 AM Interpretation:Severe Osteoarthritis Performing Lab: Notes/Report: Severe Osteoarthritis REASON FOR VISIT back problems Medications Medication SIG (Take, Route, Frequency, Duration) Notes Start Date End Date Status Wegovy 1 MG/0.5ML 0.5 mL Subcutaneous weekly 04/09 Active amLODIPine Besylate 5 MG 1 tablet Orally Once a day as needed 04/27/2023 Active Baclofen 5 MG 1 tablet Orally twice a day As needed Active Celecoxib 200 mg 1 capsule with food Orally once daily; Duration: 90 days Active Vital Signs Weight 204 lbs 04/09/2025 Blood pressure systolic 142 mm Hg 04/09/20 25 Blood pressure diastolic 80 mm Hg 025 Heart Rate 70 /min 04/09/2025 Height 63 in 04/09/2025 BMI 36.13 kg/m2 04/09/2025 Encounters Encounter Location Date Provider Diagnosis [facility] [address] [place] [id number] 04/09/2025 Sergio Giron Pain in left hip M25.552 ; Lumbago with sciatica, left side M54.42 and Non morbid obesity E66.9 Assessments Encounter Date Diagnosis (ICD Code) Assessment Notes Treatment Notes Treatment Clinical Notes Section Notes 04/09/2025 Pain in left hip (ICD-10 - M25.552) 04/09/2025 Lumbago with sciatica, left side (ICD-10 - M54.42) 04/09/2025 Non morbid obesity (ICD-10 - E66.9) Plan Of Treatment Medication Medication Name Sig Start Date Stop Date Notes Wegovy 1 MG/0.5ML 0.5 mL Subcutaneous weekly 04/09/2025 Wegovy 0.5 MG/0.5ML 0.5 mL Subcutaneous once a week 2024 Baclofen 5 MG 1 tablet Orally twice a day Next Appt Details Follow Up: via phone to repo rt test results, Reason: Provider Name:Sergio Olmedo ry, 02/04/2026 09:00:00 AM, [address] [facility] [address] , [place], [place], [id number], Progress Notes * Shawna MAOEDOB:0 1950 (75 yo F)Acc No.[id number]:04/09/2025 Progress Notes Patient: Shawna STOCKTON Provider: Russ Giron M.D. :1950 A ge:74 Y S ex:Female Date:04/09/2025 Address:[address] [place], [place] [phone] Subjective: * Chief Complaints: * 1 . Back problems. * HPI: H PI: 74 year old female presents with c/o Patient is here today for?Pt would like to discuss Wegovy. Pt states she is having successful weigh loss . L ower back: c/o Low Back Pain P t complains of lower back pain. Pt states she has been doing PT for about a month and it has been helping. Pt states PT advised her to get lt hip MRI. Pt states ortho recommended her to get another injection in SI joint but pt has had them in the past and has not had any improvement. * ROS: D ERMATOLOGY: no R jeni. n o H shea. G ASTROENTEROLOGY: no N ausea. n o V omiting. U ROLOGY: no D ifficulty urinating. n o B lood in urine. 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 Objective: * Vitals: W t: 204, Temp: 98.0, BP: 142/80, HR: 70, Nurse: issac, Ht: 63, BMI:36.13. * Examination: G eneral Examination: General Appearance: N AD, standing in the room, has pain with sitting and standing, walks with a limp. Assessment: * Assessment: 1. P ain in left hip - M25.552 (Primary) 2 . L umbago with sciatica, left side - M54.42 3 . N on morbid obesity - E66.9 Plan: * Treatment: 2.?Lumbago with sciatica, left side? Refill Baclofen Tablet, 5 MG, 1 tablet, Orally, twice a day As needed, 45, Refills 2.??3.?Non morbid obesity? Stop Wegovy Solution Auto-injector, 0.5 MG/0.5ML, 0.5 mL, Subcutaneous, once a week;?Start Wegovy Solution Auto-injector, 1 MG/0.5ML, 0.5 mL, Subcutaneous, weekly, 2 mL, Refills 0.?? * Procedure Codes: G 2211 Complex e/m visit add on, 1036F TOBACCO NON-USER * Follow Up: v ia phone to report test results * Images: Billing Information: * Visit Code: 48838 Office Visit, Est Pt., Level 4. * Procedure Codes: G2211 Complex e/m visit add on. 1036F TOBACCO NON-USER. * Electronic signature of Tessa Giron MD on 09/18/2025 at 08:38 AM EST Sign off status: Pending * Provider: Russ Giron M.D. Date: 0 04/09/2025 Generated for Cyrus viera/Annabel/eTransmitting on: 1 11/19/2024 08:38 AM EST History and Physical Notes * HPI (History of Present Illness) Category Sub-Category Detail Notes Category Not es Lower back Low Back Pain Pt complains of lower back pain. Pt states she has been doing PT for about a month and it has been helping. Pt states PT advised her to get lt hip MRI. Pt states ortho recommended her to get another injection in SI joint but pt has had them in the past and has not had any improvement HPI Patient is here today for Pt wou ld like to discuss Wegovy. Pt states she is having successful weigh loss Examination Category Sub-Category Detail Notes Category Not es General Examination General Appearance: NAD, sta nding in the room, has pain with sitting and standing, walks with a limp
--- OUTSIDE RECORDS SUMMARY | 2025-04-16 06:45 | XMS_ITS ---
Author Organization [facility] Address [address] [facility] [address] [facility] [address] [place] [id number] Care Team Providers Care Exploration Driller Name Role Phone Sergio Giron Primary Care Provider Allergies No Known Allergies REASON FOR VISIT Discuss MRI Encounters Encounter Location Date Provider Diagnosis Jennifer [address] [facility] [address] [place] [id number] 04/16/2025 Sergio Giron Plan Of Treatment Next Appt Details Provider Name:Sergio Olmedo ry, 02/04/2026 09:00:00 AM, [address], [place], [id number], Progress Notes * Shawna MAOEDOB:0 1950 (75 yo F)Acc No.[id number]:04/16/2025 Progress Notes Patient: Shawna STOCKTON Provider: Russ Giron M.D. :1950 A ge:74 Y S ex:Female Date:04/16/2025 Address:[facility] [address], [id number] Subjective: * Chief Complaints: * 1 . Discuss MRI. * HPI: H PI: 74 year old female presents with c/o Here for follow up on:?04/12/2025 LT hip MRI, see pt docs for report. * ROS: D ERMATOLOGY: no R jeni. n o H shea. G ASTROENTEROLOGY: no N ausea. n o V omiting. U ROLOGY: no D ifficulty urinating. n o B lood in urine. 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 * Surgical History: L umbar Laminectomy, Mesial Facetectomy L3-L4, L4-L5, Left 01/10/2025, LT Hip Replacement . * Hospitalization/Major Diagno stic Procedure: D enies Past Hospitalization. * Family History: F ather: . M other: . * Social History: C URRENT TOBACCO USE: No . H ome smoke detector use: yes. Marital Status: . Alcohol: Yes, occasionally drinks wine. * Allergies: N .K.D.A. Objective: * Vitals: Assessment: Plan: * Treatment: * Images: Billing Information: * Visit Code: * Procedure Codes: * Electronic signature of Tessa Giron MD on 09/18/2025 at 08:38 AM EST Sign off status: Pending * Provider: Russ Giron M.D. Date: 0 04/16/2025 Generated for Cyrus viera/Annabel/Jacquelineitting on: 11/19/2024 08:38 AM EST History and Physical Notes * HPI (History of Present Illness) Category Sub-Category Detail Notes Category Not es HPI Here for follow up on: 5 LT hip MRI, see pt docs for report
--- OUTSIDE RECORDS SUMMARY | 2025-05-31 05:00 | XMS_ITS ---
Author Organization Jose[facility]osa Isela Address [address] [facility] [address] [facility] [address] [place] [id number] Care Team Providers Care Software Sales Representative Name Role Phone Sergio Giron Primary Care Provider Allergies No Known Allergies Results Component Value Reference Range Notes Urinalysis - Inhouse Reviewed date:05/31/2025 11:20:52 PM Interpretation: Performing Lab: Notes/Report: Color/Clarity yellow/clear Leuk Neg Nitrite Neg Urobili 3.2 Protein Neg pH 5.5 Blood Neg Sp. Gr. 1.020 Ketone Neg Bili Neg Gluc Neg REASON FOR VISIT check for UTI for hip surgery Medications Medication SIG (Take, Route, Frequency, Duration) Notes Start Date End Date Status Celecoxib 200 mg 1 capsule with food Orally once daily; Duration: 90 days Unknown Baclofen 10 MG 1 tablet as needed O rally Twice a day 05/31/2025 Active Wegovy 1 MG/0.5ML 0.5 mL Subcutaneous weekly 04/09 Unknown amLODIPine Besylate 5 MG 1 tablet Orally Once a day as needed 04/27/2023 Unknown Vital Signs Weight 0 lbs 05/31/2025 Blood pressure systolic 132 mm Hg 05/31/20 25 Blood pressure diastolic 80 mm Hg 025 Heart Rate 66 /min 05/31/2025 Height 63 in 05/31/2025 Encounters Encounter Location Date Provider Diagnosis Jennifer [facility] [address] [place] [id number] 05/31/2025 Sergio Giron Recent urinary tract infection Z87.440 and Other chronic pain G89.29 Assessments Encounter Date Diagnosis (ICD Code) Assessment Notes Treatment Notes Treatment Clinical Notes Section Notes 05/31/2025 Recent urinary tract infection (ICD-10 - Z87.440) 05/31/2025 Other chronic pain (ICD-10 - G89.29) Plan Of Treatment Medication Medication Name Sig Start Date Stop Date Notes Baclofen 10 MG 1 tablet as needed Orally Twice a day 05/31 Baclofen 5 MG 1 tablet Orally twice a day Next Appt Details Follow Up: prn, Reason: Provider Name:Segrio Olmedo ry, 02/04/2026 09:00:00 AM, [address], [place], [id number], Progress Notes * Shawna MAOEDOB:0 1950 (75 yo F)Acc No.[id number]:05/31/2025 Progress Notes Patient: Shawna STOCKTON Provider: Russ Giron M.D. :1950 A ge:74 Y S ex:Female Date:05/31/2025 Address:[address] [place] [address], [id number] Subjective: * Chief Complaints: * 1 . check for UTI for hip surgery. * HPI: U rology: 74 year old female presents with c/o frequent urination P t complains of frequent urination and states she does not have any other symptoms at this time. Pt scheduled for LT hip replacement on 06/18 and wants to make sure she does not have a UTI . * ROS: C ARDIOLOGY: no D izziness. n o C hest pain. D ERMATOLOGY: no R jeni. n o H shea. G ASTROENTEROLOGY: no N ausea. n o V omiting. * Medical History: H yperlipidemia, Sciatica, COUNCILPERSON - Severo Arevalo, Hypertension, Lumbar facet arthropathy, [...] Alcohol: Yes, occasionally drinks wine. * Medications: U nknown Celecoxib 200 mg Capsule 1 capsule with food Orally once daily , Unknown amLODIPine Besylate 5 MG Tablet 1 tablet Orally Once a day as needed , Unknown Baclofen 5 MG Tablet 1 tablet Orally twice a day As needed, Unknown Wegovy 1 MG/0.5ML Solution Auto-injector 0.5 mL Subcutaneous weekly , Medication List reviewed and reconciled with the patient * Allergies: N .K.D.A. Objective: * Vitals: W t: 0, Temp: 97.8, BP: 132/80, HR: 66, Nurse: LIVIA, Ht: 63. * Examination: G eneral Examination: General Appearance: N AD, using a cane to assist with ambulation. H eart: R SR. L ungs: c lear to auscultation. Assessment: * Assessment: 1. R ecent urinary tract infection - Z87.440 (Primary) 2 . O ther chronic pain - G89.29 Plan: * Treatment: Value Reference Range C olor/Clarity yellow/clear * L euk Neg * N itrite Neg * U robili 3.2 * P rotein Neg * p H 5.5 * B lood Neg * S p. Gr. 1.020 * K etone Neg * B sienna Neg * G reese Neg * Tanisha Taveras 05/31/2025 10:06:4 7 AM EDT > Provider reviewed results while patient in office.Sergio Giron 05/31/2025 11:20:48 PM EDT > 2.?Other chronic pain? Stop Baclofen Tablet, 5 MG, 1 tablet, Orally, twice a day As needed;?Start Baclofen Tablet, 10MG, 1 tablet as needed, Orally, Twice a day, 60, Refills 1.?? * Procedure Codes: G 2211 Complex e/[place], [address] Urinalysis, no micro * Follow Up: p rn * Images: Billing Information: * Visit Code: 40269 Office Visit, Est Pt., Level 3. * Procedure Codes: G2211 Complex e/[place]. [address] Urinalysis, no micro. * Electronic signature of Tessa Giron MD on 09/18/2025 at 08:39 AM EST Sign off status: Pending * Provider: Russ Giron M.D. Date: 0 05/31/2025 Generated for Cyrus viera/Annabel/Jacquelineitting on: 1 11/19/2024 08:39 AM EST History and Physical Notes * HPI (History of Present Illness) Category Sub-Category Detail Notes Category Not es Urology frequent urination Pt complains of frequent urination and states she does not have any other symptoms at this time. Pt scheduled for LT hip replacement on 06/18 and wants to make sure she does not have a UTI Examination Category Sub-Category Detail Notes Category Not es General Examination Heart: RSR Lungs: clear to auscultatio n General Appearance: NAD, using a cane to assist with ambulation
--- OUTSIDE RECORDS SUMMARY | 2025-07-24 09:52 | XMS_ITS | Encounter Summary ---
Author Organization [facility] Address [address] [id number] Care Team Providers Care Ortho Assistant Name Role Phone Sergio Giron MD Primary Care Provider + [phone] Encounter Details Date Type Department Care Team (Latest Contact Info) Description 07/24/2025 10:52 AM EDT - 07/24/2025 11:59 PM EDT Hospital Encounter Medical Office Building Radiology [address] [place] [id number] S/P total left hip arthroplasty Discharge Disposition: Home or Self Care Social History Tobacco Use Types Packs/Day Years Used Date Smoking Tobacco: Former Cigarettes 0.3 9 0 09/27/1965 - 09/27/1974 Passive Smoke Exposure: Never Smokeless Tobacco: Never Alcohol Use Standard Drinks/Week Comments Yes 1 (1 standard drink = 0.6 oz pur e alcohol) DRINKS 3-4 DRINKS PER WEEK Comments No Sex and Gender Information Value Date Recorded Sex Assigned at Not on file Legal Sex Female 7:41 PM EDT Gender Identity Not on file Sexual Orientation Not on file documented as of this encounter Medications at Time of Discharge acetaminophen (Tylenol Extra Strength) 500 MG tablet Take 2 tablets by mouth every 8 hours. 100 tablet 07/09/2025 amLODIPine (Norvasc) 5 MG tablet Take 1 tablet by mouth daily. baclofen (Lioresal) 10 MG tablet Take 1 tablet by mouth 2 times a day as needed for muscle spasms. As needed 12/21/2024 celecoxib (CeleBREX) 200 MG capsule Take 1 capsule by mouth daily. gabapentin (Neurontin) 100 MG capsule Take 1 capsule by mouth 3 times a day. If this medication makes you drowsy you may take it only at bedtime 30 capsule 06/12/2025 naloxone (Narcan) 4 mg/0.1 mL nasal spray 1. Give 1 spray in nostril for no/slow breathing or cannot wake after opioid use 2. Call 911 3. Repeat in other nostril if symptoms continue 1 each 06/12/2025 omeprazole (PriLOSEC) [address] capsule Take 1 capsule by mouth daily. Do not crush or chew. 28 capsule 3 07/24/2025 oxyCODONE (Roxicodone) 5 MG immediate release tablet Take 1 tablet by mouth every 6 hours as needed for severe pain. 30 tablet 06/11/2025 traMADol (Ultram) 50 MG tablet Take 1 tablet by mouth every 6 hours as needed for moderate pain. Take 1 or 2 tablets every 4-6 hours as needed for moderate pain 56 tablet 06/12/2025 documented as of this encounter Plan of Treatment Not on file documented as of this encounter Goals Goal Patient Goal Type Associated Problems Recent Progress Patient-Stated? Author Autogenerat ed Goal Care Plan Autogenerated Problem No Ann-Marie Thompson Bartolome documented as of this encounter Procedures Procedure Name Priority Date/Time Associated Diagnosis Comments XR PELVIS 1 OR 2 VIEWS Routine 07/24/2025 10:57 AM EDT S/P total left hip arthroplasty documented in this encounter Results * XR Pelvis 1 or 2 Views (07/24/2025 10:57 AM EDT) Anatomical Region Laterality Modality Body, Pelvis Digital Radiogra phy Impressions 07/24/2025 11:55 AM EDT Postsurgical changes as above described. CRITICAL RESULT: No. COMMUNICATION: Per this written report. Drafted by Jeffrey Pimentel MD on 07/24/2025 11:53 AM Final report signed by Jeffrey Pimentel MD on 07/24/2025 11:55 AM Narrative 07/24/2025 11:55 AM EDT CLINICAL INDICATION: post op TECHNIQUE: XR PELVIS 1 OR 2 VIEWS COMPARISON: June 11, 2025 FINDINGS: Single AP view was provided. Diffuse osteopenia. Redemonstration of bilateral hip replacement. No obvious hardware complications. Grossly unchanged degenerative changes in the pubic symphysis, sacroiliac joints and lower lumbar spine. Procedure Note Jeffrey Flores MD - 07/24/2025 CLINICAL INDICATION: post op TECHNIQUE: XR PELVIS 1 OR 2 VIEWS COMPARISON: June 11, 2025 FINDINGS: Single AP view was provided. Diffuse osteopenia. Redemonstration of bilateral hip replacement. No obvious hardwarecomplications. Grossly unchanged degenerative changes in the pubic symphysis, sacroiliacjoints and lower lumbar spine. IMPRESSION: Postsurgical changes as above described. CRITICAL RESULT: No. COMMUNICATION: Per this written report. Drafted by Jeffrey Pimentel MD on 07/24/2025 11:53 AM Final report signed by Jeffrey Pimentel MD on 1:55 AM Isidra GOODE IMG XR PROCEDURES Final Resul t documented in this encounter Visit Diagnoses Diagnosis S/P total left hip arthroplasty documented in this encounter Additional Health Concerns Active Problems Noted Date Diagnosed Date Autogenerated Problem 06/12/2025 Assessment Noted Time A fall risk assessment has been complete d for the patient 07/24/2025 11:03 AM EDT A Body Mass Index follow-up plan has been documented for the patient 07/24/2025 11:41 AM EDT documented as of this encounter Care Teams Ortho Assistant Relationship Specialty Start Date End Date Sergio Giron MD [address] [place] [address] PCP - General 04/20/25 documented as of this encounter
--- OUTSIDE RECORDS SUMMARY | 2025-07-24 10:20 | XMS_ITS | Encounter Summary ---
Author Organization [facility] Address [address] [id number] Care Team Providers Care Gate Shear Operator Name Role Phone Sergio Giron MD Primary Care Provider + [phone] Reason for Visit * Reason Comments Follow-up Encounter Details Date Type Department Care Team ([facility] st Contact Info) Description 07/24/2025 11:20 AM EDT Office Visit Medical Office Building [facility] [address], [address] [place] [address] Drew Beverly MD [address] [place] [address] S/P total left hip arthroplasty (Primary Dx) Social History Tobacco Use Types Packs/Day Years Used Date Smoking Tobacco: Former Cigarettes 0.3 9 0 09/27/1965 - 09/27/1974 Passive Smoke Exposure: Never Smokeless Tobacco: Never Tobacco Cessation:Counseling Given: Not Answered Alcohol Use Standard Drinks/Week Comments Yes 1 (1 standard drink = 0.6 oz pur e alcohol) DRINKS 3-4 DRINKS PER WEEK Comments No Sex and Gender Information Value Date Recorded Sex Assigned at Not on file Legal Sex Female 7:41 PM EDT Gender Identity Not on file Sexual Orientation Not on file documented as of this encounter Last Filed Vital Signs Vital Sign Reading Time Taken Comments Blood Pressure 139/82 07/24/2025 11:01 AM EDT Pulse 73 07/24/2025 11:01 AM EDT Temperature - - Respiratory Rate - - Oxygen Saturation 97% 07/24/2025 11:01 AM EDT Inhaled Oxygen Concentration - - Weight 93.2 kg (205 lb 7.5 oz) 07/24/2025 11:01 AM EDT Height - - Body Mass Index 35.27 06/26/2025 11:09 AM EDT documented in this encounter Miscellaneous Notes * Progress Notes - Drew Beverly MD - 07/24/2025 11:20 AM EDT 75-year-old returns following left anterior total hip arthroplasty. At this point patient is doing well and very pleased with the results. On exam per her report incisions well healed. Leg lengths are equal in the seated position. No limp with ambulation. Radiographs demonstrate implants are in good position with a signs of loosening or subsidence. This point she can be activity as tolerated. Seeher back in 10 years for repeat evaluation with x-rays. documented in this encounter Plan of Treatment Not on file documented as of this encounter Goals Goal Patient Goal Type Associated Problems Recent Progress Patient-Stated? Author Autogenerat ed Goal Care Plan Autogenerated Problem No Ann-Marie Thompson documented as of this encounter Visit Diagnoses Diagnosis S/P total left hip arthroplasty- Primary documented in this encounter Additional Health Concerns Active Problems Noted Date Diagnosed Date Autogenerated Problem 06/12/2025 Assessment Noted Time A fall risk assessment has been complete d for the patient 07/24/2025 11:03 AM EDT A Body Mass Index follow-up plan has been documented for the patient 07/24/2025 11:41 AM EDT documented as of this encounter Care Teams Gate Shear Operator Relationship Specialty Start Date End Date Sergio Giron MD [address] [place] [address] PCP - General 04/20/25 documented as of this encounter
--- OUTSIDE RECORDS SUMMARY | 2025-08-06 04:00 | XMS_ITS ---
Author Organization [facility] Address [address] [place] [id number] Care Team Providers Care Air Traffic Control Specialist Name Role Phone Sergio Giron Primary Care Provider Allergies No Known Allergies Results Component Value Reference Range Notes P-Comprehensive Metabolic Pa dixon (CMP) Reviewed date:08/07/2025 09:45:48 AM Interpretation:Alk Phos 129 Performing Lab: Notes/Report: Test performed by [facility] , [address], [place] [address] Tino Richard MD, Upholstery Department Supervisor CLIA: [id number] Sodium 138 135-145 mmol/L Potassium 4.5 3.5-5.3 mmol/L Chloride 101 97-108 mmol/L CO2 27 20-32 mmol/L Glucose 95 65-99 mg/dL BUN 20 8-23 mg/dL Creatinine 0.78 0.50-1.00 mg/dL Calcium 9.9 8.6-10.4 mg/dL eGFR by Creatinine 79 >59 mL/min/1.73m2 Protein 7.1 6.0-8.3 g/dL Albumin 4.4 3.5-5.3 g/dL Alkaline Phosphatase 129 35-121 IU/L ALT (SGPT) 19 <5-47 IU/L AST (SGOT) 20 <5-40 IU/L Bilirubin, Total 0.7 <0.2-1.2 mg/dL A/G Ratio 1.6 1.1-2.5 P-Lipid Panel Reviewed date:08/07/2025 09:45:48 AM Interpretation:TC 228, Non-HDL 140, LDL 122 Performing Lab: Notes/Report: Test performed by [facility], [address] [place] , [place] [address] Tino Richard MD, Upholstery Department Supervisor CLIA: [id number] Lipid Panel Footnote See Below *Based on optimal reference values. Please refer to the DOS for additional information regarding diagnostic lipid reference ranges, patient management based on the recently updated lipid guidelines ([place] [employer]/[place] [employer] Association Task Force on Clinical Practice Guidelines (2018), and pediatric diagnostic lipid reference values (<18 years old). Total Cholesterol 228 <200 mg/dL Triglycerides 92 <150 mg/dL HDL Cholesterol 88 >50 mg/dL Total Cholesterol / HDL Ratio* 2.59 <3.99 Rati o Non-HDL Cholesterol 140 <130 mg/dL LDL Cholesterol (Calculation) 122 <100 mg/dL LDL / HDL Ratio* 1.38 <1.99 Ratio LDL Cholesterol Patient History Test Date: 08/07/2024 LDL Results: 130 Units: mg/dL % Change: - Test Date: 08/06/2025 LDL Results: 122 Units: mg/dL % Change: -6% P-TSH reflex to FT4 Reviewed date:08/07/2025 09:45:48 AM Interpretation:Normal Performing Lab: Notes/Report: Test performed by [facility] [address] , [address], [place] [address] Tino Richard MD, Upholstery Department Supervisor CLIA: [id number] TSH reflex to FT4 2.46 0.43-5.25 mU/L P-Microalbumin/Creatinine, R andom Urine Sample Reviewed date:08/07/2025 09:45:48 AM Interpretation:Normal Performing Lab: Notes/Report: Test performed by [facility] [address] [place] [address] , [address], [place] [address] Tino Richard MD, Upholstery Department Supervisor CLIA: [id number] Albumin/Creatinine Ratio, Urine 12 0-30 ug/mg Microalbumin, Urine, Random 1.8 Creatinine, Urine 155.6 P-Uric Acid Reviewed date:08/07/2025 09:45:48 AM Interpretation:Normal Performing Lab: Notes/Report: Test performed by [facility] [address] , [address], [place] [address] Tino Richard MD, Upholstery Department Supervisor CLIA: [id number] Uric Acid 5.6 2.4-7.0 mg/dL REASON FOR VISIT 6 month f/u Medications Medication SIG (Take, Route, Frequency, Duration) Notes Start Date End Date Status Baclofen 10 MG 1 tablet as needed O rally Twice a day 05/31/2025 Active Wegovy 1 MG/0.5ML 0.5 mL Subcutaneous weekly 04/09 Active Omeprazole 10 MG 1 capsule 1/2 to 1 h our before morning meal Orally Once a day Active amLODIPine Besylate 5 MG 1 tablet Orally Once a day as needed Active Celecoxib 200 mg 1 capsule with food Orally once daily; Duration: 90 days Active Vital Signs Weight 205.8 lbs 08/06/2025 Blood pressure systolic 134 mm Hg 11/10/20 25 Blood pressure diastolic 80 mm Hg 025 Heart Rate 73 /min 08/06/2025 Height 63 in 08/06/2025 BMI 36.45 kg/m2 08/06/2025 Encounters Encounter Location Date Provider Diagnosis [facility] Isela [address] [place] [id number] 08/06/2025 Sergio Giron Primary hypertension I10 ; Pure hypercholesterolemia E78.00 ; Chronic gout of foot, unspecified cause, unspecified laterality M1A.0790 ; Non morbid obesity E66.9 and Chronic heartburn R12 Assessments Encounter Date Diagnosis (ICD Code) Assessment Notes Treatment Notes Treatment Clinical Notes Section Notes 08/06/2025 Primary hypertension (ICD-10 - I10) 08/06/2025 Pure hypercholesterolemia (ICD-10 - E78.00) 08/06/2025 Chronic gout of foot , unspecified cause, unspecified laterality (ICD-10 - M1A.0790) 08/06/2025 Non morbid obesity (ICD-10 - E66.9) 08/06/2025 Chronic heartburn (ICD-10 - R12) Plan Of Treatment Medication Medication Name Sig Start Date Stop Date Notes Wegovy 1 MG/0.5ML 0.5 mL Subcutaneous weekly 04/09/2025 Omeprazole 10 MG 1 capsule 1/2 to 1 h our before morning meal Orally Once a day amLODIPine Besylate 5 MG 1 tablet Orally Once a day as needed Next Appt Details Follow Up: 6 Months, Reason: Provider Name:Sergio Olmedo , 02/04/2026 09:00:00 AM, [facility] [address], [address], [place], [place], [id number], Progress Notes * Shawna MAOEDOB:0 1950 (75 yo F)Acc No.[id number]:08/06/2025 Progress Notes Patient: Shawna STOCKTON Provider: Russ Giron M.D. :1950 A ge:75 Y S ex:Female Date:08/06/2025 Address:[address] [place] [address], [place] Subjective: * Chief Complaints: * 1 . 6 month f/u. * HPI: C ardiology: 75 year old female presents with c/o Blood Pressure Elevated?Pt here for 6 month followup Hypertension. Pt states she is doing well and has no concerns at this time. c/o Hyperlipidemia P t is fasting today. 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 * Surgical History: L umbar Laminectomy, Mesial Facetectomy L3-L4, L4-L5, Left 01/10/2025, LT Hip Replacement 2024, RT Hip Replacement 2020. * Hospitalization/Major Diagno stic Procedure: D enies Past Hospitalization. * Family History: F ather: . M other: . * Social History: C URRENT TOBACCO USE: No . H ome smoke detector use: yes. Marital Status: . Alcohol: Yes, occasionally drinks wine. * Medications: T aking Omeprazole 10 MG Capsule Delayed Release 1 capsule 1/2 to 1 hour before morning meal Orally Once a day , Taking Baclofen 10 MG Tablet 1 tablet as needed Orally Twice a day , Taking Celecoxib 200 mg Capsule 1 capsule with food Orally once daily , Taking amLODIPine Besylate 5 MG Tablet 1 tablet Orally Once a day as needed , Unknown Wegovy 1 MG/0.5ML Solution Auto-injector 0.5 mL Subcutaneous weekly , Medication List reviewed and reconciled with the patient * Allergies: N .K.D.A. Objective: * Vitals: W t: 205.8, Temp: 97.9, BP: 134/80, HR: 73, Nurse: SF, Ht: 63, BMI:36.45. * Examination: C ardiology: General Appearance: p leasant, NAD. H EENT: u nremarkable. H eart sounds: R RR, normal S1, S2. L ungs: c lear, no rales or wheezes.?Extremities: n o leg edema. P eripheral pulses: 2 plus bilateral. ? Assessment: * Assessment: 1. P rimary hypertension - I10 (Primary) 2 . P ure hypercholesterolemia - E78.00 3 . C hronic gout of foot, unspecified cause, unspecified laterality - M1A.0790 4 . N on morbid obesity - E66.9 5 . C hronic heartburn - R12 Plan: * Treatment: Value Reference Range A /G Ratio 1.6 1.1-2.5 - * A lbumin 4.4 3.5-5.3 - g/dL * A lkaline Phosphatase 129 H 35-121 - IU/L * A LT (SGPT) 19 <5-47 - IU/L * A ST (SGOT) 20 <5-40 - IU/L * B ilirubin, Total 0.7 <0.2-1.2 - mg/dL * B UN 20 8-23 - mg/dL * C alcium 9.9 8.6-10.4 - mg/dL * C hloride 101 97-108 - mmol/L * C O2 27 20-32 - mmol/L * C reatinine 0.78 0.50-1.00 - mg/dL * G lucose 95 65-99 - mg/dL * P otassium 4.5 3.5-5.3 - mmol/L * S odium 138 135-145 - mmol/L * P rotein 7.1 6.0-8.3 - g/dL * e GFR by Creatinine 79 >59 - mL/min/1.73m2 * Sydney Enciso 08/07/2025 09 :45:40 AM EST > See phone encounter ?LAB: P-Microalbumin/Creatinine, Random Urine Sample (Collection Date & Time - 08/06/2025 08:46 AM)?Normal* Value Reference Range A lbumin/Creatinine Ratio, Urine 12 0-30 - ug /mg * C reatinine, Urine 155.6 - mg/dL * M icroalbumin, Urine, Random 1.8 - mg/dL * Sydney Enciso 08/07/2025 09 :45:40 AM EST > See phone encounter 2.?Pure hypercholesterolemia?LAB: P-Comprehensive Metabolic Panel (CMP) (Collection Date & Time - 08/06/2025 08:46 AM)?Alk Phos 129* Value Reference Range A /G Ratio 1.6 1.1-2.5 - * A lbumin 4.4 3.5-5.3 - g/dL * A lkaline Phosphatase 129 H 35-121 - IU/L * A LT (SGPT) 19 <5-47 - IU/L * A ST (SGOT) 20 <5-40 - IU/L * B ilirubin, Total 0.7 <0.2-1.2 - mg/dL * B UN 20 8-23 - mg/dL * C alcium 9.9 8.6-10.4 - mg/dL * C hloride 101 97-108 - mmol/L * C O2 27 20-32 - mmol/L * C reatinine 0.78 0.50-1.00 - mg/dL * G lucose 95 65-99 - mg/dL * P otassium 4.5 3.5-5.3 - mmol/L * S odium 138 135-145 - mmol/L * P rotein 7.1 6.0-8.3 - g/dL * e GFR by Creatinine 79 >59 - mL/min/1.73m2 * Sydney Enciso 08/07/2025 09 :45:40 AM EST > See phone encounter ?LAB: P-Lipid Panel (Collection Date & Time - 08/06/2025 08:46 AM)?TC 228, Non-HDL 140, LDL 122* Value Reference Range C holesterol / HDL Ratio 2.59 <3.99 - Ratio * C holesterol 228 H <200 - mg/dL * H DL Cholesterol 88 >50 - mg/dL * L DL Cholesterol (Calculation) 122 H <100 - mg/d L * L DL/HDL Ratio 1.38 <1.99 - Ratio * N on-HDL Cholesterol 140 H <130 - mg/dL * T riglycerides 92 <150 - mg/dL * L ipid Panel Footnote See Below - * Sydney Enciso 08/07/2025 09 :45:40 AM EST > See phone encounter ?LAB: P-TSH reflex to FT4 (Collection Date & Time - 08/06/2025 08:46 AM)? Normal* Value Reference Range T SH reflex to FT4 2.46 0.43-5.25 - mU/L * Sydney Enciso 08/07/2025 09 :45:40 AM EST > See phone encounter 3.?Chronic gout of foot, unspecified cause, unspecified laterality?LAB: P-Uric Acid (Collection Date & Time - 08/06/2025 08:46 AM)?Normal* Value Reference Range U mikie Acid 5.6 2.4-7.0 - mg/dL * Sydney Enciso 08/07/2025 09 :45:40 AM EST > See phone encounter 4.?Non morbid obesity? Continue Wegovy Solution Auto-injector, 1 MG/0.5ML, 0.5 mL, Subcutaneous, weekly.??5.?Chronic heartburn? Continue Omeprazole Capsule Delayed Release, 10 MG, 1 capsule 1/2 to 1 hour before morning meal, Orally, Once a day.?? * Procedure Codes: G 2211 Complex e/m visit add on, G8950 PREHTN/HTN BP DOC INDCD F/U DOC, G8752 MOST RECENT SYSTOLIC BP < 140MM HG, G8754 MOST RECENT DIASTOLIC BP < 90MM HG, 3075F SYST BP GE 130 - 139MM HG, 3079F DIAST BP 80-89 MM HG * Follow Up: 6 Months * Images: Billing Information: * Visit Code: 99007 Office Visit, Est Pt., Level 4. * Procedure Codes: G2211 Complex e/m visit add on. G8950 PREHTN/HTN BP DOC INDCD F/U DOC. G8752 MOST RECENT SYSTOLIC BP < 140MM HG. G8754 MOST RECENT DIASTOLIC BP < 90MM HG. 3075F SYST BP GE 130 - 139MM HG. 3079F DIAST BP 80-89 MM HG. * Electronic signature of Tessa Giron MD on 09/18/2025 at 08:38 AM EST Sign off status: Pending * Provider: Russ Giron M.D. Date: 1 10/06/2024 Generated for Cyrus viera/Annabel/Jack on: 11/19/2024 08:38 AM EST History and Physical Notes * HPI (History of Present Illness) Category Sub-Category Detail Notes Category Not es Cardiology Blood Pressure Elevated Pt here for 6 month followup Hypertension. Pt states she is doing well and has no concerns at this time Hyperlipidemia Pt is fasting today Examination Category Sub-Category Detail Notes Category Not es Cardiology Lungs: clear, no rales or wheezes HEENT: unremarkable Heart sounds: RRR, normal S1, S2 Extremities: no leg edema Peripheral pulses: 2 plus bilateral General Appearance: pleasant, NAD
--- OUTSIDE RECORDS SUMMARY | 2025-09-10 06:15 | XMS_ITS ---
Author Organization [place] Address [address] [facility] [address] [place] [id number] Care Team Providers Care Supervisor Core Shop Name Role Phone Sergio Giron Primary Care Provider Allergies No Known Allergies Results Component Value Reference Range Notes X ray : Knee, left Reviewed date:09/11/2025 12:05:27 PM Interpretation:Degenerative/Chronic Changes Performing Lab: Notes/Report: Degenerative/Chronic Changes REASON FOR VISIT LT knee Medications Medication SIG (Take, Route, Frequency, Duration) Notes Start Date End Date Status amLODIPine Besylate 5 MG 1 tablet Orally Once a day as needed Active Omeprazole 10 MG 1 capsule 1/2 to 1 h our before morning meal Orally Once a day Active Wegovy 1 MG/0.5ML 0.5 mL Subcutaneous weekly 04/09 Active Baclofen 10 MG 1 tablet as needed O rally Twice a day 05/31/2025 Active Celecoxib 200 mg 1 capsule with food Orally once daily; Duration: 90 days Active Vital Signs Blood pressure systolic 142 mm Hg 09/10/20 25 Blood pressure diastolic 84 mm Hg 025 Heart Rate 77 /min 09/10/2025 Height 63 in 09/10/2025 Encounters Encounter Location Date Provider Diagnosis Jennifer [address] [facility] [address] [place] [phone] 09/10/2025 Sergio Giron Pain in left knee M25.562 Assessments Encounter Date Diagnosis (ICD Code) Assessment Notes Treatment Notes Treatment Clinical Notes Section Notes 09/10/2025 Pain in left knee (ICD-10 - M25.562) Patient will likely need an MRI Plan Of Treatment Treatment Notes Assessment Notes Pain in left knee Patient will likely need an MRI Next Appt Details Follow Up: via phone to repo rt test results, Reason: Provider Name:Sergio Olmedo ry, 02/04/2026 09:00:00 AM, [address], [address], [place], [place], [id number], Progress Notes * Shawna MAOOB:0 1950 (75 yo F)Acc No.[id number]:09/10/2025 Progress Notes Patient: Shawna STOCKTON Provider: Russ Giron M.D. :1950 A ge:75 Y S ex:Female Date:09/10/2025 Address:[address] [place] [address], [id number] Subjective: * Chief Complaints: * 1 . LT knee. * HPI: K nee/Doss: 75 year old female presents with c/o knee pain P t complains of lt knee pain for a while . Pt states that pain gets so bad at times that it takes her breath away and she is not sure if she can walk on it. 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 * Medications: T aking Baclofen 10 MG Tablet 1 tablet as needed Orally Twice a day , Taking Celecoxib 200 mg Capsule 1 capsule with food Orally once daily , Taking amLODIPine Besylate 5 MG Tablet 1 tablet Orally Once a day as needed , Taking Omeprazole 10 MG Capsule Delayed Release 1 capsule 1/2 to 1 hour before morning meal Orally Once a day , Taking Wegovy 1 MG/0.5ML Solution Auto-injector 0.5 mL Subcutaneous weekly , Medication List reviewed and reconciled with the patient * Allergies: N .K.D.A. Objective: * Vitals: W t: Not Taken - Declined by Patient, Temp: 98.0, BP: 142/84, HR: 77, Nurse: issac, Ht: 63. * Examination: G eneral Examination: General Appearance: N AD. K nee / Doss: Knee: l eft. P alpation: t enderness on medial jointline. R alberto of motion: n ormal flexion and extension. M cmurray: b orderline positive m edially. P atellofemoral joint: n o crepitations. Assessment: * Assessment: 1. P ain in left knee - M25.562 (Primary) Plan: * Treatment: Notes: Patient will likely need an MRI?? * Procedure Codes: G 2211 Complex e/m visit add on * Follow Up: v ia phone to report test results * Images: Billing Information: * Visit Code: 43474 Office Visit, Est Pt., Level 3. * Procedure Codes: G2211 Complex e/m visit add on. * Electronic signature of Tessa Giron MD on 09/18/2025 at 08:39 AM EST Sign off status: Pending * Provider: Russ Giron M.D. Date: 11/11/2024 Generated for Cyrus virea/Annabel/Jacquelineitting on: 11/19/2024 08:39 AM EST History and Physical Notes * HPI (History of Present Illness) Category Sub-Category Detail Notes Category Not es Knee/Doss knee pain Pt complains of lt knee pain for a while . Pt states that pain gets so bad at times that it takes her breath away and she is not sure if she can walk on it Examination Category Sub-Category Detail Notes Category Not es General Examination General Appearance: NAD Knee / Doss Sumit: borderline positive medially Patellofemoral joint: no crepitations Palpation: tenderness on medial jointline Knee: left Range of motion: normal flexion and e xtension
--- OUTSIDE RECORDS SUMMARY | 2025-09-11 07:04 | XMS_ITS ---
Author Organization [facility] Address [address] [facility] [address] [facility] [address] [place] [id number] Care Team Providers Care Tile And Marble Installer Name Role Phone Sergio Giron Primary Care Provider REASON FOR VISIT X-Ray Results* Encounters Encounter Location Date Provider Diagnosis Jose[facility]Rosa Isela [address] [facility] [address] [place] [phone] 09/11/2025 Sergio Mack Pain in left knee M25.562 and Positive Vero test of left knee, initial encounter S83.207A Assessments Encounter Date Diagnosis (ICD Code) Assessment Notes Treatment Notes Treatment Clinical Notes Section Notes 09/11/2025 Pain in left knee (ICD-10 - M25.562) 09/11/2025 Positive Vreo test of left knee, initial encounter (ICD-10 - S83.207A) Plan Of Treatment Pending Test Test Name Order Date MRI : Knee, left, without contrast 09/11 Next Appt Details Provider Name:Sergio Olmedo ry, 02/04/2026 09:00:00 AM, [address], [address], [place], [id number], Progress Notes * Shawna MAOEDOB:0 1950 (75 yo F)Acc No.[id number]:09/11/2025 Patient: Shawna STOCKTON :1950 A ge:75 Y S ex:Female Address:[address] [place] [address] [facility] [address], [place] [address] Subjective: * Chief Complaints: * X -Ray Results* * Medical History: * Surgical History: * Hospitalization/Major Diagno stic Procedure: * Medications: Objective: * Vitals: * Physical Examination: Assessment: * Assessment: 1. P ain in left knee - M25.562 (Primary) 2 . P ositive Vero test of left knee, initial encounter - S83.207A Plan: * Treatment: * Procedure Codes: * true * Date: Generated for Cyrus viera/Annabel/Jacquelineitting on: 11/19/2024 08:38 AM EST
--- OUTSIDE RECORDS SUMMARY | 2025-09-18 08:38 | XMS_ITS | Encounter Summary ---
Author Organization [facility] Address [address] [place] [address] Care Team Providers Care Shift Supervisor Melting Name Role Phone Sergio Giron MD Primary Care Provider + [phone] Encounter Details Date Type Department Care Team (Latest Contact Info) Description 07/24/2025 Travel Social History Tobacco Use Types Packs/Day Years [...] on file documented as of this encounter Plan of Treatment Not on file documented as of this encounter Goals Goal Patient Goal Type Associated Problems Recent Progress Patient-Stated? Author Autogenerat ed Goal Care Plan Autogenerated Problem No Ann-Marie Thompson documented as of this encounter Visit Diagnoses Not on filedocumented in this encounter Additional Health Concerns Active Problems Noted Date Diagnosed Date Autogenerated Problem 06/12/2025 Assessment Noted Time A fall risk assessment has been complete d for the patient 07/24/2025 11:03 AM EDT A Body Mass Index follow-up plan has been documented for the patient 07/24/2025 11:41 AM EDT documented as of this encounter Care Teams Shift Supervisor Melting Relationship Specialty Start Date End Date Sergio Giron MD [address] [place] [address] PCP - General 04/20/25 documented as of this encounter
--- OUTSIDE RECORDS SUMMARY | 2025-09-18 08:38 | XMS_ITS | Clinical Summary ---
Author Organization [facility] Address [address] [place] [address] Care Team Providers Care Rock Lather Name Role Phone Sergio Giron MD Primary Care Provider + [phone] Allergies No known active allergies Medications amLODIPine (Norvasc) 5 MG tablet Take 1 tablet by mouth daily. Active baclofen (Lioresal) 10 MG tablet Take 1 tablet by mouth 2 times a day as needed for muscle spasms. As needed Active celecoxib (CeleBREX) 200 MG capsule Take 1 capsule by mouth daily. Active oxyCODONE (Roxicodone) 5 MG immediate release tablet Take 1 tablet by mouth every 6 hours as needed for severe pain. 30 tablet 5 Active Additional Information Patient not taking.Reported on 07/24/2025 gabapentin (Neurontin) 100 MG capsule Take 1 capsule by mouth 3 times a day. If this medication makes you drowsy you may take it only at bedtime 30 capsule 5 Active Additional Information Patient not taking.Reported on 07/24/2025 traMADol (Ultram) 50 MG tablet Take 1 tablet by mouth every 6 hours as needed for moderate pain. Take 1 or 2 tablets every 4-6 hours as needed for moderate pain 56 tablet 5 Active Additional Information Patient not taking.Reported on 07/24/2025 naloxone (Narcan) 4 mg/0.1 mL nasal spray 1. Give 1 spray in nostril for no/slow breathing or cannot wake after opioid use 2. Call 911 3. Repeat in other nostril if symptoms continue 1 each Active Additional Information Patient not taking.Reported on 07/24/2025 acetaminophen (Tylenol Extra Strength) 500 MG tablet Take 2 tablets by mouth every 8 hours. 100 tablet Active omeprazole (PriLOSEC) [address] capsule Take 1 capsule by mouth daily. Do not crush or chew. 28 capsule 3 5 11/13/19 26 Active Active Problems Problem Noted Date Diagnosed Date Arthritis of left hip 04/26/2025 Encounters Date Type Department Care Team Description 07/24/2025 11:20 AM EDT Office Visit Medical Office Building [facility] [address], [address] [place] [address] Drew Beverly MD S/P total left hip arthroplasty (Primary Dx) 07/24/2025 10:52 AM EDT - 07/24/2025 11:59 PM EDT Hospital Encounter Medical Office Building Radiology [address] [place] [address] S/P total left hip arthroplasty Discharge Disposition: Home or Self Care 07/24/2025 Travel 07/17/2025 Travel 07/09/2025 Refill Medical Office Building [facility] [address], [address] [place] [address] Drew Beverly MD 06/26/2025 11:20 AM EDT Office Visit Medical Office Building [facility] [address] [facility], [address] [place] [address] Isidra Rosales PA S/P total left hip arthroplasty (Primary Dx) 06/26/2025 Travel 2025 Travel from Last 3 Months Family History Medical History Relation Name Comments Anesthesia problems Neg Hx Malig Hyperthermia Neg Hx Social History Tobacco Use Types Packs/Day Years [...] on file Sexual Orientation Not on file Last Filed Vital Signs Vital Sign Reading Time Taken Comments Blood Pressure 139/82 07/24/2025 11:01 AM EDT Pulse 73 07/24/2025 11:01 AM EDT Temperature 36.3 C (97.4 F) 06/12/2025 11:05 AM EDT Respiratory Rate 14 06/12/2025 7:00 AM EDT Oxygen Saturation 97% 07/24/2025 11:01 AM EDT Inhaled Oxygen Concentration - - Weight 93.2 kg (205 lb 7.5 oz) 07/24/2025 11:01 AM EDT Height 162.6 cm (5' 4 ) 06/26/2025 11:09 AM EDT Body Mass Index 35.27 06/26/2025 11:09 AM EDT Plan of Treatment Health Maintenance Due Date Last Done Comments [facility]-Bone Density Scan 1950 [facility]-Depression Screening 1949 [facility]-Hepatitis C Screening 1950 [facility]-Medicare Annual Wellness (AWV) 1950 [facility]-/Child/Adol SDOH Screenings 1949 [facility]- SDOH Screenings 1967 [facility]-Adult SDOH Screenings 1967 [facility]-DTaP,Tdap,and Td Vaccines (1 - Tdap) 1968 [facility]-Pneumococcal Vaccine: 50+ Years (1 of 2 - PCV) 1968 [facility]-Zoster Vaccines (1 of 2) 1999 [facility]-RSV Vaccine: 60+ Years or (1 - 1-dose 75+ series) 2024 [facility]-NPETU-18 Vaccine ( - season) 2025 08/16/2023, 07/24/2022, 09/10/2021, Additional history exists [facility]-Influenza Vaccine (#1) 2025 [facility]-Obesity Intervention Completed 025, 06/26/2025, 04/26/2025, Additional history exists HPV Vaccines (No Doses Required) Completed [facility]-HIB Vaccines Aged Out No longer e ligible based on patient's age to complete this topic [facility]-Hepatitis A Vaccines Aged Out No longer eligible based on patient's age to complete this topic [facility]-IPV Vaccines Aged Out No longer e ligible based on patient's age to complete this topic [facility]-Rotavirus Vaccines Aged Out No lo nger eligible based on patient's age to complete this topic Goals Goal Patient Goal Type Associated Problems Recent Progress Patient-Stated? Author Autogenerat ed Goal Care Plan Autogenerated Problem No Ann-Marie Thompson Medical Devices Implanted Type Area Patient Account Specialist Device Identifier Shelf Expiration Date Model / Serial / Lot Hip Hip Right: Hip Plate Plate Right: Wrist Chg Shell R3 3 Hole Acet 52mm - [id number] Implanted:Qty: 1 on 06/11/2025 by Drew Beverly MD at [facility] Left: Hip [employer]-[id number] 11/27/2034 [id number] / / [id number] Chg Screw Ref Spher Head 25mm - [id number] Implanted:Qty: 1 on 06/11/2025 by Drew Beverly MD at [facility] Left: Hip [employer]-[id number] 12/04/2034 [id number] / / [id number] Liner Or3o Dual Mbility 40 52 - [id number] Implanted:Qty: 1 on 06/11/2025 by Drew Beverly MD at [facility] Left: Hip [employer]-[id number] 01/16/2035 [id number] / / [id number] Chg Screw Ref Spher Head 35mm - [id number] Implanted:Qty: 1 on 06/11/2025 by Drew Beverly MD at [facility] Left: Hip [employer]-[id number] 12/20/2034 [id number] / / [id number] Liner Or3o Dual Mbility Xlpe 28/40 - [id number] Implanted:Qty: 1 on 06/11/2025 by Drew Beverly MD at [facility] Left: Hip [employer]-[id number] 01/11/2035 [id number] / / [id number] Chg Head Oxinium Fem 09/09 28m - [id number] Implanted:Qty: 1 on 06/11/2025 by Drew Beverly MD at [facility] Left: Hip [employer]-[id number] 02/03/2035 [id number] / / [id number] Polarstem Cementless Tiha 4 - [id number] Implanted:Qty: 1 on 06/11/2025 by Drew Beverly MD at [facility] Left: Hip [employer]-[id number] 02/01/2031 [id number] / / [id number] Procedures Procedure Name Priority Date/Time Associated Diagnosis Comments XR PELVIS 1 OR 2 VIEWS Routine 07/24/2025 10:57 AM EDT S/P total left hip arthroplasty from Last 3 Months Results * XR Pelvis 1 or 2 [...] by Jeffrey Pimentel MD on 1:55 AM us Isidra Randlezlluis fernando PA IMG XR PROCEDURES Final Resul t from Last 3 Months Additional Health Concerns Active Problems Noted Date Diagnosed Date Autogenerated Problem 06/12/2025 Insurance MARY NATARAJAN [id number] [facility] MEDIC[facility] Advance Directives Documents on File Type Date Recorded 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
--- NOTE | 2025-09-18 08:40 | MR_ITS ---
FINAL REPORT TECHNIQUE: Multiplanar MR without contrast CLINICAL HISTORY: PAIN IN LEFT KNEE. MEDIAL SIDED KNEE PAIN FINDINGS: Articular cartilage: Moderate diffuse thinning. Marrow signal: Oval, well-circumscribed T2 hyperintense lesion in the central tibial metaphysis measuring up to 18 mm, could represent bone cyst or enchondroma. Joint fluid: Small joint effusion. Menisci: Small tear involving the root of the posterior horn lateral meniscus occurring at the meniscal femoral ligament insertion. Medial meniscus intact. Ligaments: Collateral, cruciate and patellofemoral ligaments intact Tendons: Quadriceps and patellar tendon normal IMPRESSION: Small tear involving the root of the posterior horn lateral meniscus. 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 Reviewed, Interpreted and Dictated by Emeli Croft MD Transcribed by Caitlin Deluca Authenticated and [facility]
--- OUTSIDE RECORDS SUMMARY | 2025-09-18 08:40 | XMS_ITS | Encounter Summary ---
Author Organization Healthcare Address [address] [place] [address] Care Team Providers Care Industrial Design Engineer Name Role Phone Sergio Giron MD Primary Care Provider [phone] Encounter Details Date Type Department Care Team (Late st Contact Info) Description 04/12/2025 Orders Only External Location [address] [place] [address] Provider, External Social History Tobacco Use Types Packs/Day Years Used Date Smoking Tobacco: Never Assessed Comments Unknown Sex and Gender Information Value Date Recorded Sex Assigned at Not on file Legal Sex Female 7:41 PM EDT Gender Identity Not on file Sexual Orientation Not on file documented as of this encounter Plan of Treatment Not on file documented as of this encounter Procedures Procedure Name Priority Date/Time Associated Diagnosis Comments MR OUTSIDE IMAGES 04/12/2025 7:45 AM EDT documented in this encounter Results * MR transfer of outside films (04/12/2025 7:45 AM EDT) Anatomical Region Laterality Modality Magnetic Resonan ce 04/12/2025 7:45 AM EDT us External Provider IMG MRI PROCEDURES Final Resul t documented in this encounter Visit Diagnoses Not on filedocumented in this encounter Care Teams Industrial Design Engineer Relationship Specialty Start Date End Date Sergio Giron MD [address] [place] [address] PCP - General 04/20/25 documented as of this encounter
--- OUTSIDE RECORDS SUMMARY | 2025-09-18 08:40 | XMS_ITS | Data Portability ---
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 PROCEDURE: Right breast localized excisional biopsy and fluoroscopic interpretation. SURGEON: Arlyn Silva MD [employer] PREVENTION SPECIALIST: Basil Perez, who helped with retraction. SPECIMEN: [...] Organization Details Last Modified Time Details Appointments MAMMOGRA M 2025 12:45P M MAMMOGRAM Not available Not available Not available RECHECK 2025 01:00P M LISA JIANG JIG BORER Not available Not available Not available Lab None recorded . Referral None recorded . Procedures None recorded . Surgeries None recorded . Imaging MAMMO, screenin g, tomosynt hesis, bilatera l, w/ CAD - Due after . Clinic follow-u p same day please. Thanks! 2024 025 [facility], [address] [place] [address], [phone], 07/23/2025 11:25:41 MAMMO, screenin g, tomosynt hesis, bilatera l, w/ CAD - Due in 10/2024. Clinic follow-u p with Pat same day please. Thanks! [address] [facility], [address] [place] [address], [address], 08/25/2024 08:56:56 Medication Orders None recorded . Patient TargetsNo targets recorded. Patient InstructionsNo instructions recorded. Reason for Referral None Reported. Results Created Date Observation Date Name Description Value Unit Range Abnormal Flag Note LastModifiedBy Organization Detail LastModifiedTime 11/11/19 24 11/11/2023 COMPL ETE BLOOD COUNT white blood cells 9.5 10*3/ uL 3.8-10 .8 normal Not Available [facility] [address] [place] [address], [address], 11/11/2023 11:33:30 11/11/19 24 11/11/2023 COMPL ETE BLOOD COUNT red blood cells 4.62 10*6/ uL 3.80-5 .20 normal Not Available [facility] [address] [place] [address], [address], 11/11/2023 11:33:30 11/11/19 24 11/11/2023 COMPL ETE BLOOD COUNT hemoglobin 14.3 g/dL 12.0-1 6.0 normal Not Available [facility] [address] [place] [address], [address], 11/11/2023 11:33:30 11/11/19 24 11/11/2023 COMPL ETE BLOOD COUNT hematocrit 42.6 % 35.0-4 7.0 normal Not Available [facility] [address] [place] [address], [address], 11/11/2023 11:33:30 11/11/19 24 11/11/2023 COMPL ETE BLOOD COUNT MCV 92 fL 80-100 normal Not Available [facility] [address] [place] [address], [address], 11/11/2023 11:33:30 11/11/19 24 11/11/2023 COMPL ETE BLOOD COUNT MCH 31 pg 26-35 normal Not Available [facility] [address] [place] [address], [address], 11/11/2023 11:33:30 11/11/19 24 11/11/2023 COMPL ETE BLOOD COUNT MCHC 34 g/dL 32-36 normal Not Available [facility] [address] [place] [address], [address], 11/11/2023 11:33:30 11/11/19 24 11/11/2023 COMPL ETE BLOOD COUNT RDW 13.6 % 11.0-1 5.0 normal Not Available [facility] [address] [place] [address], [address], 11/11/2023 11:33:30 11/11/19 24 11/11/2023 COMPL ETE BLOOD COUNT MPV 8.3 fL 6.2-10 .5 normal Not Available [facility] [address] [place] [address], [address], 11/11/2023 11:33:30 11/11/19 24 11/11/2023 COMPL ETE BLOOD COUNT platelet count 300 10*3/ uL 150-40 0 normal Not Available [facility] [address] [place] [address], [address], 11/11/2023 11:33:30 11/11/19 24 11/11/2023 COMPL ETE BLOOD COUNT neutrophil,a bsolute 7.4 10*3/ uL 1.6-8. 4 normal Not Available [facility] [address] [place] [address], [address], 11/11/2023 11:33:30 11/11/19 24 11/11/2023 COMPL ETE BLOOD COUNT lymphocyte,a bsolute 1.1 10*3/ uL 0.4-5. 1 normal Not Available [facility] [address] [place] [address], [address], 11/11/2023 11:33:30 11/11/19 24 11/11/2023 COMPL ETE BLOOD COUNT monocyte,abs olute 0.8 10*3/ uL 0.0-1. 2 normal Not Available [facility] [address] [place] [address], [address], 11/11/2023 11:33:30 11/11/19 24 11/11/2023 COMPL ETE BLOOD COUNT eosinophil,a bsolute 0.1 10*3/ uL 0.0-0. 8 normal Not Available [facility] [address] [place] [address], [address], 11/11/2023 11:33:30 11/11/19 24 11/11/2023 COMPL ETE BLOOD COUNT basophil,abs olute 0.1 10*3/ uL 0.0-0. 3 normal Not Available [facility] [address] [place] [address], [address], 11/11/2023 11:33:30 11/11/19 24 11/11/2023 COMPL ETE BLOOD COUNT % neutrophils 78.1 % 42.0-7 8.0 high Not Available [facility] [address] [place] [address], [address], 11/11/2023 11:33:30 11/11/19 24 11/11/2023 COMPL ETE BLOOD COUNT % lymphocytes 12.1 % 11.0-4 7.0 normal Not Available [facility] [address] [place] [address], [address], 11/11/2023 11:33:30 11/11/19 24 11/11/2023 COMPL ETE BLOOD COUNT % monocytes 8.4 % 0.0-11 .0 normal Not Available [facility] [address] [place] [address], [address], 11/11/2023 11:33:30 11/11/19 24 11/11/2023 COMPL ETE BLOOD COUNT % eosinophils 0.7 % 0.0-7. 0 normal Not Available [facility] [address] [place] [address], [address], 11/11/2023 11:33:30 11/11/19 24 11/11/2023 COMPL ETE BLOOD COUNT % basophils 0.7 % 0.0-3. 0 normal Not Available [facility] [address] [place] [address], [address], 11/11/2023 11:33:30 11/11/19 24 11/11/2023 COMPL ETE BLOOD COUNT nucleated red cells 0.0 % 0.0-0. 9 normal Not Available [facility] [address] [place] [address], [address], 11/11/2023 11:33:30 11/11/19 24 11/11/2023 COMPL ETE BLOOD COUNT nucleated RBCs, absolute 0.00 10*3/ uL not estab. normal Not Available [facility] [address] [place] [address], [address], 11/11/2023 11:33:30 11/11/19 24 11/11/2023 COMP. METAB OLIC PANEL glucose 91 mg/dL 74-100 normal Not Available [facility] [address] [place] [address], [address], 11/11/2023 12:18:41 11/11/19 24 11/11/2023 COMP. METAB OLIC PANEL blood urea nitrogen 18 mg/dL 6-20 normal Not Available [facility] [address] [place] [address], [address], 11/11/2023 12:18:41 11/11/19 24 11/11/2023 COMP. METAB OLIC PANEL creatinine 0.67 mg/dL 0.50-0 .95 normal Not Available [facility] [address] [place] [address], [address], 11/11/2023 12:18:41 11/11/19 24 11/11/2023 COMP. METAB OLIC PANEL BUN/creatini ne ratio 27 (calc ) 10-20 high Not Available [facility] [address] [place] [address], [address], 11/11/2023 12:18:41 11/11/19 24 11/11/2023 COMP. METAB OLIC PANEL sodium 138 mmol/ L 136-14 5 normal Not Available [facility] [address] [place] [address], [address], 11/11/2023 12:18:41 11/11/19 24 11/11/2023 COMP. METAB OLIC PANEL potassium 4.4 mmol/ L 3.4-5. 0 normal Not Available [facility] [address] [place] [address], [address], 11/11/2023 12:18:41 11/11/19 24 11/11/2023 COMP. METAB OLIC PANEL chloride 99 mmol/ L 98-107 normal Not Available [facility] [address] [place] [address], [address], 11/11/2023 12:18:41 11/11/19 24 11/11/2023 COMP. METAB OLIC PANEL carbon dioxide 28 mmol/ L 22-31 normal Not Available [facility] [address] [place] [address], [address], 11/11/2023 12:18:41 11/11/19 24 11/11/2023 COMP. METAB OLIC PANEL anion gap 11 (calc ) 7-25 normal Not Available [facility] [address] [place] [address], [address], 11/11/2023 12:18:41 11/11/19 24 11/11/2023 COMP. METAB OLIC PANEL calcium 9.8 mg/dL 8.6-10 .2 normal Not Available [facility] [address] [place] [address], [address], 11/11/2023 12:18:41 11/11/19 24 11/11/2023 COMP. METAB OLIC PANEL total protein 7.5 g/dL 6.4-8. 3 normal Not Available [facility] [address] [place] [address], [address], 11/11/2023 12:18:41 11/11/19 24 11/11/2023 COMP. METAB OLIC PANEL albumin 4.4 g/dL 3.5-5. 2 normal Not Available [facility] [address] [place] [address], [address], 11/11/2023 12:18:41 11/11/19 24 11/11/2023 COMP. METAB OLIC PANEL globulin 3.1 1.5-4. 5 normal Not Available [facility] [address] [place] [address], [address], 11/11/2023 12:18:41 11/11/19 24 11/11/2023 COMP. METAB OLIC PANEL albumin/glob ulin ratio 1.4 (calc ) 1.1-2. 5 normal Not Available [facility] [address] [place] [address], [address], 11/11/2023 12:18:41 11/11/19 24 11/11/2023 COMP. METAB OLIC PANEL bilirubin, total 0.6 mg/dL 0.1-1. 2 normal Not Available [facility] [address] [place] [address], [address], 11/11/2023 12:18:41 11/11/19 24 11/11/2023 COMP. METAB OLIC PANEL alkaline phosphatase 111 U/L 30-121 normal Not Available [facility] [address] [place] [address], [address], 11/11/2023 12:18:41 11/11/19 24 11/11/2023 COMP. METAB OLIC PANEL AST 18 U/L 0-32 normal Not Available [facility] [address] [place] [address], [address], 11/11/2023 12:18:41 11/11/19 24 11/11/2023 COMP. METAB OLIC PANEL ALT 24 U/L 0-33 normal Not Available [facility] [address] [place] [address], [address], 11/11/2023 12:18:41 11/11/19 24 11/11/2023 COMP. METAB OLIC PANEL GFR 91 >= 60 normal NOT E New calcu latio n for GFR (CKD- EPI 2020) is formu lated witho ut race adjus tment facto rs at the recom menda tion of the Natio nal Kidne y Found ation and Ameri can Socie ty of Nephr ology . This calcu latio n has not been valid ated in pregn ant women . For pedia tric patie nts refer to https ://carl nunes.stephen león/pr ofess ional s/KDO QI/gf r_cal culat orPed Not Available [facility] [address] [facility], [place], [address], 11/11/2023 12:18:41 11/12/19 24 11/12/2023 SURGI SIVA surgical SEE BELOW normal Depar tment of Patho logy Surgi siva Patho logy Repor t NAME: SHAWNA STROUD PATH. :SS-2 Copy to: Diagn osis: Right breas t [...] e quali ty for effec tive [place], [place], [employer] insurance verifier tor testi ng. JAB 11/12 03:06 PM Micro scopi c Descr [...] 10:27 Page 1 of 1 Not Available [facility] [address] [facility], [place], [address], 11/18/2023 10:27:38 10/14/19 24 09/14/2023 MAMMO , unila teral , right and US, breas t, right No observ ation record ed. [email or web address] [facility] [address], [place], [address], 10/26/2023 14:07:04 11/11/19 24 11/11/2023 US R brst guide d needl e LOC [place] [address] [place] [address] Abdullahi bullard Name: SHAWNA bullard : 949 Abdullahi ubllard 9 Orderi ng Provid er: ISABEL RINA DONATO EXAM DATE: 2023 EXAM: US R BRST [...] By: Manuel Mccallum on 024 10:52 AM [facility] [address] [facility], [place], [address], 11/11/2023 13:58:50 11/19/19 24 05/30/2021 MAMMO , unila teral , right and US, breas t, right No observ ation record ed. [email or web address] Not Available 2023 13:39:24 05/19/20 24 05/19/2024 MAMMO , diagn ostic , tomos ynthe sis, unila teral , w/ CAD [facility] [address] [place] [address] [place] [address] Patiedilma t Name: SHAWNA bullard : 949 Age: 73 years Patiedilma bullard 9 Orderi ng Provid er: ISABEL [...] By: Abner Ballard MD on 11:53 AM [email or web address] [facility] [address], [address], 05/23/2024 08:43:02 11/22/19 25 11/22/2024 MAMMO , scree pineda, tomos ynthe sis, bilat eral, w/ CAD [facility] [address] [place] [address] [place] [address] Patiedilma t Name: SHAWNA bullard : 949 Age: 74 years Patien t 9 Orderi ng Provid er: NIMCO Jose TEETEE Daniel EXAM DATE: 2024 EXAM: MG SCREEN [...] findin g, routin e follow -up. The abdullahi t has been entere d into an automa [employer] er system . Result s were mailed or given to the abdullahi t. Interp reted By: Annie angeles MD Electr onical ly Signed By: Annie angeles MD on 025 11:36 AM [facility] [address], [address], 11/23/2024 05:49:27 Result Notes Documentation Provider Name and Address Organization Details Recorded Time Mammo, Diagnostic, Tomosynthesis, Unilateral, W/ Cad : [address] [address] Patient Name: SHAWNA MAO Patient : 1950 Age: 73 years Patient Ordering Provider: ARLYN SILVA EXAM DATE: 05/19/2024 EXAM: MG RT DIAG NIALL MAMMOGRAM INDICATION: Atypical ductal hyperplasia PROCEDURE: Multislice imaging of the right breast was performed including standard views using [employer] tomosynthesis equipment (3D mammography). 2D [...] By: Abner Ballard MD N SILVA MD [address] [place], [place] [address] [place] [address] 05/23/2024 08:43:02 Mammo, Screening, Tomosynthesis, Bilateral, W/ Cad : [place] [address] Patient Name: SHAWNA MAO Patient : 1950 [...] breasts was performed in standard projections using [employer] tomosynthesis equipment (3D mammography). 2D [...] patient. Interpreted By: Annie Byrne MD JIANG, JIG BORER [address] [place] [address], [address], [facility] 11/22/2024 11:53:03 Problems Name Problem SNOMED Code Status Onset Date Resolution Date Notes Provider Name and Address Organization Details Recorded Time Hypertensiv e disorder 34116896 [facility] 13:08:02 Atypical ductal hyperplasia of left breast 9001675249517 9104 Active 2023 ARLYN SILVA MD [address] [place] [address], [address], [facility] 4 14:07:56 Atypical ductal hyperplasia of right breast 6452492645229 9100 Active 2023 ARLYN SILVA MD [address] [place] [address], [address], [facility] 4 14:08:08 Problem Notes None recorded. Procedures Surgical History Date Name Laterality Status Provider Name and Address Organization Details Recorded Time 11/12/19 24 breast procedure completed [facility] 11/18/2023 14:10:28 09/14/20 23 Date of Last Mammogram completed [facility] 10/25/2023 13:11:04 arthroplasty completed [facility] 10/25/2023 13:10:21 Imaging Results None recorded. Procedure [...] (BMI) Body weight Heart rate Oxygen saturation Systolic And Diastolic Provider Name and Address Organization Details Last Updated DateTime 4 162.56 cm 37.8 kg/m2 27189.3 2 g 82 /min 94 % 136/86 mm[Hg] [facility] 4 13:37:41 Date Recorded Body height Body mass index (BMI) Body weight Heart rate Oxygen saturation Systolic And Diastolic Provider Name and Address Organization Details Last Updated DateTime 4 162.56 cm 37.8 kg/m2 24677.3 2 g 67 /min 97 % 162/82 mm[Hg] [facility] 4 14:18:11 Date Recorded Body height Body mass index (BMI) Body weight Heart rate Oxygen saturation Systolic And Diastolic Provider Name and Address Organization Details Last Updated DateTime 5 162.56 cm 36.6 kg/m2 90650.2 7 g 71 /min 98 % 132/88 mm[Hg] Latoya Nails [facility] 5 11:24:37 Date Recorded Body height Body mass index (BMI) Body weight Heart rate Oxygen saturation Systolic And Diastolic Provider Name and Address Organization Details Last Updated DateTime 4 162.56 cm 37 kg/m2 89899.4 6 g 61 /min 96 % 128/84 mm[Hg] Latoya Nails [facility] 4 11:54:05 Social History Question Answer Notes LastModified by [employer] Details LastModified Time Tobacco Smoking Status Former Smoker [facility] 10/25/2023 13:10:01 When Did You Quit Smoking? 16+yearssinc elastcigaret te [email or web address] Information not available 10/25/2023 What Was The Date Of Your Most Recent Tobacco Screening? 11/18/2023 [email or web address] Information not available 11/18/2023 Has Tobacco Cessation Counseling Been Provided? No [email or web address] Information not available 10/25/2023 Sex: Unknown Functional Status Question Answer Note LastModified by [employer] Details LastModified Time Do you use any illicit or recreational drugs? No [email or web address] Information not available 10/25/2023 Do you or have you ever used any other forms of tobacco or nicotine? No [email or web address] Information not available 10/25/2023 What is your level of alcohol consumption? Occasional [email or web address] Information not available 10/25/2023 Are you currently employed? No [email or web address] Information not available 10/25/2023 Mental Status None recorded. Family History Relationship Description Onset Age of this Age Resolved Age Notes LastModified by Organization Details LastModified Time Father Aneurysm AORTA ANEYRY SM [email or web address] Not available 10/25/2023 13:09:01 Medical History Condition [...] Diagnosis SNOMED-CT Code Diagnosis ICD10 Code Diagnosis IMO Codes Diagnosis Note [id number] ARLYN SILVA MD BREAST SURGERY [address] [place] [address] 10/25/2023 12:55:54 10/25/2023 14:31:07 Atypical ductal hyperplasia of right breast [id number] N60.91 Patient has a small mass in [...] her scheduled for November 12 at the [facility]. [id number] ARLYN SILVA MD SURGERY SCHEDULE [address] [place] [address] 11/12/2023 06:43:03 11/12/2023 06:44:20 Atypical ductal hyperplasia of right breast 8071058806 1538817 N60.91 Patient has a small mass in [...] her scheduled for November 12 at the [facility]. [id number] ARLYN SIVLA MD BREAST SURGERY SB [address] [place] [address] 11/18/2023 14:04:09 11/18/2023 15:00:22 Atypical ductal hyperplasia of right breast 1611009649 5388576 N60.91 Patient is status post excision of a papilloma and atypical ductal hyperplasi a with only a small focus of ADH seen and nothing at the margins. I offered to place patient and our high risk clinic and follow her more closely with imaging but she would like to continue her imaging at [facility] and she will come back as needed. She is healing very nicely. [id number] LISA JIANG APRN BREAST SURGERY SB [address] [place] [address] 05/19/2024 11:09:52 05/19/2024 13:13:04 Atypical ductal hyperplasia of right breast 0800315388 7821951 N60.91 Screening for malignant neoplasm of breast 288080821 Z12.39 [facility] malignant neoplasm of breast 6688342349 69087 Z91.89 NCCN Guidelines for patients over 20% [...] yearly. Last bilateral imaging in 08/2023 at [facility]. Option to continue mammograms there vs here discussed. She would like to transfer imaging here. We will plan high risk clinical breast exams same day as mammograms . Order placed as below. If negative in 10/2024, go to once a year. She v/u and agrees with plan. She is welcome to call at anytime if new problems arise. [id number] LISA JIANG APRN BREAST SURGERY [address] [place] [address] 11/22/2024 10:35:36 11/22/2024 13:54:56 Atypical ductal hyperplasia of right breast 2614010659 6953756 N60.91 At [facility] for malignant neoplasm of breast 6929020208 02932 Z91.89 NCCN Guidelines for patients over 20% [...] arise. Screening for malignant neoplasm of breast [id number] Z12.39 Health Concerns Section Related Observation LastModified by Organization Detai ls LastModified Time None Recorded Concern Status LastModified by Organization Details LastModified Time None Recorded Advance Directives Directive None Recorded Payers Insurance Date Sequence Insurance Name Policy Number Policy Deutsch Covered Member ID Deutsch Member ID Guarantor Name 11/12/2023 2 [place] Shawna Mao [id number] Shawna Mao 11/22/2024 1 [facility] (MEDICARE REPLACEMENT/A DVANTAGE - PPO) [id number] Shawna Mao [id number] Shawna Mao Notes Date Note Type Note Provider Name and Address Organization Details Recorded Time 10/25/2023 text/html BreastReported b y Patient Patient is a 73-year-old who had an abnormal mammogram in August at [facility] and [facility]. There is a possible mass that was [...] breast or ovarian cancer. ARLYN SILVA MD [address] [place] [address], [address], [facility] 10/25/2023 14:09:01 11/18/2023 text/html BreastReported b y Patient Interval history 11/18/2023: Patient is status post excision of an area of atypia and papilloma last week. She had some soreness but overall is doing well. Pathology revealed a focal area of atypical ductal hyperplasia but nothing at the margins and no residual papilloma was seen. 3: Patient is a 73-year-old who had an abnormal mammogram in August at [facility]. There is a possible mass that [...] or ovarian cancer. ARLYN SILVA MD [address] [place], [address], [facility] 11/18/2023 14:59:01 05/19/2024 text/html ROS as noted in the HPI Interval history 05/19/2024: Patient completed follow-up right diagnostic mammogram this morning, resulted BiRADS 2. No new mass or microcalcifications. She is recommended to proceed forward with routine screening. She is now considered high risk due to her ADH diagnosis. Family history is negative for breast cancer. She denies any new or concerning findings on home self breast exams. Risk Assessment:ADH/28.64% by [facility] self breast exam: yesMammogram: diagnostic right mammogram 05/19/2024 results: BiRADS 2Last bilateral mammogram 08/2023 at [facility] Breast MRI: NEVER Interval history 11/18/2023: Patient is status post excision of an area of atypia and papilloma last week. She had some soreness but overall is doing well. Pathology revealed a focal area of atypical ductal hyperplasia but nothing at the margins and no residual papilloma was seen. 3: Patient is a 73-year-old who had an abnormal mammogram in August at [facility] and [facility]. There is a possible mass that was [...] history of breast or ovarian cancer. LISA JIANG APRN [address] [place], [address], [facility] 05/19/2024 13:06:45 11/22/2024 text/html ROS as noted in the HPI Interval history 11/22/2024: Patient here for ongoing high risk care. She completed her bilateral screening mammogram this morning, resulted BiRADS 2. She denies any new breast concerns. She is having trouble with left sciatica and is scheduled to see a specialist in [facility] tomorrow. Risk Assessment:ADH/28.64% by [facility] self breast exam: yesMammogram: diagnostic right mammogram 05/19/2024 results: BiRADS 2Last bilateral mammogram 08/2023 at [facility] Breast MRI: NEVER Interval history 05/19/2024: [...] had an abnormal mammogram in August at [facility] and [place]. There is a [...] of breast or ovarian cancer. LISA JIANG, JIG BORER [address] [place], [address], [facility] 11/22/2024 11:57:17 OBGyn Episode No OBEpisode recorded.
--- OUTSIDE RECORDS SUMMARY | 2025-09-18 08:40 | XMS_ITS | Clinical Summary ---
Author Organization [facility] Address [address] [place] [address] Care Team Providers Care Outside Plant Field Engineer Name Role Phone Sergio Giron MD Primary Care Provider + [phone] Allergies No known active allergies Medications celecoxib (CeleBREX) 200 MG capsule Take 1 capsule by mouth Daily. Active amLODIPine (NORVASC) 5 MG tablet Take 1 tablet by mouth Daily. Active Active Problems Problem Noted Date Diagnosed Date Spinal stenosis, lumbar dave on, with neurogenic claudication 10/09/2024 Arthritis of right hip 07/14/2021 HTN (hypertension) 07/14/2021 Status post total replacement of right hip 07/14 Obesity 07/14/2021 Immunizations Immunization Administration Dates Next Due COVID-19 (MODERNA) 1st,2nd,3rd Dose Monovalent 0 12/04/2020,11/06/2020 Family History Medical History Relation Name Comments Kidney disease Father Willy Mckinney Cancer of and removed kidney Arthritis Mother Shawna Bauer Arthritic Relation Name Status Comments Father Willy Mckinney Mother Shawna Bauer Social History Tobacco Use Types Packs/Day Years Used Date Smoking Tobacco: Former Cigarettes 1 15 0 03/19/1964 - 03/19/1979 Passive Smoke Exposure: Past Smokeless Tobacco: Never Alcohol Use Standard Drinks/Week Comments Yes 2 (1 standard drink = 0.6 oz pur e alcohol) PHQ-2 Answer Date Recorded Patient Health Questionnaire-9 Score 14 11/20/2024 Comments No Sex and Gender Information Value Date Recorded Sex Assigned at Not on file Legal Sex Female 10:23 AM EDT Gender Identity Not on file Sexual Orientation Not on file Last Filed Vital Signs Vital Sign Reading Time Taken Comments Blood Pressure 130/90 11/20/2024 12:41 PM EST Pulse 84 11/20/2024 12:41 PM EST Temperature 36.2 C (97.1 F) 11/20/2024 11:06 AM EST Respiratory Rate 18 11/20/2024 12:41 PM EST Oxygen Saturation 97% 11/20/2024 12:41 PM EST Inhaled Oxygen Concentration - - Weight 95.7 kg (211 lb) 11/20/2024 12:41 PM EST Height 165.1 cm (5' 5 ) 11/20/2024 12:41 PM EST Body Mass Index 35.11 11/20/2024 12:41 PM EST Plan of Treatment Scheduled Procedures Name Priority Associated Diagnoses Date/Ti me CV MYELOGRAM LUMBAR SPINE Spinal stenosis, lumbar region, with neurogenic claudication Health Maintenance Due Date Last Done Comments DXA SCAN 1949 TDAP/TD VACCINES (1 - Tdap) 1968 Pneumococcal Vaccine 50+ (1 of 1 - PCV) 1999 ZOSTER VACCINE (1 of 2) 1999 COVID-19 Vaccine (3 - Moderna risk series) 01/01/2021 12/04/2020, 11/06/2020 ANNUAL WELLNESS VISIT 07/03/2021 HEPATITIS C SCREENING 07/03/2021 RSV Vaccine - Adults (1 - 1- dose 75+ series) 2024 INFLUENZA VACCINE 04/27/2025 Medical Devices Implanted Type Area Rock Room Worker Device Identifier Shelf Expiration Date Model / Serial / Lot Right Wrist Orif Implant Shll Acet R3 3h Std 52mm - [id number] Implanted:Qty: 1 on 07/14/2021 by Parag Bazzi MD at [facility] Implant Right: Hip [employer] [id number] 04/10/2031 [id number] / / [id number] Scrw Sph Hd Reflection 6.5x20mm - [id number] Implanted:Qty: 1 on 07/14/2021 by Parag Bazzi MD at [facility] Implant Right: Hip [employer] [id number] 04/05/2031 [id number] / / [id number] Scrw Sph Hd Reflection 6.5x25mm - [id number] Implanted:Qty: 1 on 07/14/2021 by Parag Bazzi MD at [facility] Implant Right: Hip [employer] [id number] 12/24/2030 [id number] / / [id number] Stem Fem/Hip Polarstem W/Colr Std Sz3 - [id number] Implanted:Qty: 1 on 07/14/2021 by Parag Bazzi MD at [facility] Implant Right: Hip [employer] [id number] 01/30/2028 [id number] / / [id number] Liner Acet R3 Xlpe 0d 76w33fr - [id number] Implanted:Qty: 1 on 07/14/2021 by Parag Bazzi MD at [facility] Implant Right: Hip [employer] [id number] 04/14/2031 [id number] / / [id number] Hd Fem/Hip Oxinium Tpr 09/09 36mm Pls0 - [id number] Implanted:Qty: 1 on 07/14/2021 by Parag Bazzi MD at [facility] Implant Right: Hip [employer] [id number] 10/26/2030 [id number] / / [id number] Totl Hip Hosea [place] Nephew - [id number] Implanted:Qty: 1 on 07/14/2021 by Parag Bazzi MD at [facility] Implant Right: Hip [employer] CAPHIPTOTAL SN2 / / Insurance Medicare [employer] PPO Advance Directives Documents on File Type Date Recorded Patient Institutional Commodity Analyst Expl anation LIVING WILL - SCAN 07/14/2021 7:44 AM ELODIA ING WILL, BHLEX, 07/10/2021 POWER OF DREDGE MATE - SCAN 07/14/2021 7:44 AM POWER OF DREDGE MATE, JUNAIDEX, 06/16/2021 * CPR (Attempt to Resuscitate) (Latest Code Status on File) Date Activated Date Inactivated Comments 07/14/2021 2:53 PM 07/15/2021 4:47 PM Question Answer Comments Code Status (Patient has no pulse and is not breathing): CPR (Attempt to Resuscitate) Medical Interventions (Patie nt has pulse or is breathing): Full Healthcare Agents on File Name Relationship Healthcare Agent Relationship Communication Liosissy Mao Spouse Health Care Surrogate Care Teams Outside Plant Field Engineer Relationship Specialty Start Date End Date Sergio Giron MD [address] [facility] [address] [place] [address] PCP - General Family Medicine 07/03/21
--- OUTSIDE RECORDS SUMMARY | 2025-09-18 08:40 | XMS_ITS | Patient Health Record ---
Author Organization [facility] Address [address] [facility] [address] MARY Natarajan [id number] Care Team Providers Care Marketing Account Manager Name Role Phone Sergio Giron Primary Care Provider Allergies No Known Allergies Results Component Value Reference Range Notes MRI : Hip, left, without con trast Reviewed date:04/17/2025 11:39:17 AM Interpretation:Severe Osteoarthritis Performing Lab: Notes/Report: Severe Osteoarthritis Urinalysis - Inhouse Reviewed date:05/31/2025 11:20:52 PM Interpretation: Performing Lab: Notes/Report: Color/Clarity yellow/clear Leuk Neg Nitrite Neg Urobili 3.2 Protein Neg pH 5.5 Blood Neg Sp. Gr. 1.020 Ketone Neg Bili Neg Gluc Neg P-Comprehensive Metabolic Pa dixon (CMP) Reviewed date:08/07/2025 09:45:48 AM Interpretation:Alk Phos 129 Performing Lab: Notes/Report: Test performed by [employer] [employer] [place] [address] [place] [address] , [address], [place] [address] Tino Richard MD, Scientific Investigator CLIA: [id number] Sodium 138 135-145 mmol/L Potassium 4.5 3.5-5.3 [...] 122 Performing Lab: Notes/Report: Test performed by [facility] [address] [place] [address] , [address] , [place] [address] Tino Richard MD, Scientific Investigator CLIA: [id number] Lipid Panel Footnote See Below *Based on optimal reference values. Please refer to the DOS for additional information regarding diagnostic lipid reference ranges, patient management based on the recently updated lipid guidelines ([place] [employer]/[place] Heart Association Task Force on Clinical Practice Guidelines (2018), and pediatric diagnostic lipid reference values (<18 years old). Total Cholesterol 228 <200 mg/dL Triglycerides 92 <150 mg/dL HDL Cholesterol 88 >50 mg/dL Total Cholesterol / HDL Ratio* 2.59 <3.99 Ratio Non-HDL Cholesterol 140 <130 mg/dL LDL Cholesterol (Calculation) 122 <100 mg/dL LDL / HDL Ratio* 1.38 <1.99 Ratio LDL Cholesterol Patient History Test Date: 08/07/2024 LDL Results: 130 Units: mg/dL % Change: - Test Date: 08/06/2025 LDL Results: 122 Units: mg/dL % Change: -6% P-TSH reflex to FT4 Reviewed date:08/07/2025 09:45:48 AM Interpretation:Normal Performing Lab: Notes/Report: Test performed by [facility] [address] [place], [place] [address] , [address], [place] [address] Tino Richard MD, Scientific Investigator CLIA: [id number] TSH reflex to FT4 2.46 0.43-5.25 mU/L P-Microalbumin/Creatinine, R andom Urine Sample Reviewed date:08/07/2025 09:45:48 AM Interpretation:Normal Performing Lab: Notes/Report: Test performed by [facility] [address] [place] [address] , [address], [place] [address] Tino Richard MD, Scientific Investigator CLIA: [id number] Albumin/Creatinine Ratio, Urine 12 0-30 ug/mg Microalbumin, Urine, Random 1.8 Creatinine, Urine 155.6 P-Uric Acid Reviewed date:08/07/2025 09:45:48 AM Interpretation:Normal Performing Lab: Notes/Report: Test performed by [facility] [address] [place], [place] [address] , [address], [place] [address] Tino Richard MD, Scientific Investigator CLIA: [id number] Uric Acid 5.6 2.4-7.0 mg/dL X ray : Knee, left Reviewed date:09/11/2025 12:05:27 PM Interpretation:Degenerative/Chronic Changes Performing Lab: Notes/Report: Degenerative/Chronic Changes Bone density Reviewed date:04/11/2025 06:16:02 PM Interpretation:osteopenia of forearm Performing Lab: Notes/Report: osteopenia of forearm EKG Reviewed date:01/19/2025 09:01:27 AM Interpretation: Performing Lab: Notes/Report: Urinalysis - Inhouse Reviewed date:12/27/2024 05:32:54 PM Interpretation:Abnormal Performing Lab: Notes/Report: Abnormal Color/Clarity yellow/clear Leuk 1+ Nitrite Pos Urobili 3.2 Protein Neg pH 5.5 Blood Neg Sp. Gr. 1.020 Ketone Neg Bili Neg Gluc Neg TEN-UTI panel Reviewed date:01/01/2025 04:54:22 PM Interpretation:E. Coli Performing Lab: Notes/Report: E. Coli Medications Medication SIG (Take, Route, Frequency, Duration) [...] Status W/U Status Risk Notes Problem Hyperlipidaemia (97614858) Hyperlipidemia NOS (272.4) Active confirmed Problem Osteopenia (318159775) Osteopenia (M85.80) Active confirmed Problem Sciatic nerve lesion (816492081) Piriformis syndrome of left side (G57.02) Active confirmed Problem Arthropathy of lumba r facet joint (391755679) Lumbar facet arthropathy (M47.816) Active confirmed Problem Chronic pain (81335811) Other chronic pain (G89.29) Active confirmed Problem Sciatica (27571230) Lumbago with sciatica, left side (M54.42) Active confirmed Problem Acute cystitis (45299938) Acute cystitis without hematuria (N30.00) Active confirmed Problem Urge incontinence of urine (18632314) Urge incontinence (N39.41) Active confirmed Problem Chronic pain (08740637) Other chronic pain (G89.29) Active confirmed Problem Obese class II (046220886048067) BMI 36.0-36.9,adult (Z68.36) Active confirmed Problem Sciatica (92470083) Right sided sciatica (M54.31) Active confirmed Problem Displacement of lumbar intervertebral disc without myelopathy (43009614) Herniated intervertebral disc of lumbar spine (M51.26) Active confirmed Problem Sciatica (01433103) Acute bilate ral low back pain with left-sided sciatica (M54.42) Active confirmed Problem Degenerative disc disease (55008738) DDD (degenerative disc disease), lumbar (M51.36) Active confirmed Problem Pure hypercholesterolemia (425750293) Pure hypercholesterolemia (E78.00) Active confirmed Problem Arthritis of right hip (8632864623134444) Arthritis of right hip (M16.11) Active confirmed Problem Obesity (709532289) Non morbid o besity (E66.9) Active confirmed Problem Spinal stenosis of lumbar region (05280812) Spinal stenosis of lumbar region without neurogenic claudication (M48.061) Active confirmed Problem Chronic gouty arthritis (17427790) Chronic gout of foot, unspecified cause, 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) Active confirmed Problem Abnormal findings on diagnostic imaging of breast (160194943) Abnormality of right breast on screening mammogram (R92.8) Active confirmed Problem Primary hypertension (90582509) Primary hypertension (I10) Active confirmed Problem Localized, primary osteoarthritis of the pelvic region and thigh (916670561) Arthritis pain, hip (M16.10) Active confirmed Problem Arthritis of joint o f toe (556539558) Arthritis of joint of toe (M19.079) Active confirmed Problem Atypical ductal hyperplasia of right breast (28539815387034527) Atypical ductal hyperplasia of right breast (N60.91) Active confirmed Vital Signs Heart Rate 77 /min 09/10/2025 Blood pressure diastolic 84 mm Hg 09/10/2025 Height 63 in 09/10/2025 Blood pressure systolic 142 mm Hg 09/10/2025 Weight 205.8 lbs 08/06/2025 BMI 36.45 kg/m2 08/06/2025 Encounters Encounter Location Date Provider Diagnosis Jennifer [address] [place], [place] [id number] 12/25/2024 Sergio [place] Pre-op exam Z01.818 ; Lumbago with sciatica, left side M54.42 ; Lumbar facet arthropathy M47.816 ; Herniated intervertebral disc of lumbar spine M51.26 ; Spinal stenosis of lumbar region without neurogenic claudication M48.061 and Primary hypertension I10 [facility] [address] [facility] [address] [place], [place] [id number] 12/27/2024 Sergio [place] Acute UTI N39.0 [facility] [address] [facility] [address] [place] [id number] 02/02/2025 Sergio [place] Primary hypertension I10 [facility] [address] [place], [place] [id number] 02/21/2025 Sergio [place] Lumbago with sciatic a, left side M54.42 ; Non morbid obesity E66.9 and BMI 36.0-36.9,adult Z68.36 [facility] [address] [place], [place] [id number] 04/09/2025 Sergio [place] Pain in left hip M25 .552 ; Lumbago with sciatica, left side M54.42 and Non morbid obesity E66.9 [facility] [address] [place], [place] [id number] 05/31/2025 Sergio [place] Recent urinary tract infection Z87.440 and Other chronic pain G89.29 [facility] [address] [place], [place] [id number] 08/06/2025 Sergio [place] Primary hypertension I10 ; Pure hypercholesterolemia E78.00 ; Chronic gout of foot, unspecified cause, unspecified laterality M1A.0790 ; Non morbid obesity E66.9 and Chronic heartburn R12 [facility] [address] [facility] [address] [place], [place] [id number] 09/10/2025 Sergio [place] Pain in left knee M2 5.562 [facility] [address] [place], [place] [id number] 10/23/2024 Sergio [place] Lumbago with sciatic a, left side M54.42 ; Herniated intervertebral disc of lumbar spine M51.26 ; Lumbar facet arthropathy M47.816 and Spinal stenosis of lumbar region without neurogenic claudication M48.061 [facility] [address] [place] [id number] 10/27/2024 Sergio [place] [facility] [address] [place] [id number] 10/30/2024 Sergio [place] Primary hypertension I10 [facility] [address] [place] [id number] 10/31/2024 Sergio [place] [facility] [address] [place] [id number] 11/23/2024 Sergio [place] [facility] [address] [place] [id number] 03/01/2025 Sergio [place] Screening for osteop orosis Z13.820 [facility] [address] [place] [id number] 03/07/2025 Sergio [place] Non morbid obesity E 66.9 [facility] [address] [place] [id number] 03/07/2025 Sergio [place] [facility] [address] [place] [id number] 04/12/2025 Sergio [place] [facility] [address] [place] [id number] 04/24/2025 Sergio [place] [facility] [address] [place] [id number] 04/26/2025 Sergio [place] [facility] [address] [place] [id number] 06/05/2025 Sergio [place] [facility] [address] [place] [id number] 08/07/2025 Sergio [place] [facility] [address] MARY Natarajan [id number] 09/11/2025 Sergio [place] Pain in left knee M2 5.562 and Positive Vero test of left knee, initial encounter S83.207A Assessments Encounter Date Diagnosis (ICD Code) Assessment Notes Treatment Notes Treatment Clinical Notes Section Notes 10/23/2024 Lumbago with sciatic a, left side [...] in left hip (IC D-10 - M25.552) 05/31/2025 Other chronic pain (ICD-10 - G89.29) 05/31/2025 Recent urinary tract infection (ICD-10 - Z87.440) 08/06/2025 Pure hypercholesterolemia (ICD-10 - E78.00) 10/30/2024 Primary hypertension (ICD-10 - I10) 08/06/2025 Primary hypertension (ICD-10 - I10) 09/10/2025 Pain in left knee (ICD-10 - M25.562) Patient will likely need an MRI 09/11/2025 Pain in left knee (ICD-10 - M25.562) 09/11/[address] of left knee, initial encounter (ICD-10 - S83.207A) 12/25/2024 Lumbar facet arthrop athy (ICD-10 - M47.816) 08/06/2025 Chronic gout of foot , unspecified cause, unspecified laterality (ICD-10 - M1A.0790) 10/23/2024 Lumbar facet arthrop athy (ICD-10 - M47.816) 04/09/2025 Non morbid obesity (ICD-10 - E66.9) 02/21/2025 BMI 36.0-36.9,adult (ICD-10 - Z68.36) 10/23/2024 Spinal stenosis of lumbar region without neurogenic claudication (ICD-10 - M48.061) 12/25/2024 Herniated interverte bral disc of lumbar spine (ICD-10 - M51.26) 08/06/2025 Non morbid obesity (ICD-10 - E66.9) 12/25/2024 Spinal stenosis of lumbar region without neurogenic claudication (ICD-10 - M48.061) 08/06/2025 Chronic heartburn (ICD-10 - R12) 12/25/2024 Primary hypertension (ICD-10 - I10) Plan Of Treatment Pending Test Test Name Order Date MRI : Knee, left, without contrast 09/11 H-CBC 12/25/2024 H-BMP 12/25/2024 Next Appt Details Provider Name:Sergio stafford, 02/04/2026 09:00:00 AM, [address] [facility], [address], [place], [place], [id number], Insurance Providers Payer Name Payer Address Payer Phone Subscriber Number Group Number Insured Name Patient Relationship to Insured Coverage Start Date Coverage End Date [employer] [address] [address] [place], [place] [id number] Shawna Castillo Self - patient is the insured Medications Administered Medication Instructions Date of Administration Dosage Notes Dexamethasone 12/18/2008 1 mL Medical (General) History Medical History History ICD Code Hyperlipidemia Sciatica INFORMATICS NURSE - Severo Arevalo Hypertension Lumbar facet arthropathy Lumbar Disc Disease Left hip Arthritis, s/p joint replacemen t in 2024 Right hip Arthritis, s/p surgery in 2020 Surgical History Surgery Date(Month/Year) Lumbar Laminectomy, Mesial Facetectomy L 3-L4, L4-L5, Left 01/10/2025 LT Hip Replacement 2024 RT Hip Replacement 2020 Hospitalization History Reason Date(Month/Year)
== END 2025-09-18 23:59 | disposition home or self-care (01) ==
LOC: RAD 08:37
PROVIDERS: PCP Family Medicine; Visit Provider Family Medicine
DX: S83.282A Other tear of lateral meniscus, current injury, left knee, initial encounter (principal); R93.6 Abnormal findings on diagnostic imaging of limbs
CPT/HCPCS: 73721